=== PATIENT | female | born 1945 | race Caucasian/White ===

== ENCOUNTER 2024-04-16 01:21 | Outpatient (CLI) | payer MEDICARE, MEDICAID, SELFPAY ==
--- NOTE | 2024-04-16 11:13 | DI.RAD_ITS ---
Exam(s) XR CHEST 2V PA LATERAL EXAM: XR CHEST 2V PA LATERAL CLINICAL HISTORY: F/U RT PNEUMOTHORAX, J94.2. TECHNIQUE: 2D digital imaging was performed. COMPARISON: CT CT OUTSIDE IMAGES CHEST from 03/26/2024 CR XR CHEST PORTABLE 1 VIEW from 04/05/2024 FINDINGS: 2 views: Nasal oxygen tubing noted. Heart size is normal. The mediastinum is not widened. There is bilateral hyperinflation again noted. There has been some re-expansion of the collapsed rig ht lower lobe seen on outside chest x-ray of 04/05/2024. There is a small right pleural effusion aga in noted. There is infiltrate in the right middle lobe medial segment. There is no pneumothorax. I note this patient had a prior chest tube in place on outside CT scan of 03/26/2024. IMPRESSION: Bilateral hyperinflation-COPD. There has been some re-expansion of the right lung. There is still s ome infiltrate in the right middle lobe and there is a small right pleural effusion. There is no pne umothorax. The chest tube which was present on 03/26/2024 has been removed. DATA REPOSITORY: RADIATION DOSE DELIVERED:
== END 2024-04-16 01:41 ==
LOC: DI 01:21
PROVIDERS: PCP Internal Medicine; Visit Provider Internal Medicine
DX: J94.2 Hemothorax (principal); R91.8 Other nonspecific abnormal finding of lung field
CPT/HCPCS: 36415; 71046; 82607; 82728; 82746; 83540; 83550

== ENCOUNTER 2024-04-16 14:18 | Outpatient (CLI) | payer MEDICARE, SELFPAY ==
[2024-04-16 12:22] LABS: Ferritin 493 ng/mL (8-252); Folate 15.8 ng/mL (8.6-20.0); Vitamin B12 664 pg/mL (193-986)
[2024-04-16 12:25] LABS: Iron 111 ug/dL (50-170); Total Iron Binding Capacity 379 ug/dL (250-450); Transferrin Sat 29 % (15-50)
== END 2024-04-16 14:19 | disposition home or self-care (01) ==
LOC: LBO 14:20
PROVIDERS: PCP Internal Medicine; Visit Provider Internal Medicine
DX: D64.9 Anemia, unspecified (principal)
CPT/HCPCS: 36415; 82607; 82728; 82746; 83540; 83550

== ENCOUNTER 2024-04-24 12:22 | Outpatient (CLI) | payer MEDICARE, SELFPAY ==
[2024-04-24 12:01] LABS: HCT 39.8 % (36.0-46.0); HGB 12.2 g/dL (11.2-15.7); MCH 28.6 pg (27.0-33.0); MCHC 30.7 % (32.0-36.0); MCV 93 fL (80-95); MPV 9.9 fL (8.0-11.0); Platelet Count 308 10^3/uL (130-400); RBC 4.27 10^6/uL (3.93-5.22); RDW 18.4 % (11.7-14.6); RDW-SD 62.5 fL; WBC 7.15 10^3/uL (4.4-10.8)
== END 2024-04-24 12:23 | disposition home or self-care (01) ==
LOC: LBO 12:22
PROVIDERS: PCP Internal Medicine; Visit Provider Internal Medicine
DX: D50.9 Iron deficiency anemia, unspecified (principal); J44.9 Chronic obstructive pulmonary disease, unspecified; J90 Pleural effusion, not elsewhere classified; J96.91 Respiratory failure, unspecified with hypoxia
CPT/HCPCS: 36415; 85027

== ENCOUNTER 2024-05-01 02:16 | Outpatient (CLI) | payer MEDICARE, MEDICAID, SELFPAY ==
--- NOTE | 2024-05-01 06:45 | DI.RAD_ITS ---
Exam(s) XR CHEST 2V PA LATERAL EXAM: XR CHEST 2V PA LATERAL CLINICAL HISTORY: f/u resolution pleural effusion,j90 TECHNIQUE: 2D digital imaging was performed. Two views. COMPARISON: CR XR CHEST PORTABLE 1 VIEW from 04/05/2024 CR XR CHEST 2V PA LATERAL from 04/16/2024 FINDINGS: HEART: Normal size. Aorta: Not dilated. Calcified. PULMONARY VASCULATURE: Normal. MEDIASTINUM: Unremarkable. LUNGS: Clear. Hyperinflation. PLEURAL SPACE: No pleural effusion or pneumothorax. BONE:Severe degenerative changes of the right shoulder. SOFT TISSUES: Unremarkable. IMPRESSION: No acute abnormality. DATA REPOSITORY: RADIATION DOSE DELIVERED:
== END 2024-05-01 02:36 ==
LOC: DI 02:16
PROVIDERS: PCP Internal Medicine; Visit Provider Physician Assistant Surgical
DX: J90 Pleural effusion, not elsewhere classified (principal)
CPT/HCPCS: 71046

== ENCOUNTER 2024-05-09 04:10 | Outpatient (CLI) | payer MEDICARE, MEDICAID, SELFPAY ==
[2024-05-09] MEDS: Inhaler, Assist Device 1 EACH MC (11:48)
[2024-05-09] MEDS: Levalbuterol HFA 15 GM INH 4 PUFF IH (11:48)
--- NOTE | 2024-05-28 12:55 | W.PFT ---
Date of service: 05/09/24 Time of Service: 10:05 Pulmonary Function Test Result Indications: COPD Interpretation Spirometry: There is severe airflow limitation. Technically no significant bronchodilator response. Lung Volumes: There is air trapping and hyperinflation. Diffusion Capacity: Decreased diffusion Airway Pressure: Increased airways resistance Impression Severe airflow obstruction with air trapping and a decreased diffusion. Clinical Correlation therefore is recommended.
== END 2024-05-09 04:11 | disposition home or self-care (01) ==
LOC: RT 04:10
PROVIDERS: PCP Internal Medicine; Visit Provider Student in an Organized Health Care Education/Training Program
DX: J44.9 Chronic obstructive pulmonary disease, unspecified (principal)
CPT/HCPCS: 94060; 94726; 94729

== ENCOUNTER 2024-05-23 16:26 | Outpatient (REF) | payer MEDICARE, SELFPAY ==
[2024-05-23 21:31] LABS: Abs Immature Grans 0.02 10^3/uL (0.0-0.06); Absolute Basophil Count 0.06 10^3/uL (0.0-0.2); Absolute Eosinophil Count 0.15 10^3/uL (0.0-0.7); Absolute Lymphocyte Count 1.16 10^3/uL (1.2-3.4); Absolute Monocyte Count 0.63 10^3/uL (0.1-0.8); Absolute Neutrophil Count 7.32 10^3/uL (1.2-6.7); Basophils % 0.6 %; Eosinophils % 1.6 %; HCT 37.3 % (36.0-46.0); HGB 11.8 g/dL (11.2-15.7); Immature Grans % 0.2 %; Lymphocytes % 12.4 %; MCH 28.9 pg (27.0-33.0); MCHC 31.6 % (32.0-36.0); MCV 91 fL (80-95); MPV 10.5 fL (8.0-11.0); Monocytes % 6.7 %; Neutrophils % 78.5 %; Platelet Count 324 10^3/uL (130-400); RBC 4.08 10^6/uL (3.93-5.22); RDW-SD 54.2 fL; WBC 9.34 10^3/uL (4.4-10.8)
[2024-05-23 21:46] LABS: Iron 83 ug/dL (50-170); Total Iron Binding Capacity 341 ug/dL (250-450); Transferrin Sat 24 % (15-50)
[2024-05-23 22:08] LABS: ALT 27 U/L (14-59); AST 21 U/L (15-37); Alkaline Phosphatase 93 U/L (46-116); Anion Gap 6.2 mmol/L (3-11); BUN 16 mg/dL (7-18); Bilirubin, Total 0.21 mg/dL (0.2-1.0); CO2 30.8 mmol/L (21.0-32.0); CREATININE 0.5 mg/dL (0.55-1.02); Calcium 9.4 mg/dL (8.5-10.1); Calculated LDL 101 mg/dL (<100); Chloride 102 mmol/L (98-107); Cholesterol 207 mg/dL (<200); Estimated GFR 96.54 (mL/min/1.73m2); Ferritin 53 ng/mL (8-252); Glucose 88 mg/dL (74-106); HDL Cholesterol 94 mg/dL (40-60); Sodium 139 mmol/L (136-145); Triglyceride 61 mg/dL (<150); Vitamin D 25 Total 18.9 ng/mL (30-100)
== END 2024-05-23 16:27 | disposition home or self-care (01) ==
LOC: NCHCN 16:26
PROVIDERS: PCP Internal Medicine; Visit Provider Nurse Practitioner Family
DX: E78.5 Hyperlipidemia, unspecified (principal); D64.9 Anemia, unspecified; M81.0 Age-related osteoporosis without current pathological fracture
CPT/HCPCS: 80053; 80061; 82306; 82728; 83540; 83550; 85025

== ENCOUNTER 2024-05-28 13:16 | Outpatient (REF) | payer MEDICARE, SELFPAY ==
[2024-05-28 14:28] LABS: Bilirubin Negative (Negative); Blood Negative (Negative); Clarity Clear (Clear); Glucose Negative (Negative); Ketones Negative (Negative); Leukocyte Esterase Negative (Negative); Nitrite Negative (Negative); Specific Gravity 1.015 (1.005-1.025); Urobilinogen 0.2 mg/dL (Up to 0.2)
[2024-05-28 14:48] LABS: COMMENT (LAB VIEW ONLY) < 13.00 mg/dL
== END 2024-05-28 13:17 | disposition home or self-care (01) ==
LOC: NCHCN 13:16
PROVIDERS: PCP Internal Medicine; Visit Provider Nurse Practitioner Family
DX: I10 Essential (primary) hypertension (principal)
CPT/HCPCS: 81003; 82043; 82570

== ENCOUNTER 2024-06-05 10:03 | Emergency (ER) | payer MEDICARE, MEDICAID, SELFPAY ==
[2024-06-05 10:22] VITALS: BP 160/77; PULSE 88; RESP 20; TEMP 36.9; O2SAT 95
--- NOTE | 2024-06-05 10:30 | DI.CT_ITS ---
Exam(s) CT THORACIC LUMBAR SPINE WO EXAM: CT THORACIC LUMBAR SPINE WO CLINICAL HISTORY: left paraspinal pain, eval for fx or mass. TECHNIQUE: Imaging Protocol: Axial computed tomography images with coronal and sagittal reformatted images were created and reviewed. COMPARISON: CT CT OUTSIDE IMAGES CHEST from 03/26/2024 CR XR CHEST 2V PA LATERAL from 04/16/2024 CR XR CHEST 2V PA LATERAL from 05/01/2024 FINDINGS: Bones: There is now is superior compression fracture deformity of T9. This was not present on the pr ior chest x-ray from 05/01/2024. There is loss of less than 15 percent of the height of the vertebral body. There is no retropulsion or involvement of the posterior vertebral body. The alignment of th e spine is normal including the cervicothoracic junction and the thoracolumbar junction. Soft tissues: Moderately severe centrilobular emphysematous changes are present in the lungs. There is unchanged scarring and bronchiectasis in the right middle lobe. No large disk herniations are nena ntified. There is a perineural root sleeve cyst in the left sacrum. IMPRESSION: 1. Superior compression fracture of T9. This is new since the most recent examination from 05/01/2024 . There is loss of less than 15 percent of the height of the vertebral body present. 2. No acute fracture or subluxation in the lumbar spine. RADIATION DOSE DELIVERED: 914.49mGy.cm Total DLP DATA REPOSITORY: All CT scans at this facility are submitted to the National Radiology Data Registry (NRDR) Dose Index Registry (DIR) with the [employer] ([employer]). RADIATION OPTIMIZATION: All CT scans at this facility use at least one of these dose optimization te chniques: automated exposure control; mA and/or kV adjustment per patient size (includes targeted exa ms where dose is matched to clinical indication); or iterative reconstruction.
[2024-06-05] MEDS: predniSONE 20 MG TAB 60 MG PO (10:51)
[2024-06-05] MEDS: Ketorolac 15 MG/ML VIAL IM (10:52)
[2024-06-05] MEDS: Acetaminophen 500 MG TAB 1000 MG PO (10:52)
[2024-06-05] MEDS: Lidocaine 5% Patch 1 PATCH TP (10:52)
[2024-06-05] MEDS: Cyclobenzaprine 10 MG TAB PO (10:52)
[2024-06-05 11:31] LABS: Bilirubin Negative (Negative); Blood Negative (Negative); Clarity Clear (Clear); Glucose Negative (Negative); Ketones Trace mg/dL (Negative); Leukocyte Esterase Negative (Negative); Nitrite Negative (Negative); Urobilinogen 0.2 mg/dL (Up to 0.2)
--- NOTE | 2024-06-05 12:53 | W.ED.GENAD ---
Discharge Plan Disposition Patient Disposition: Home Condition: Good Discharge Details Clinical Impression: Compression fracture of thoracic vertebra Primary Care Provider: Dorcas Nettles ED Provider: Peter Walden Home Meds and New Rx's Prescriptions: New cyclobenzaprine 10 mg tablet 10 mg PO TID Qty: 14 0RF prednisone 50 mg tablet 50 mg PO DAILY Qty: 5 0RF lidocaine [Lidoderm] 5 % adhesive patch,medicated 1 patch Topical Q24H Qty: 15 0RF No Action diltiazem HCl 120 mg capsule,extended release 24hr 120 mg PO DAILY azithromycin 250 mg tablet 250 mg PO DAILY Qty: 90 3RF Patient Comments: three times a week ipratropium-albuterol 0.5 mg-3 mg(2.5 mg base)/3 mL solution for nebulization 3 ml inhalation TID PRN albuterol sulfate 90 mcg/actuation HFA aerosol inhaler 2 puff inhalation Q4H albuterol sulfate 2.5 mg /3 mL (0.083 %) solution for nebulization 2.5 mg inhalation Q6H PRN atorvastatin 20 mg tablet 20 mg PO DAILY omeprazole 20 mg capsule,delayed release(DR/EC) 20 mg PO DAILY Trelegy Ellipta 100-62.5-25 mcg blister with device 1 inh inhalation DAILY Discharge Instructions Instructions: Vertebral Compression Fracture ED Additional Instructions: At this time you have a small compression fracture for your vertebral spine at T9. This can cause significant pain and take a fair bit of time to heal. I expect 1 to 2 months for potential resolution. In the meantime do not lift anything greater than 5 pounds for the next 2 weeks. Avoid any significant vigorous physical activity. Perform easy gentle regular activities at home without any significant bending or lifting. Please take the steroids as directed. You have been given a prescription for Lidoderm patch. If your insurance does not cover this you can get [id number] Lidoderm patches at 4% which are almost just as effective. Please take the Flexeril as directed but do not take it when driving or operating any vehicles or heavy machinery, swimming, taking long baths, or operating firearms. Please use a heating pad as often as possible on your back. Perform daily gentle stretches on your back. Please continue to take the Tylenol and Aleve. You can take 1000 mg of Tylenol every 6 hours and your Aleve as prescribed. If you notice any worsening of your symptoms, or any new symptoms such as vomiting, diarrhea, fever, chills, shortness of breath, chest pain, numbness or tingling in your groin or legs, weakness in your legs, loss of control for your bowels or bladder, or fainting , please return immediately to the emergency department for reevaluation. Please follow up with your primary care provider as soon as possible for reassessment and reevaluation. As always, it was a pleasure participating in your medical care today. Referrals: Dorcas Nettles [Primary Care Provider] - Discharge Data Discharge Date/Time-TO BE ENTERED AT DEPARTURE: 06/05/24 13:11 HPI General Date/Time Provider Initiated Documentation: 06/05/24 10:26. HPI Narrative: 79-year-old female with a past medical history of COPD, on 2 L of baseline oxygenation, presents today for evaluation of back pain. Patient states that on Monday 4 days ago she developed moderate lower back pain. She denies any falls or traumas or excessive atypical work. She states that the pain is achy and severe in her back. It is worse with movement. It was improved with Aleve. Patient denies any saddle anesthesia, numbness or tingling in the groin, change in sensation when wiping. Patient denies any change in sensation during sexual intercourse, bowel or bladder incontinence, leakage, or retention. Patient denies any weakness in the lower extremities, atypical falls or imbalance. She denies any IV or illicit drug use. She denies any fever or chills. Related Data Home Medications ?Medication ?Instructions ?Recorded ?Confirmed albuterol sulfate 2.5 mg/3 mL 2.5 mg inhalation Q6H PRN 04/18/23 06/05/24 (0.083 %) solution for nebulization albuterol sulfate 90 mcg/actuation 2 puff inhalation Q4H 04/18/23 06/05/24 aerosol inhaler atorvastatin 20 mg tablet 20 mg PO DAILY 04/18/23 06/05/24 fluticasone fur. 100 mcg-umeclid 1 inh inhalation DAILY 04/18/23 06/05/24 62.5 mcg-vilant 25 mcg inhalat.powder (Trelegy Ellipta) ipratropium 0.5 mg-albuterol 3 mg 3 ml inhalation TID PRN 04/18/23 06/05/24 (2.5 mg base)/3 mL nebulization soln omeprazole 20 mg capsule,delayed 20 mg PO DAILY 04/18/23 06/05/24 release azithromycin 250 mg tablet 250 mg PO DAILY #90 tabs 04/24/24 06/05/24 diltiazem HCl 120 mg 120 mg PO DAILY 04/24/24 06/05/24 capsule,extended release 24 hr cyclobenzaprine 10 mg tablet 10 mg PO TID #14 tabs 06/05/24 lidocaine 5 % topical patch 1 patch topical Q24H #15 ea 06/05/24 (Lidoderm) prednisone 50 mg tablet 50 mg PO DAILY #5 tabs 06/05/24 Previous Rx's ?Medication ?Instructions ?Recorded azithromycin 250 mg tablet 250 mg PO DAILY #90 tabs 04/24/24 cyclobenzaprine 10 mg tablet 10 mg PO TID #14 tabs 06/05/24 lidocaine 5 % topical patch 1 patch topical Q24H #15 ea 06/05/24 (Lidoderm) prednisone 50 mg tablet 50 mg PO DAILY #5 tabs 06/05/24 Allergies Allergy/AdvReac Type Severity Reaction Status Date / Time pollen extracts Allergy Unknown Other (See Verified 06/05/24 10:27 Comment) sulfamethoxazole (From Allergy Unknown Other (See Verified 06/05/24 10:27 Sulfamethoxazole-Trimethoprim) Comment) trimethoprim (From Allergy Unknown Other (See Verified 06/05/24 10:27 Sulfamethoxazole-Trimethoprim) Comment) lemon Allergy Other (See Verified 06/05/24 10:27 Comment) seasonal Allergy Unknown Other (See Uncoded 06/05/24 10:27 Comment) sulfa drugs Allergy Unknown Other (See Uncoded 06/05/24 10:27 Comment) General Stated Complaint: Nk/Back Pain SHAREE: 3 Exam Narrative Exam Narrative: 1.Const: Well-nourished, Well-developed, appearing stated age 2.Eyes: PERRL, no conjunctival injection, and symmetrical lids. 3.ENT: Atraumatic external nose and ears. Moist MM. Neck: Symmetric, trachea midline, No thyromegaly. 4.CVS: +S1/S2, Peripheral pulses 2+ and equal in all extremities. Brisk capillary refill in all extremities. 5.RESP: Unlabored respiratory effort. Clear to auscultation bilaterally. No wheezes rales or rhonchi 6.GI: Soft, Nontender/Nondistended, No hepatosplenomegaly. No guarding or rebound. 7.MSK: Normocephalic/Atraumatic, Extremities w/o deformity or ttp No cyanosis or clubbing, Normal movement of all extremities No midline tenderness to palpation over the CLS spine. Patient does have mild tenderness in the lower thoracic vertebra in the paraspinal regions around T9-10. Normal ROM in flexion, extension, side bend, and rotation. Patient has +5 out of 5 strength in the lower extremities in dorsiflexion and plantarflexion, knee flexion and extension, hip flexion and extension. Normal strength for dorsiflexion and plantar flexion of the great toe bilaterally. There is +2 over 2 dorsalis pedis pulses bilaterally. There is normal sensation to the skin with light touch at the foot, knee, and hip. Normal saddle sensation. Good sensation over the deep sural nerve area bilaterally. Rectal exam demonstrates good rectal tone with excellent loco-rectal sensation. Reflexes are +2 over 4 in the patellar reflex bilaterally. +5 out of 5 strength in the medial, ulnar, radial nerve distribution bilaterally in the hands as well as intact light touch sensation to these dermatomes on the hands 8.Skin: Warm, Dry. No rashes or lesions. 9.Neuro: milk pasteurizer II-XII grossly intact. Sensation grossly intact, no focal neurologic deficits. 10.Psych: (AAO) x3. Appropriate mood and affect Course Vital Signs Vital signs: Vital Signs Temperature 36.9 C 06/05/24 10:22 Pulse 88 06/05/24 10:22 Respiratory Rate 20 06/05/24 10:22 Blood Pressure 160/77 H 06/05/24 10:22 Pulse Oximetry 95 06/05/24 10:22 Temperature 36.9 C 06/05/24 10:22 Temperature Source Tympanic 06/05/24 10:22 Pulse 88 06/05/24 10:22 Respiratory Rate 20 06/05/24 10:22 Blood Pressure 160/77 H 06/05/24 10:22 Pulse Oximetry 95 06/05/24 10:22 Oxygen Delivery Method Nasal Cannula 06/05/24 10:22 Oxygen Flow Rate 2 06/05/24 10:22 Pain Level 3 06/05/24 10:53 Lab/Test Results Lab/Test Results: Laboratory Tests Range/Units 06/05/24 11:10 Urine Color (Yellow) Yellow Urine Clarity (Clear) Clear Urine pH (5-8) 6.0 Ur Specific [place] (1.005-1.025) 1.020 Urine Protein (Neg-Trace) mg/dL Negative Urine Ketones (Negative) mg/dL Trace H Urine Blood (Negative) Negative Urine Nitrite (Negative) Negative Urine Bilirubin (Negative) Negative Urine Urobilinogen (Up to 0.2) mg/dL 0.2 Ur Leukocyte Esterase (Negative) Negative Urine Glucose (Negative) mg/dL Negative Medical Decision Making 79-year-old female with a past medical history of COPD, on 2 L of baseline oxygenation, presents today for evaluation of back pain. Patient states that on Monday 4 days ago she developed moderate lower back pain. She denies any falls or traumas or excessive atypical work. She states that the pain is achy and severe in her back. It is worse with movement. It was improved with Aleve. Patient denies any saddle anesthesia, numbness or tingling in the groin, change in sensation when wiping. Patient denies any change in sensation during sexual intercourse, bowel or bladder incontinence, leakage, or retention. Patient denies any weakness in the lower extremities, atypical falls or imbalance. She denies any IV or illicit drug use. She denies any fever or chills. Exam demonstrates well-appearing female, no neurologic deficits or abnormalities that she is just quad equina syndrome or other concerning etiology. She does have mild paraspinal spasm and tenderness around the T9 and T10 area. Concern for potential osseous injury, but with her age and risk factors of tobacco use, tumor certainly on the differential as well. Schmorl's nodes or osteoporosis is certainly a component on the differential. We will get CT imaging, treat with Lidoderm patch and muscle relaxant, monitor closely and reassess. CT imaging shows evidence of a superior compression fracture at T9, which appears to be new compared to prior CT scan in April. Patient is feeling much better after medication. She feels well and would like to go home. Will recommend continued muscle relaxant NSAID therapy and Lidoderm patch at home. Patient stable for discharge with no neurologic deficits to suggest neurovascular compromise. Discussed red flags for which to return. I have extensively reviewed the treatment plan and discharge instructions with the patient. I have addressed all patient concerns at this time. The patient was made aware of what symptoms to monitor for that would warrant a return to the emergency department. Discussed the plan with the patient, they demonstrate verbal understanding and agreement with our assessment and plan at this time. The documentation in this chart was dictated using [employer] dictation software. Please excuse any dictation errors. FINDINGS: Bones: There is now is superior compression fracture deformity of T9. This was not present on the prior chest x-ray from 05/01/2024. There is loss of less than 15 percent of the height of the vertebral body. There is no retropulsion or involvement of the posterior vertebral body. The alignment of the spine is normal including the cervicothoracic junction and the thoracolumbar junction. Soft tissues: Moderately severe centrilobular emphysematous changes are present in the lungs. There is unchanged scarring and bronchiectasis in the right middle lobe. No large disk herniations are identified. There is a perineural root sleeve cyst in the left sacrum. IMPRESSION: 1. Superior compression fracture of T9. This is new since the most recent examination from 05/01/2024. There is loss of less than 15 percent of the height of the vertebral body present. 2. No acute fracture or subluxation in the lumbar spine. Quality:SDOH Health Related Social Needs: No Data to Display PFSH All Active Problems (Updated 06/05/24 @ 12:54 by Peter Walden DO) Compression fracture of thoracic vertebra (Acute) Pleural effusion (Acute) Hypoxic respiratory failure (Acute) COPD (chronic obstructive pulmonary disease) (Chronic) Tear film insufficiency (Acute) Palpitations (Acute) Osteoporosis (Chronic) Nicotine dependence (Acute) Hyperlipidemia (Acute) Hearing loss (Acute) Fluid in endometrial cavity (Acute) Exposure to hepatitis B (Acute) COPD, severe (Acute) Closed fracture of tarsal and metatarsal bones (Acute) Closed fracture of left wrist (Acute) Allergic rhinitis (Acute) Adhesive capsulitis of shoulder (Acute) Acute ddc-WO-keyjlir elevation myocardial infarction (Acute) Abnormal weight loss (Acute) Abnormal findings on diagnostic imaging of liver and biliary tract (Acute) Medical History (Updated 06/05/24 @ 12:54 by Peter Walden DO) H/O mammogram 08/30/11 H/O echocardiogram 07/02/21 Urinary tract infectious disease Genitourinary symptoms Chronic obstructive pulmonary disease with (acute) lower respiratory infection Surgical History (Updated 04/18/23 @ 12:11 by May Grady) H/O tubal ligation 1974 H/O repair of rotator cuff bilateral shoulders,04/17/03 History of colonoscopy 02/04/19 Family History (Updated 04/18/23 @ 12:12 by May Grady) Mother Cancer Diabetes Hypertension Father Myocardial infarction Social History (Updated 04/18/23 @ 12:15 by May Grady) Smoking/Tobacco Use Status: Current every day Smoking risk assessment performed?: Yes Alcohol Intake: former Substance use type: does not use Additional Social history: Current tobacco user. Use:4-5 cigarettes per day. Started at age 17.
[2024-06-05] MEDS: Cyclobenzaprine 10 MG TAB, 3 TABS/BTL PO (13:05)
[2024-06-05 13:10] VITALS: BP 123/52; PULSE 75; RESP 18; O2SAT 95
== END 2024-06-05 13:11 | disposition home or self-care (01) ==
PROVIDERS: Emergency Provider Student in an Organized Health Care Education/Training Program; PCP Internal Medicine
DX: M48.54XA Collapsed vertebra, not elsewhere classified, thoracic region, initial encounter for fracture (principal); J44.9 Chronic obstructive pulmonary disease, unspecified; Z99.81 Dependence on supplemental oxygen
CPT/HCPCS: 96372; 99284; 72128; 72131; 81003; J1885; J7512

== ENCOUNTER 2024-07-03 09:46 | Emergency (ER) | payer MEDICARE, MEDICAID, SELFPAY ==
[2024-07-03] VITALS (20 sets, daily range): BP systolic 134–183; BP diastolic 56–78; PULSE 79–97; RESP 14–28; TEMP 36.5; O2SAT 1–100
--- NOTE | 2024-07-03 10:00 | RT.EKG_ITS ---
APPROVED REPORT Exam: Resting ECG Reason for Exam: SOB Patient Location: E HR:85 bpm ECG Measurements Heart Rate 85 AXIS AZ 105 P 84 QRSd 73 QRS 72 QT 358 T 55 QTc 423 Conclusion Sinus rhythm, rate 85 PACs No interval abnormalities No STEMI No priors available for comparison
[2024-07-03 10:37] LABS: Abs Immature Grans 0.03 10^3/uL (0.0-0.06); Absolute Basophil Count 0.04 10^3/uL (0.0-0.2); Absolute Eosinophil Count 0.14 10^3/uL (0.0-0.7); Absolute Lymphocyte Count 1.04 10^3/uL (1.2-3.4); Absolute Monocyte Count 0.52 10^3/uL (0.1-0.8); Absolute Neutrophil Count 5.41 10^3/uL (1.2-6.7); Basophils % 0.6 %; Eosinophils % 1.9 %; HCT 38.9 % (36.0-46.0); Immature Grans % 0.4 %; Lymphocytes % 14.5 %; MCH 28.5 pg (27.0-33.0); MCHC 30.8 % (32.0-36.0); MCV 92 fL (80-95); Monocytes % 7.2 %; Neutrophils % 75.4 %; Platelet Count 301 10^3/uL (130-400); RBC 4.21 10^6/uL (3.93-5.22); RDW 13.6 % (11.7-14.6); WBC 7.18 10^3/uL (4.4-10.8)
--- NOTE | 2024-07-03 10:37 | ED.GENADUL_ITS ---
Discharge Plan Disposition Patient Disposition: Home Condition: Good Discharge Details Clinical Impression: COPD exacerbation Primary Care Provider: Mechelle Sprague ED Provider: Jaqui Marcial Home Meds and New Rx's Prescriptions: New prednisone 50 mg tablet 50 mg PO DAILY Qty: 4 0RF levofloxacin 750 mg tablet 750 mg PO DAILY Qty: 6 0RF Continued diltiazem HCl 120 mg capsule,extended release 24hr 120 mg PO DAILY azithromycin 250 mg tablet 250 mg PO DAILY Qty: 90 3RF Patient Comments: three times a week ipratropium-albuterol 0.5 mg-3 mg(2.5 mg base)/3 mL solution for nebulization 3 ml inhalation TID PRN albuterol sulfate 90 mcg/actuation HFA aerosol inhaler 2 puff inhalation Q4H albuterol sulfate 2.5 mg /3 mL (0.083 %) solution for nebulization 2.5 mg inhalation Q6H PRN atorvastatin 20 mg tablet 20 mg PO DAILY omeprazole 20 mg capsule,delayed release(DR/EC) 20 mg PO DAILY Trelegy Ellipta 100-62.5-25 mcg blister with device 1 inh inhalation DAILY prednisone 50 mg tablet 50 mg PO DAILY Qty: 5 0RF Discharge Instructions Instructions: COPD Exacerbation, Adult ED Additional Instructions: As we discussed, your x-ray is reassuring, your labs are reassuring. However, your exam was concerning for COPD exacerbation. Please take your medications previously prescribed. Please take the steroids and antibiotics as prescribed, next dosing is due tomorrow. Please encourage hydration. Please keep upcoming pulmonary appointment. Please follow prior oxygen use recommendations. If you develop increased work of breathing, shortness of breath, increased chest pain or other new/worsening symptoms, please seek care urgently once again. Referrals: Mechelle Sprague [Primary Care Provider] - Janet Peña PA [[facility]] - Discharge Data Discharge Date/Time-TO BE ENTERED AT DEPARTURE: 07/03/24 12:42 HPI General Date/Time Provider Initiated Documentation: 07/03/24 09:48 . Limitations to Documentation: no limitations . Information obtained by: patient, family (Home care provider) and RN notes reviewed . History of Present Illness 79 year old F presents to the emergency department with the chief complaint of Shortness of breath, decreased oxygen, chest tightness, described as moderate and similar to prior episodes, Quality is described as other (Tightness), and is localized to the chest. Patient started experiencing this day(s) (5) and it has been constant. Immobilization improves symptom(s), Movement worsens symptoms . Patient notes chest pain, cough, malaise and shortness of breath; denies diaphoresis, fever/chills, headaches, loss of appetite, nausea/vomiting and rash. Patient did receive the following treatments prior to arrival, none Related Data Home Medications ?Medication ?Instructions ?Recorded ?Confirmed albuterol sulfate 2.5 mg/3 mL 2.5 mg inhalation Q6H PRN 04/18/23 07/03/24 (0.083 %) solution for nebulization albuterol sulfate 90 mcg/actuation 2 puff inhalation Q4H 04/18/23 07/03/24 aerosol inhaler atorvastatin 20 mg tablet 20 mg PO DAILY 04/18/23 07/03/24 fluticasone fur. 100 mcg-umeclid 1 inh inhalation DAILY 04/18/23 07/03/24 62.5 mcg-vilant 25 mcg inhalat.powder (Trelegy Ellipta) ipratropium 0.5 mg-albuterol 3 mg 3 ml inhalation TID PRN 04/18/23 07/03/24 (2.5 mg base)/3 mL nebulization soln omeprazole 20 mg capsule,delayed 20 mg PO DAILY 04/18/23 07/03/24 release azithromycin 250 mg tablet 250 mg PO DAILY #90 tabs 04/24/24 07/03/24 diltiazem HCl 120 mg 120 mg PO DAILY 04/24/24 07/03/24 capsule,extended release 24 hr prednisone 50 mg tablet 50 mg PO DAILY #5 tabs 06/05/24 07/03/24 levofloxacin 750 mg tablet 750 mg PO DAILY #6 tabs 07/03/24 prednisone 50 mg tablet 50 mg PO DAILY #4 tabs 07/03/24 Previous Rx's ?Medication ?Instructions ?Recorded azithromycin 250 mg tablet 250 mg PO DAILY #90 tabs 04/24/24 prednisone 50 mg tablet 50 mg PO DAILY #5 tabs 06/05/24 levofloxacin 750 mg tablet 750 mg PO DAILY #6 tabs 07/03/24 prednisone 50 mg tablet 50 mg PO DAILY #4 tabs 07/03/24 Allergies Allergy/AdvReac Type Severity Reaction Status Date / Time pollen extracts Allergy Unknown Other (See Verified 07/03/24 10:07 Comment) sulfamethoxazole (From Allergy Unknown Other (See Verified 07/03/24 10:07 Sulfamethoxazole-Trimethoprim) Comment) trimethoprim (From Allergy Unknown Other (See Verified 07/03/24 10:07 Sulfamethoxazole-Trimethoprim) Comment) lemon Allergy Other (See Verified 07/03/24 10:07 Comment) seasonal Allergy Unknown Other (See Uncoded 07/03/24 10:07 Comment) sulfa drugs Allergy Unknown Other (See Uncoded 07/03/24 10:07 Comment) General Stated Complaint: RespSymp SHAREE: 3 Review of Systems Constitutional Constitutional: Reports as per HPI, Denies chills, Denies fever(s), Denies headache(s) and Denies poor appetite Eyes Eyes: Denies change in vision ENT Ears, Nose, Mouth, and Throat: Denies dizziness and Denies headache(s) Cardiovascular Cardiovascular: Reports as per HPI Respiratory Respiratory: Reports as per HPI, Denies chest congestion, Denies cough, Denies pain on inspiration and Denies pain with cough Gastrointestinal Gastrointestinal: Reports as per HPI, Denies abdominal pain, Denies diarrhea, Denies nausea and Denies vomiting Musculoskeletal Musculoskeletal: Reports as per HPI and Denies back pain Integumentary/Breasts Skin/Breast: Reports as per HPI and Denies rash Neurologic Neurologic: Reports as per HPI, Denies dizziness and Denies headache(s) Exam Const General: cooperative, comfortable, no acute distress, well developed and ill appearing chronically Nutritional Appearance: cachectic Orientation: alert, awake and oriented x3 HENMT Head: normal to inspection Ears: hearing grossly normal bilaterally Mouth: moist mucous membranes Chest Chest: normal inspection of the chest, normal palpation of entire chest wall and no crepitus Resp Effort & Inspection: normal respiratory effort, able to speak in complete sentences and no respiratory distress Auscultation: wheezes expiratory wheezes Cardio Rate: regular rate Rhythm: regular rhythm Heart Sounds: S1 normal and S2 normal GI Inspection: normal to inspection, no edema and non-distended Palpation: soft, no hepatosplenomegaly, not firm, no guarding, not rigid and nontender Skin General skin exam: no rashes or lesions noted Trauma: no lacerations or abrasions Neuro General: patient alert, patient awake and patient oriented x3 Cognition: normal cognition Speech: speech normal Gait: normal gait Extrem General: normal to inspection, capillary refill normal, no pedal edema, no calf tenderness and normal gait Course Vital Signs Vital signs: Vital Signs Temperature 36.5 C 07/03/24 09:52 Pulse 92 H 07/03/24 09:52 Respiratory Rate 20 07/03/24 09:52 Blood Pressure 183/78 H 07/03/24 09:52 Pulse Oximetry 98 07/03/24 09:52 Temperature 36.5 C 07/03/24 09:52 Temperature Source Oral 07/03/24 09:52 Pulse 92 H 07/03/24 09:52 Respiratory Rate 20 07/03/24 09:52 Respiratory Effort Short of Breath, Labored 07/03/24 10:12 Respiratory Depth Deep 07/03/24 10:12 Blood Pressure 183/78 H 07/03/24 09:52 Pulse Oximetry 98 07/03/24 10:12 Oxygen Delivery Method Room Air 07/03/24 10:12 Oxygen Flow Rate 1 07/03/24 10:12 Comment decreased to 1L 07/03/24 09:52 Medical Decision Making Patient is a pleasant 79-year-old female, accompanied by home care provider, presented with chief complaint of increased work of breathing, shortness of breath, chest tightness for the past 5 days. Past medical history significant for COPD, pleural effusion. Patient has also had history of pneumothorax and respiratory failure. She is on 2 L nasal cannula at baseline at home. Has been using her breathing treatments as previously recommended by pulmonology. Is chronically on azithromycin. She reports that she does have a chronic cough which initially she described is unchanged but her home care provider reports that the frequency seems to have increased. Patient continues to smoke although she states that this is difficult given her increased shortness of breath. She reports that her oxygen at home has been dipping more frequently as low as the 70s even with her home concentrator still applied. States that the chest tightn ess is chronic and unchanged from baseline although she does report it is an elephant sitting on my chest. On exam, patient appears chronically ill and cachectic. She is hemodynamically stable with an oxygen at 98 to 99% on 1 L nasal cannula. She has diffuse expiratory wheezing on exam. No lower extremity swelling or calf tenderness. Normal cardiac exam. She close distal pulses. Your history and exam are most consistent with a COPD exacerbation. She is not currently on any steroids. Will give methylprednisolone, breathing treatment and reevaluate. Will obtain a chest x-ray and labs. I did consider ACS based on her chest tightness although she is reporting this to be more chronic. She does not appear to be any respiratory distress at this point. CXR reviewed by radiologist: HEART: Normal size. Aorta: Not dilated. Calcified. PULMONARY VASCULATURE: Normal. MEDIASTINUM: Unremarkable. LUNGS: Hyperinflated. Emphysematous changes. No focal infiltrate. No evidence of pulmonary edema. PLEURAL SPACE: No pleural effusion or pneumothorax. BONE:Unr severe degenerative changes in the right shoulder. SOFT TISSUES: Unremarkable. IMPRESSION: No acute abnormality. Reevaluated, patient feeling improveda fter steroids and duo neb. She is clearer in the bases, still wheezing at the apeces. Will give another breathign treatment. Labs reassuring, awaiting repeat troponin. RT at bedside, patient having difficulty with device, they are discussing. Touched base with Janet Peña who patient sees patient in pulmonary clinic. Will add Levo to the above regimen for outpatient managemetn for COPD exacerbation. Discussed with patient. She reports feeling continued significantly better and agrees that she going home and feels like dancing. Will continue on antibiotics and steroids. Strict return precautions were discussed. RT was here and they did evaluate patient's compressor and gave education on how to use this more appropriately. Encouraged that she keep upcoming appointment with pulmonology. Return precautions were discussed. All of her questions and concerns were addressed and she is in agreement this plan. This documentation was generated using [employer] system, please disregard any oddities of phrase or misspellings. Quality:SDOH Health Related Social Needs: No Data to Display PFSH All Active Problems (Updated 07/03/24 @ 12:29 by PAWAN Singh) COPD exacerbation (Acute) Compression fracture of thoracic vertebra (Acute) Pleural effusion (Acute) Hypoxic respiratory failure (Acute) COPD (chronic obstructive pulmonary disease) (Chronic) Tear film insufficiency (Acute) Palpitations (Acute) Osteoporosis (Chronic) Nicotine dependence (Acute) Hyperlipidemia (Acute) Hearing loss (Acute) Fluid in endometrial cavity (Acute) Exposure to hepatitis B (Acute) COPD, severe (Acute) Closed fracture of tarsal and metatarsal bones (Acute) Closed fracture of left wrist (Acute) Allergic rhinitis (Acute) Adhesive capsulitis of shoulder (Acute) Acute [id number] elevation myocardial infarction (Acute) Abnormal weight loss (Acute) Abnormal findings on diagnostic imaging of liver and biliary tract (Acute) Medical History (Updated 07/03/24 @ 12:29 by PAWAN Singh) H/O mammogram 08/30/11 H/O echocardiogram 07/02/21 Urinary tract infectious disease Genitourinary symptoms Chronic obstructive pulmonary disease with (acute) lower respiratory infection Surgical History (Updated 04/18/23 @ 12:11 by May Grady) H/O tubal ligation 1974 H/O repair of rotator cuff bilateral shoulders,04/17/03 History of colonoscopy 02/04/19 Family History (Updated 04/18/23 @ 12:12 by May Grady) Mother Cancer Diabetes Hypertension Father Myocardial infarction Social History (Updated 04/18/23 @ 12:15 by May Grady) Smoking/Tobacco Use Status: Current every day Tobacco Type: cigarettes Years smoked: 50 Tobacco: How many years used: 50 Smoking risk assessment performed?: Yes Alcohol Intake: former Drug use: Never Substance use type: does not use Housing: house Do you feel safe at home: Yes Do you feel safe in your relationship?: Yes Additional Social history: Current tobacco user. Use:4-5 cigarettes per day. Started at age 17.
[2024-07-03] MEDS: methylPREDNISolone SUCC 125 MG VIAL IVP (10:46)
[2024-07-03] MEDS: Albuterol/Ipratropium 3 ML UPD VIAL UPD ×2 (10:46→11:41)
--- NOTE | 2024-07-03 10:47 | DI.RAD_ITS ---
Exam(s) XR CHEST 2V PA LATERAL EXAM: XR CHEST 2V PA LATERAL CLINICAL HISTORY: Chest pain TECHNIQUE: 2D digital imaging was performed. Two views. COMPARISON: CT CT OUTSIDE IMAGES CHEST from 03/26/2024 CR XR CHEST PORTABLE 1 VIEW from 04/05/2024 CR XR CHEST 2V PA LATERAL from 05/01/2024 FINDINGS: HEART: Normal size. Aorta: Not dilated. Calcified. PULMONARY VASCULATURE: Normal. MEDIASTINUM: Unremarkable. LUNGS: Hyperinflated. Emphysematous changes. No focal infiltrate. No evidence of pulmonary edema. PLEURAL SPACE: No pleural effusion or pneumothorax. BONE:Unr severe degenerative changes in the right shoulder. SOFT TISSUES: Unremarkable. IMPRESSION: No acute abnormality. DATA REPOSITORY: RADIATION DOSE DELIVERED:
[2024-07-03 11:17] LABS: ALT 21 U/L (14-59); AST 19 U/L (15-37); Albumin 3.8 g/dL (3.4-5.0); Alkaline Phosphatase 101 U/L (46-116); Anion Gap 7.8 mmol/L (3-11); BUN 18 mg/dL (7-18); Bilirubin, Total 0.3 mg/dL (0.2-1.0); CO2 34.2 mmol/L (21.0-32.0); CREATININE 0.5 mg/dL (0.55-1.02); Chloride 101 mmol/L (98-107); Estimated GFR 96.54 (mL/min/1.73m2); Glucose 141 mg/dL (74-106); Magnesium 2.1 mg/dL (1.8-2.4); Potassium 4.1 mmol/L (3.5-5.1); Sodium 143 mmol/L (136-145); Total Protein 7.1 g/dL (6.4-8.2); Troponin I 10 ng/L (<or=51)
[2024-07-03] MEDS: levoFLOXacin 500 MG, levoFLOXacin 250 MG 750 MG PO (11:41)
[2024-07-03 11:55] LABS: Troponin I 9 ng/L (<or=51)
== END 2024-07-03 12:42 | disposition home or self-care (01) ==
PROVIDERS: Emergency Provider Physician Assistant; PCP Nurse Practitioner Family
DX: J44.1 Chronic obstructive pulmonary disease with (acute) exacerbation (principal); E78.5 Hyperlipidemia, unspecified; F17.210 Nicotine dependence, cigarettes, uncomplicated; Z99.81 Dependence on supplemental oxygen
CPT/HCPCS: 36415; 80053; 87426; 93005; 94640; 96374; 99285; 71046; 83735; 84484; 85025; 93010; J2919; J7620

== ENCOUNTER 2024-07-05 09:11 | Observation (INO) | payer MEDICARE, MEDICAID, SELFPAY ==
[2024-07-05] VITALS (23 sets, daily range): BP systolic 130–165; BP diastolic 52–107; PULSE 85–104; RESP 5–29; TEMP 36.4–37.4; O2SAT 94–100
--- NOTE | 2024-07-05 09:00 | RT.EKG_ITS ---
APPROVED REPORT Exam: Resting ECG Reason for Exam: Dyspnea Patient Location: E HR:89 bpm ECG Measurements Heart Rate 89 AXIS NV 108 P 89 QRSd 60 QRS 60 QT 342 T 33 QTc 417 Conclusion Sinus rhythm...normal P axis, V-rate 60- 99 Probable anterolateral infarct, old...Q>35mS, abnrm ST-T, V2-V6,I,aVL Borderline ST depression, inferior leads...ST <-0.07mV, II III aVF
[2024-07-05 09:37] LABS: Abs Immature Grans 0.07 10^3/uL (0.0-0.06); Absolute Eosinophil Count 0.03 10^3/uL (0.0-0.7); Absolute Lymphocyte Count 1.32 10^3/uL (1.2-3.4); Absolute Neutrophil Count 10.22 10^3/uL (1.2-6.7); Basophils % 0.2 %; Eosinophils % 0.2 %; HCT 38.5 % (36.0-46.0); HGB 11.9 g/dL (11.2-15.7); Immature Grans % 0.6 %; Lymphocytes % 10.5 %; MCH 28.5 pg (27.0-33.0); MCHC 30.9 % (32.0-36.0); MCV 92 fL (80-95); MPV 9.7 fL (8.0-11.0); Monocytes % 6.9 %; Neutrophils % 81.6 %; Platelet Count 363 10^3/uL (130-400); RBC 4.18 10^6/uL (3.93-5.22); RDW-SD 46.7 fL; WBC 12.53 10^3/uL (4.4-10.8)
[2024-07-05 09:38] LABS: Absolute Basophil Count 0.03 10^3/uL (0.0-0.2); Absolute Monocyte Count 0.86 10^3/uL (0.1-0.8)
[2024-07-05] MEDS: Albuterol/Ipratropium 3 ML UPD VIAL (09:45)
--- NOTE | 2024-07-05 09:45 | ED.GENADUL_ITS ---
Discharge Plan Disposition Patient Disposition: Admit to [facility] Condition: Serious Discharge Details Clinical Impression: Acute bronchitis with chronic obstructive pulmonary disease (COPD), Respiratory failure, Hypertension Admit Date/Time: 07/05/24 12:58 Admit Provider: Quinn García Attending Provider: Quinn García Primary Care Provider: Mechelle Sprague ED Provider: Shree Randall Discharge Data Discharge Date/Time-TO BE ENTERED AT DEPARTURE: 07/05/24 13:34 HPI General Mode of arrival: ambulatory . Date/Time Provider Initiated Documentation: 07/05/24 09:27 . Limitations to Documentation: no limitations . Information obtained by: patient . HPI Narrative: HISTORY OF PRESENT ILLNESS 79-year-old female with COPD, hypoxic respiratory failure, pleural effusion, hyperlipidemia, and CAD presents with worsening SOB over 2 days, especially with ambulation. Associated night sweats noted. Symptoms worsened over the past week. Evaluated Monday with x-rays; condition improved in hospital but worsened during car ride home. Yesterday, oxygen saturation dropped to 64 with ambulation; baseline is 94 on 2 L O2. Attempted to reduce O2 to 1.5 L but was unsuccessful. No swelling or fever. Reports chest pressure, tightness, and fullness. No abdominal pain, calf pain, tenderness, or leg swelling. Quit smoking several days ago; nicotine patches ineffective. On antibiotics and prednisone since yesterday, causing insomnia. History of severe end-stage COPD. Hospitalized 03/17/2024-04/06/2024 for pleural effusion and lung hole. Resumed smoking 1.5 months ago. Increased coughing over past 2 weeks. Son observed significant coughing increase. Related Data Home Medications ?Medication ?Instructions ?Recorded ?Confirmed albuterol sulfate 2.5 mg/3 mL 2.5 mg inhalation Q6H PRN 04/18/23 07/05/24 (0.083 %) solution for nebulization albuterol sulfate 90 mcg/actuation 2 puff inhalation Q4H 04/18/23 07/05/24 aerosol inhaler atorvastatin 20 mg tablet 20 mg PO DAILY 04/18/23 07/05/24 fluticasone fur. 100 mcg-umeclid 1 inh inhalation DAILY 04/18/23 07/05/24 62.5 mcg-vilant 25 mcg inhalat.powder (Trelegy Ellipta) ipratropium 0.5 mg-albuterol 3 mg 3 ml inhalation TID PRN 04/18/23 07/05/24 (2.5 mg base)/3 mL nebulization soln omeprazole 20 mg capsule,delayed 20 mg PO DAILY 04/18/23 07/05/24 release azithromycin 250 mg tablet 250 mg PO DAILY #90 tabs 04/24/24 07/05/24 diltiazem HCl 120 mg 120 mg PO DAILY 04/24/24 07/05/24 capsule,extended release 24 hr levofloxacin 750 mg tablet 750 mg PO DAILY #6 tabs 07/03/24 07/05/24 prednisone 50 mg tablet 50 mg PO DAILY #4 tabs 07/03/24 07/05/24 Previous Rx's ?Medication ?Instructions ?Recorded azithromycin 250 mg tablet 250 mg PO DAILY #90 tabs 04/24/24 levofloxacin 750 mg tablet 750 mg PO DAILY #6 tabs 07/03/24 prednisone 50 mg tablet 50 mg PO DAILY #4 tabs 07/03/24 Allergies Allergy/AdvReac Type Severity Reaction Status Date / Time pollen extracts Allergy Unknown Other (See Verified 07/05/24 09:25 Comment) sulfamethoxazole (From Allergy Unknown Other (See Verified 07/05/24 09:25 Sulfamethoxazole-Trimethoprim) Comment) trimethoprim (From Allergy Unknown Other (See Verified 07/05/24 09:25 Sulfamethoxazole-Trimethoprim) Comment) lemon Allergy Other (See Verified 07/05/24 09:25 Comment) seasonal Allergy Unknown Other (See Uncoded 07/05/24 09:25 Comment) sulfa drugs Allergy Unknown Other (See Uncoded 07/05/24 09:25 Comment) General Stated Complaint: SOB SHAREE: 3 Review of Systems All systems reviewed & are unremarkable except as noted in HPI and below Constitutional Constitutional: Reports excessive sweating Respiratory Respiratory: Reports as per HPI and Reports cough Endocrine Endocrine: Reports excessive sweating Exam Narrative Exam Narrative: PHYSICAL EXAM General Appearance: Increased work of breathing with tachypnea. Thin. Speaking in complete sentences. Vital signs: Hypertensive 165/69, tachypneic with respiratory rate of 24, saturating 94% on 2 L nasal cannula. HEENT: Within normal limits. Respiratory: Diminished breath sounds bilaterally with severe expiratory wheezing. Tachypnea. Intermittent cough. Mild respiratory distress. Cardiovascular: Heart regular rate and rhythm, no murmurs. Extremities: No leg swelling. No calf tenderness. Skin: Warm and dry, no rash. Neurological: Normal. Course Vital Signs Vital signs: Vital Signs Temperature 36.4 C 07/05/24 09:16 Pulse 88 07/05/24 09:16 Respiratory Rate 24 07/05/24 09:16 Blood Pressure 165/69 H 07/05/24 09:16 Pulse Oximetry 94 07/05/24 09:16 Temperature 36.4 C 07/05/24 09:42 Pulse 88 07/05/24 09:42 Respiratory Rate 24 07/05/24 09:42 Respiratory Effort Short of Breath, Labored 07/05/24 09:40 Respiratory Depth Normal 07/05/24 09:40 Respiratory Pattern Normal 07/05/24 09:40 Blood Pressure 165/69 H 07/05/24 09:42 Pulse Oximetry 94 07/05/24 09:42 Oxygen Delivery Method Nasal Cannula 07/05/24 09:42 Oxygen Flow Rate 3 07/05/24 09:42 Lab/Test Results Lab/Test Results: Laboratory Tests Range/Units 07/05/24 09:27 WBC (4.4-10.8) 10^3/uL 12.53 H RBC (3.93-5.22) 10^6/uL 4.18 Hgb (11.2-15.7) g/dL 11.9 Hct (36.0-46.0) % 38.5 MCV (80-95) fL 92 MCH (27.0-33.0) pg 28.5 MCHC (32.0-36.0) % 30.9 L RDW (11.7-14.6) % 14.0 Plt Count (130-400) 10^3/uL 363 MPV (8.0-11.0) fL 9.7 Immature Gran % % 0.6 Neutrophils % % 81.6 Lymphocytes % % 10.5 Monocytes % % 6.9 Eosinophils % % 0.2 Basophils % % 0.2 Nucleated RBC % (0.0-0.3) % 0.0 Absolute Neutrophils (1.2-6.7) 10^3/uL 10.22 H Absolute Lymphocytes (1.2-3.4) 10^3/uL 1.32 Absolute Monocytes (0.1-0.8) 10^3/uL 0.86 H Absolute Eosinophils (0.0-0.7) 10^3/uL 0.03 Absolute Basophils (0.0-0.2) 10^3/uL 0.03 Medical Decision Making ASSESSMENT AND PLAN Initial Assessment: Miss Al is a 79-year-old female with a history of COPD, hypoxic respiratory failure, pleural effusion, hyperlipidemia, presenting with shortness of breath worsening over the past 2 days, especially with ambulation, and associated night sweats. Differential Diagnosis: - Acute exacerbation of COPD: Severe wheezing, diminished breath sounds bila terally, severe expiratory wheezing. Baseline O2 94% on 2 L, significant drops with minimal exertion. Symptoms worsening over past week, increased coughing, chest tightness. On prednisone and antibiotics since Monday. Administer nebulizer treatments. Conduct chest x-ray to rule out effusion or pneumothorax. Hospital admission for further management and monitoring. - Pneumonia: Concern due to persistent cough and lack of improvement at home. Plan to conduct chest x-ray to rule out. ED Course: - Administer nebulizer treatments x3. Patient already took prednisone 50 mg earlier today. Patient already took Levaquin orally earlier today. -Chest x-ray was reviewed and interpreted by radiology: No acute findings. Lungs with no focal infiltrate or pulmonary edema. No pleural effusion or pne umothorax. -Respiratory therapy consulted and recommending BiPAP. -VBG reviewed, normal pH, elevated pCO2 at 62. - Hospital admission for further management and monitoring. Final Assessment: Miss Al is experiencing an acute exacerbation of COPD with severe wheezing and diminished breath sounds. She will be admitted to the hospital for further management and monitoring, including nebulizer treatments and a chest x-ray. Clinical Impression: - Acute exacerbation of COPD - Respiratory failure - Potential bronchitis Disposition: - Admission: Hospital admission for further management and monitoring. MDM Components Evaluation: - Number of Differential Diagnoses or Management Options: Acute exacerbation of COPD, potential pneumonia. - Amount and Complexity of Data Reviewed: Chest x-ray, patient history, physical examination findings. - Risk of Complication and Morbidity or Mortality: High risk due to severe COPD exacerbation, potential pneumonia, and significant drops in oxygen saturation with minimal exertion. This document was written with the assistance of KRYSTA Heck. The patient consented to its use. Lab Data Lab results reviewed: Yes I reviewed the patient's lab results. Labs: 07/05/24 10:05 Blood Blood Culture - Pending 07/05/24 10:05 Blood Blood Culture - Pending Laboratory Tests Range/Units 07/05/24 07/05/24 07/05/24 09:27 09:45 10:34 WBC (4.4-10.8) 10^3/uL 12.53 H RBC (3.93-5.22) 10^6/uL 4.18 Hgb (11.2-15.7) g/dL 11.9 Hct (36.0-46.0) % 38.5 MCV (80-95) fL 92 MCH (27.0-33.0) pg 28.5 MCHC (32.0-36.0) % 30.9 L RDW (11.7-14.6) % 14.0 Plt Count (130-400) 10^3/uL 363 MPV (8.0-11.0) fL 9.7 Immature Gran % % 0.6 Neutrophils % % 81.6 Lymphocytes % % 10.5 Monocytes % % 6.9 Eosinophils % % 0.2 Basophils % % 0.2 Nucleated RBC % (0.0-0.3) % 0.0 Absolute Neutrophils (1.2-6.7) 10^3/uL 10.22 H Absolute Lymphocytes (1.2-3.4) 10^3/uL 1.32 Absolute Monocytes (0.1-0.8) 10^3/uL 0.86 H Absolute Eosinophils (0.0-0.7) 10^3/uL 0.03 Absolute Basophils (0.0-0.2) 10^3/uL 0.03 VBG pH (7.31-7.41) 7.35 VBG pCO2 (41-51) mmHg 62 H* VBG pO2 mmHg 49 VBG HCO3 (23-28) mmol/L 34 H VBG Total CO2 (24-29) mmol/L 32 H VBG O2 Saturation % 82 VBG Base Excess (-2-3) mmol/L 8 H Sodium (136-145) mmol/L 142 Potassium (3.5-5.1) mmol/L 3.9 Chloride (98-107) mmol/L 101 Carbon Dioxide (21.0-32.0) mmol/L 34.7 H Anion Gap (3-11) mmol/L 6.3 BUN (7-18) mg/dL 19 H Creatinine (0.55-1.02) mg/dL 0.7 Est GFR (CKD-EPI 2020) (mL/min/1.73m2) 89.02 Glucose (74-106) mg/dL 123 H Calcium (8.5-10.1) mg/dL 9.8 Magnesium (1.8-2.4) mg/dL 2.1 Total Bilirubin (0.2-1.0) mg/dL 0.2 AST (15-37) U/L 19 ALT (14-59) U/L 27 Alkaline Phosphatase (46-116) U/L 92 Troponin I (<or=51) ng/L 7 NT-Pro-B Natriuret Pep (<300) pg/mL 120 Total Protein (6.4-8.2) g/dL 7.2 Albumin (3.4-5.0) g/dL 3.8 COVID-19 Source Nasopharynx SARS-CoV-2 (PCR) (Negative) Negative Influenza Type A (PCR) (Negative) Negative Influenza Type B (PCR) (Negative) Negative RSV (PCR) (Negative) Negative Quality:SDOH Health Related Social Needs: No Data to Display Critical Care Time Critical Care Time Critical Care Time: Yes Total Critical Care Time: 45 Attestation: Due to a high probability of clinically significant, life threatening deterioration, the patient required my highest level of preparedness to inte rvene emergently and I personally spent this critical care time directly and personally managing the patient. This critical care time included obtaining a history; examining the patient; pulse oximetry; ordering and review of studies; arranging urgent treatment with development of a management plan; evaluation of patient's response to treatment; frequent reassessment; and, discussions with other providers. This critical care time was performed to assess and manage the high probability of imminent, life-threatening deterioration that could result in multi-organ failure. It was exclusive of separately billable procedures and treating other patients and teaching time. Please see MDM section and the rest of the note for further information on patient assessment and treatment. PFSH All Active Problems (Updated 07/07/24 @ 15:09 by Gabriela Lama NP) Discharge planning issues (Acute) Anemia (Chronic) On deep vein thrombosis (DVT) prophylaxis (Acute) Hypertension (Chronic) Respiratory failure (Acute) Acute bronchitis with chronic obstructive pulmonary disease (COPD) (Acute) COPD exacerbation (Acute) Pleural effusion (Acute) Hypoxic respiratory failure (Chronic) COPD (chronic obstructive pulmonary disease) (Chronic) Tear film insufficiency (Acute) Palpitations (Acute) Osteoporosis (Chronic) Nicotine dependence (Acute) Hyperlipidemia (Acute) Hearing loss (Acute) Fluid in endometrial cavity (Acute) Exposure to hepatitis B (Acute) COPD, severe (Acute) Closed fracture of tarsal and metatarsal bones (Acute) Closed fracture of left wrist (Acute) Allergic rhinitis (Acute) Adhesive capsulitis of shoulder (Acute) Acute kin-LP-qrcirkx elevation myocardial infarction (Acute) Abnormal weight loss (Acute) Abnormal findings on diagnostic imaging of liver and biliary tract (Acute) Medical History H/O mammogram 08/30/11 H/O echocardiogram 07/02/21 Urinary tract infectious disease Genitourinary symptoms Chronic obstructive pulmonary disease with (acute) lower respiratory infection Surgical History H/O tubal ligation 1974 H/O repair of rotator cuff bilateral shoulders,04/17/03 History of colonoscopy 02/04/19 Family History Mother Cancer Diabetes Hypertension Father Myocardial infarction Social History Smoking/Tobacco Use Status: Current-Occasional Tobacco Type: cigarettes Years s moked: 50 Tobacco: How many years used: 60 Smoking risk assessment performed?: Yes Alcohol Intake: former Drug use: Never Substance use type: does not use Housing: house Do you feel safe at home: Yes Do you feel safe in your relationship?: Yes Additional Social history: Current tobacco user. Use:4-5 cigarettes per day. Started at age 17.
[2024-07-05] MEDS: Albuterol/Ipratropium 3 ML UPD VIAL UPD (09:57)
[2024-07-05] MEDS: Albuterol 2.5 MG/3 ML INH SOLN VIAL (09:57)
[2024-07-05 10:24] LABS: NT-proBNP 120 pg/mL (<300); Troponin I 7 ng/L (<or=51)
--- NOTE | 2024-07-05 10:27 | DI.RAD_ITS ---
Exam(s) XR CHEST 2V PA LATERAL EXAM: XR CHEST 2V PA LATERAL CLINICAL HISTORY: cough TECHNIQUE: 2D digital imaging was performed. Two views. COMPARISON: CR XR CHEST 2V PA LATERAL from 07/03/2024 FINDINGS: HEART: Normal size. Aorta: Not dilated. PULMONARY VASCULATURE: Normal. MEDIASTINUM: Unremarkable. LUNGS: No focal infiltrate or pulmonary edema.. PLEURAL SPACE: No pleural effusion or pneumothorax. BONE:Stable midthoracic compression fracture. SOFT TISSUES: Unremarkable. IMPRESSION: No acute abnormality. DATA REPOSITORY: RADIATION DOSE DELIVERED:
[2024-07-05 10:31] LABS: ALT 27 U/L (14-59); AST 19 U/L (15-37); Albumin 3.8 g/dL (3.4-5.0); Alkaline Phosphatase 92 U/L (46-116); Anion Gap 6.3 mmol/L (3-11); BUN 19 mg/dL (7-18); Bilirubin, Total 0.2 mg/dL (0.2-1.0); CO2 34.7 mmol/L (21.0-32.0); CREATININE 0.7 mg/dL (0.55-1.02); Calcium 9.8 mg/dL (8.5-10.1); Chloride 101 mmol/L (98-107); Estimated GFR 89.02 (mL/min/1.73m2); Glucose 123 mg/dL (74-106); Magnesium 2.1 mg/dL (1.8-2.4); Potassium 3.9 mmol/L (3.5-5.1); Sodium 142 mmol/L (136-145); Total Protein 7.2 g/dL (6.4-8.2)
[2024-07-05 10:37] LABS: COVID-19 PCR Negative (Negative); Influenza A PCR Negative (Negative); Influenza B PCR Negative (Negative); RSV PCR Negative (Negative)
[2024-07-05 10:39] LABS: BE (Venous) 8 mmol/L (-2-3); HCO3 (Venous) 34 mmol/L (23-28); O2 Sat (Venous) 82 %; TCO2 (Venous) 32 mmol/L (24-29); pH (Venous) 7.35 (7.31-7.41); pO2 (Venous) 49 mmHg
[2024-07-05 10:39] LABS: Source Nasopharynx
[2024-07-05 10:41] LABS: pCO2 (Venous) 62 mmHg (41-51)
[2024-07-05 11:11] LABS: Troponin I 8 ng/L (<or=51)
[2024-07-05] MEDS: Nicotine 14 MG/24 HR PATCH TD (11:15)
--- NOTE | 2024-07-05 12:43 | HPE_ITS ---
Date of service: 07/05/24 Time of Service: 12:43 Assessment and Plan Assessment and plan (1) Sepsis: Status: Acute Assessment and plan: Criteria met with wbc > 12, rr> 20 , HR > 90 with presumable respiratory source And as below (2) Hypoxic respiratory failure: Status: Acute Assessment and plan: Initially low saturation on ambulation minimal O2 requirement Hypercapinc on inital VBG- BIPAP in ED Repeat VBG pending RT consult (3) COPD exacerbation: Status: Acute Assessment and plan: End stage- attempting to get records from [facility] Seen in pulmonology at [facility] Was d/c from the Ed on Levaquin anf prednisone on 07/03 Will continue Levaquin with prednisone 60mg daily- might need a long taper Adding doxycycline Duonebs, mucinex, acapella Ongoing home ICS/ LABA and spiriva Procal pending (4) Hypertension: Status: Chronic Assessment and plan: On home medicine regimen (5) On deep vein thrombosis (DVT) prophylaxis: Status: Acute Assessment and plan: On lovenox Discussed with Dr. García History of Present Illness History of Present Illness Chief Complaint: Increased cough, SOB Narrative: This 79-year-old female with oxygen dependent COPD on chronic azithromycin, recent pneumothorax and hospitalization at [facility], hypoxic respiratory failure, pleural effusion, hyperlipidemia, and CAD presented today to the ED for increased cough and sputum production as well as worsening SOB over 2 days, especially with ambulation. Patient seen on 07/03/24 in the ED for similar symptomatology starting a few days prior and discharged on levaquin and prednisone. Presented with saturation at 89-90%, tachycardia w HR 93, tachypnea RR 27-29. The patient denied change in vision,fevers, chills, chest pain, GI symptoms or symptoms. Reports minimal dizziness, transient WHITMAN, night sweats. Workup in the ED showed not pneumonia on XR, positive for leukocytosis, VBG: PH 7.35, PCO2, 62, HCO3 34, PO2 49. BIPAP seems to have been briefly use in the ED. The patient confirmed full code status, son Theo Spencer is her POA, phone [phone]. Will try to get records from [facility], previously getting care at [facility]. Review of Systems All systems reviewed & are unremarkable except as noted in HPI and below [facility] All Active Problems (Updated 07/05/24 @ 18:08 by Mary Jo APRN) Sepsis (Acute) On deep vein thrombosis (DVT) prophylaxis (Acute) Hypertension (Chronic) Respiratory failure (Acute) Acute bronchitis with chronic obstructive pulmonary disease (COPD) (Acute) COPD exacerbation (Acute) Compression fracture of thoracic vertebra (Acute) Pleural effusion (Acute) Hypoxic respiratory failure (Acute) COPD (chronic obstructive pulmonary disease) (Chronic) Tear film insufficiency (Acute) Palpitations (Acute) Osteoporosis (Chronic) Nicotine dependence (Acute) Hyperlipidemia (Acute) Hearing loss (Acute) Fluid in endometrial cavity (Acute) Exposure to hepatitis B (Acute) COPD, severe (Acute) Closed fracture of tarsal and metatarsal bones (Acute) Closed fracture of left wrist (Acute) Allergic rhinitis (Acute) Adhesive capsulitis of shoulder (Acute) Acute [id number]-[id number] elevation myocardial infarction (Acute) Abnormal weight loss (Acute) Abnormal findings on diagnostic imaging of liver and biliary tract (Acute) Medical History H/O mammogram 08/30/11 H/O echocardiogram 07/02/21 Urinary tract infectious disease Genitourinary symptoms Chronic obstructive pulmonary disease with (acute) lower respiratory infection Surgical History H/O tubal ligation 1974 H/O repair of rotator cuff bilateral shoulders,04/17/03 History of colonoscopy 02/04/19 Family History Mother Cancer Diabetes Hypertension Father Myocardial infarction Social History Smoking/Tobacco Use Status: Current every day Tobacco Type: cigarettes Years smoked: 50 Tobacco: How many years used: 50 Smoking risk assessment performed?: Yes Alcohol Intake: former Drug use: Never Substance use type: does not use Housing: house Do you feel safe at home: Yes Do you feel safe in your relationship?: Yes Additional Social history: Current tobacco user. Use:4-5 cigarettes per day. Started at age 17. Meds Allergies and Home Medications Allergies Allergy/AdvReac Type Severity Reaction Status Date / Time pollen extracts Allergy Unknown Other (See Verified 07/05/24 09:25 Comment) sulfamethoxazole (From Allergy Unknown Other (See Verified 07/05/24 09:25 Sulfamethoxazole-Trimethoprim) Comment) trimethoprim (From Allergy Unknown Other (See Verified 07/05/24 09:25 Sulfamethoxazole-Trimethoprim) Comment) lemon Allergy Other (See Verified 07/05/24 09:25 Comment) seasonal Allergy Unknown Other (See Uncoded 07/05/24 09:25 Comment) sulfa drugs Allergy Unknown Other (See Uncoded 07/05/24 09:25 Comment) Home Medications ?Medication ?Instructions ?Recorded ?Confirmed ?Type albuterol sulfate 2.5 mg/3 mL 2.5 mg inhalation Q6H PRN 04/18/23 07/05/24 History (0.083 %) solution for nebulization albuterol sulfate 90 mcg/actuation 2 puff inhalation Q4H 04/18/23 07/05/24 History aerosol inhaler atorvastatin 20 mg tablet 20 mg PO DAILY 04/18/23 07/05/24 History fluticasone fur. 100 mcg-umeclid 1 inh inhalation DAILY 04/18/23 07/05/24 History 62.5 mcg-vilant 25 mcg inhalat.powder (Trelegy Ellipta) ipratropium 0.5 mg-albuterol 3 mg 3 ml inhalation TID PRN 04/18/23 07/05/24 History (2.5 mg base)/3 mL nebulization soln omeprazole 20 mg capsule,delayed 20 mg PO DAILY 04/18/23 07/05/24 History release azithromycin 250 mg tablet 250 mg PO DAILY #90 tabs 04/24/24 07/05/24 Rx diltiazem HCl 120 mg 120 mg PO DAILY 04/24/24 07/05/24 History capsule,extended release 24 hr levofloxacin 750 mg tablet 750 mg PO DAILY #6 tabs 07/03/24 07/05/24 Rx prednisone 50 mg tablet 50 mg PO DAILY #4 tabs 07/03/24 07/05/24 Rx Exam Narrative Exam Narrative: Constitutional The patient is sitting in bed comfortable , O2 at 1l/min sat 92-93% speaks in long sentences with rapid flow without cyanosis Appears older than stated age HENMT: Head is atraumatic, normocephalic, no lymphadenopathy. Facial structures with normal appearance Eyes: Well aligned, intact ROM Neck: Normal ROM, no meningeal signs Neuro:alert and oriented to self, person, place, time and situation. No neurological focal deficit Chest:Chest is symmetrical and > AP diameter Resp: Normal respiratory pattern, minimal labored breathing with mobilization in bed, scattered ronchi and diffused exp wheezing bilat, decrease bases Cardio: regular rhythm, S1, S2, no murmur, capillary refill<3 sec., bilateral radial and dorsalis pedis pulses are positive GI: Abdomen is not distended, soft and non tender, bowel sounds are present : Negative Costovertebral angle tenderness, no bladder distension Back/spine/Pelvis: No back tenderness, normal alignment Integumentary: No skin lesions or rash to exposed skin Extremities: strength 5/5 to bilateral lower and upper extremities Psych: RASS 0, congruent mood and normal to elated affect. Results Labs 07/05/24 09:27 07/05/24 09:27 Labs: Laboratory Results - last 24 hr 07/05/24 07/05/24 07/05/24 09:27 09:45 10:34 WBC 12.53 H RBC 4.18 Hgb 11.9 Hct 38.5 MCV 92 MCH 28.5 MCHC 30.9 L RDW 14.0 Plt Count 363 MPV 9.7 Immature Gran % 0.6 Neutrophils % 81.6 Lymphocytes % 10.5 Monocytes % 6.9 Eosinophils % 0.2 Basophils % 0.2 Nucleated RBC % 0.0 Absolute Neutrophils 10.22 H Absolute Lymphocytes 1.32 Absolute Monocytes 0.86 H Absolute Eosinophils 0.03 Absolute Basophils 0.03 VBG pH 7.35 VBG pCO2 62 H* VBG pO2 49 VBG HCO3 34 H VBG Total CO2 32 H VBG O2 Saturation 82 VBG Base Excess 8 H Sodium 142 Potassium 3.9 Chloride 101 Carbon Dioxide 34.7 H Anion Gap 6.3 BUN 19 H Creatinine 0.7 Est GFR (CKD-EPI 2020) 89.02 Glucose 123 H Calcium 9.8 Magnesium 2.1 Total Bilirubin 0.2 AST 19 ALT 27 Alkaline Phosphatase 92 Troponin I 7 8 NT-Pro-B Natriuret Pep 120 Total Protein 7.2 Albumin 3.8 COVID-19 Source Nasopharynx SARS-CoV-2 (PCR) Negative Influenza Type A (PCR) Negative Influenza Type B (PCR) Negative RSV (PCR) Negative Last Vital Signs Temp 36.4 C 07/05/24 09:42 Pulse 93 H 07/05/24 10:52 Resp 24 07/05/24 09:45 BP 165/69 H 07/05/24 09:42 Pulse Ox 97 07/05/24 11:55 Time Spent Time spent with Patient: >75 minutes Time was spent: preparing to see the patient(eg.review tests), obtaining and/or reviewing separately otained hiistory, ordering medications,tests, procedures, referring, communicating with other health medicare compliance auditor, indepentently interpreting results, counseling the patient and care coordination
[2024-07-05 13:18] LABS: Troponin I 10 ng/L (<or=51)
--- NOTE | 2024-07-05 15:57 | W.PC.ACHO ---
Registration Status: Primary Language: Preferred Language: ED Information & Data Chief Complaint SOB 07/05/24 09:47 Triage Note diff breathing increased SOB 07/05/24 09:16 since WED 64% on 2l at home with ambulation, with night sweats, x1 duoneb at home Medical / Surgical History (Last Reviewed 07/05/24 @ 10:52 by Shree Randall MD) H/O mammogram H/O echocardiogram Urinary tract infectious disease Genitourinary symptoms Chronic obstructive pulmonary disease with (acute) lower respiratory infection (Last Reviewed 07/05/24 @ 10:52 by Shree Randall MD) H/O tubal ligation H/O repair of rotator cuff History of colonoscopy Most Recent Vital Signs Temperature 37.4 C 07/05/24 13:45 Temperature Source Temporal Artery Scan 07/05/24 13:45 Pulse 95 H 07/05/24 13:45 Pulse Rhythm Regular 07/05/24 15:06 Pulse 93 H 07/05/24 12:20 Respiratory Rate 20 07/05/24 13:45 Respiratory Effort Short of Breath, Labored, Incrsd Work of Breathing 07/05/24 15:06 Respiratory Depth Shallow 07/05/24 15:06 Respiratory Pattern Tachypnea 07/05/24 15:06 Blood Pressure 157/81 H 07/05/24 13:45 Blood Pressure Mean 77 07/05/24 10:46 Pulse Oximetry 95 07/05/24 14:14 Oxygen Delivery Method Nasal Cannula 07/05/24 15:06 Oxygen Flow Rate 1 07/05/24 15:06 Fraction of Inspired Oxygen (FIO2) 28 07/05/24 10:52 Pain Level 0 07/05/24 15:06 Comment Baseline 2 LPM 07/05/24 15:06 Allergies pollen extracts Allergy (Unknown, Verified 07/05/24 09:25) Other (See Comment) sulfamethoxazole (From Sulfamethoxazole-Trimethoprim) Allergy (Unknown, Verified 07/05/24 09:25) Other (See Comment) trimethoprim (From Sulfamethoxazole-Trimethoprim) Allergy (Unknown, Verified 07/05/24 09:25) Other (See Comment) lemon Allergy (Verified 07/05/24 09:25) Other (See Comment) seasonal Allergy (Unknown, Uncoded 07/05/24 09:25) Other (See Comment) sulfa drugs Allergy (Unknown, Uncoded 07/05/24 09:25) Other (See Comment) Precautions Isolation Standard precaution 07/05/24 09:41 IV IV Catheter Type [LT AC] Saline Lock Diet Orders Category Date Time Status Heart Healthy Eating [DIET] Nutrition 07/05/24 Lunch Active Diagnostics 07/05/24 07/05/24 07/05/24 Range/Units 12:41 10:34 09:45 WBC (4.4-10.8) 10^3/uL RBC (3.93-5.22) 10^6/uL Hgb (11.2-15.7) g/dL Hct (36.0-46.0) % MCV (80-95) fL MCH (27.0-33.0) pg MCHC (32.0-36.0) % RDW (11.7-14.6) % Plt Count (130-400) 10^3/uL MPV (8.0-11.0) fL Immature Gran % % Neutrophils % % Lymphocytes % % Monocytes % % Eosinophils % % Basophils % % Nucleated RBC % (0.0-0.3) % Absolute Neutrophils (1.2-6.7) 10^3/uL Absolute Lymphocytes (1.2-3.4) 10^3/uL Absolute Monocytes (0.1-0.8) 10^3/uL Absolute Eosinophils (0.0-0.7) 10^3/uL Absolute Basophils (0.0-0.2) 10^3/uL VBG pH 7.35 (7.31-7.41) VBG pCO2 62 H* (41-51) mmHg VBG pO2 49 mmHg VBG HCO3 34 H (23-28) mmol/L VBG Total CO2 32 H (24-29) mmol/L VBG O2 Saturation 82 % VBG Base Excess 8 H (-2-3) mmol/L Sodium (136-145) mmol/L Potassium (3.5-5.1) mmol/L Chloride (98-107) mmol/L Carbon Dioxide (21.0-32.0) mmol/L Anion Gap (3-11) mmol/L BUN (7-18) mg/dL Creatinine (0.55-1.02) mg/dL Est GFR (CKD-EPI 2020) (mL/min/1.73m2) Glucose (74-106) mg/dL Calcium (8.5-10.1) mg/dL Magnesium (1.8-2.4) mg/dL Total Bilirubin (0.2-1.0) mg/dL AST (15-37) U/L ALT (14-59) U/L Alkaline Phosphatase (46-116) U/L Troponin I 10 8 (<or=51) ng/L NT-Pro-B Natriuret Pep (<300) pg/mL Total Protein (6.4-8.2) g/dL Albumin (3.4-5.0) g/dL COVID-19 Source Nasopharynx SARS-CoV-2 (PCR) Negative (Negative) Influenza Type A (PCR) Negative (Negative) Influenza Type B (PCR) Negative (Negative) RSV (PCR) Negative (Negative) 07/05/24 Range/Units 09:27 WBC 12.53 H (4.4-10.8) 10^3/uL RBC 4.18 (3.93-5.22) 10^6/uL Hgb 11.9 (11.2-15.7) g/dL Hct 38.5 (36.0-46.0) % MCV 92 (80-95) fL MCH 28.5 (27.0-33.0) pg MCHC 30.9 L (32.0-36.0) % RDW 14.0 (11.7-14.6) % Plt Count 363 (130-400) 10^3/uL MPV 9.7 (8.0-11.0) fL Immature Gran % 0.6 % Neutrophils % 81.6 % Lymphocytes % 10.5 % Monocytes % 6.9 % Eosinophils % 0.2 % Basophils % 0.2 % Nucleated RBC % 0.0 (0.0-0.3) % Absolute Neutrophils 10.22 H (1.2-6.7) 10^3/uL Absolute Lymphocytes 1.32 (1.2-3.4) 10^3/uL Absolute Monocytes 0.86 H (0.1-0.8) 10^3/uL Absolute Eosinophils 0.03 (0.0-0.7) 10^3/uL Absolute Basophils 0.03 (0.0-0.2) 10^3/uL VBG pH (7.31-7.41) VBG pCO2 (41-51) mmHg VBG pO2 mmHg VBG HCO3 (23-28) mmol/L VBG Total CO2 (24-29) mmol/L VBG O2 Saturation % VBG Base Excess (-2-3) mmol/L Sodium 142 (136-145) mmol/L Potassium 3.9 (3.5-5.1) mmol/L Chloride 101 (98-107) mmol/L Carbon Dioxide 34.7 H (21.0-32.0) mmol/L Anion Gap 6.3 (3-11) mmol/L BUN 19 H (7-18) mg/dL Creatinine 0.7 (0.55-1.02) mg/dL Est GFR (CKD-EPI 2020) 89.02 (mL/min/1.73m2) Glucose 123 H (74-106) mg/dL Calcium 9.8 (8.5-10.1) mg/dL Magnesium 2.1 (1.8-2.4) mg/dL Total Bilirubin 0.2 (0.2-1.0) mg/dL AST 19 (15-37) U/L ALT 27 (14-59) U/L Alkaline Phosphatase 92 (46-116) U/L Troponin I 7 (<or=51) ng/L NT-Pro-B Natriuret Pep 120 (<300) pg/mL Total Protein 7.2 (6.4-8.2) g/dL Albumin 3.8 (3.4-5.0) g/dL COVID-19 Source SARS-CoV-2 (PCR) (Negative) Influenza Type A (PCR) (Negative) Influenza Type B (PCR) (Negative) RSV (PCR) (Negative) 07/05/24 11:01 Blood Culture - Pending Blood 07/05/24 11:01 Blood Culture - Pending Blood Intake and Output - 24 Hour Total 07/05/24 09:11 thru 07/05/24 15:06 Intake Total 10 Balance 10 Weight 36.3 kg Intake: IV 10 Falls Risk Assessment History of Falls No History 07/05/24 15:06 Contributing Factors Impairments,Incontinence 07/05/24 15:06 Ambulatory Aids Uses ambulatory device 07/05/24 15:06 Tubes/Lines W/no contributing factors 07/05/24 15:06 Gait Evaluation No gait disturbance 07/05/24 15:06 Cognition No cognitive impairment 07/05/24 15:06 Fall Total Score 31 07/05/24 15:06 Level of Risk Moderate Risk 07/05/24 15:06 Problems (Last Reviewed 07/05/24 @ 10:52 by Shree Randall MD) Hypertension (Chronic) Respiratory failure (Acute) Acute bronchitis with chronic obstructive pulmonary disease (COPD) (Acute) v v v v v v v v v Sending and/or Receiving Nurses: Please use comment section below to note any information pertinent to the patient hand-off not included above. Information / Comments: Neuro: AxOx3 Cardiac: Tele in place Resp: SOB w/ exertion, Currently on O2 2 LPM (Baseline 2LPM) 2 duo nebs in ED, Wheezes throughout, current smoker, desats w/ ambulation GI: BSC : Dribbling with urgency Skin: nicotine patch Diagnosis: COPD exacerbation, patient was here on Monday and discharged from ED but returned to smoking cigarettes. Full code, BiPap in ED but now off, Vitals: 157/81, HR 95, RR 20, SaO2 95% O2 2LPM. Report received from: Candice 15:22
[2024-07-05] MEDS: Albuterol/Ipratropium 3 ML UPD VIAL IH (16:31)
[2024-07-05] MEDS: DOXYCYCLINE 100 MG in Normal Saline 100 ML IVPB (18:02)
[2024-07-05 18:19] LABS: BE (Venous) 9 mmol/L (-2-3); HCO3 (Venous) 33 mmol/L (23-28); O2 Sat (Venous) 97 %; TCO2 (Venous) 30 mmol/L (24-29); pCO2 (Venous) 46 mmHg (41-51); pH (Venous) 7.46 (7.31-7.41); pO2 (Venous) 80 mmHg
[2024-07-05 19:02] LABS: Procalcitonin < 0.10 ng/mL
[2024-07-05] MEDS: Budesonide/Formoterol 80/4.5 6.9 GM 60 PUFF INH IH (21:16)
[2024-07-05] MEDS: guaiFENesin 600 MG TABCR PO (21:16)
[2024-07-05] MEDS: Normal Saline Flush 10 ML SYR IVP (21:17)
[2024-07-05] MEDS: Melatonin 3 MG TAB 9 MG PO (21:56)
[2024-07-06] VITALS (9 sets, daily range): BP systolic 127–159; BP diastolic 56–64; PULSE 74–109; RESP 3–20; TEMP 36–37.3; O2SAT 93–96
[2024-07-06] MEDS: DOXYCYCLINE 100 MG in Normal Saline 100 ML IVPB ×2 (05:08→17:51)
[2024-07-06 07:01] LABS: Abs Immature Grans 0.04 10^3/uL (0.0-0.06); Absolute Basophil Count 0.01 10^3/uL (0.0-0.2); Absolute Eosinophil Count 0.07 10^3/uL (0.0-0.7); Absolute Lymphocyte Count 1.61 10^3/uL (1.2-3.4); Absolute Monocyte Count 0.97 10^3/uL (0.1-0.8); Absolute Neutrophil Count 7.42 10^3/uL (1.2-6.7); Basophils % 0.1 %; Eosinophils % 0.7 %; HCT 31.2 % (36.0-46.0); HGB 9.8 g/dL (11.2-15.7); Immature Grans % 0.4 %; Lymphocytes % 15.9 %; MCH 28.5 pg (27.0-33.0); MCHC 31.4 % (32.0-36.0); MCV 91 fL (80-95); MPV 9.6 fL (8.0-11.0); Monocytes % 9.6 %; Neutrophils % 73.3 %; Platelet Count 275 10^3/uL (130-400); RBC 3.44 10^6/uL (3.93-5.22); RDW-SD 46.5 fL; WBC 10.12 10^3/uL (4.4-10.8)
[2024-07-06 07:21] LABS: ALT 25 U/L (14-59); AST 16 U/L (15-37); Albumin 3.1 g/dL (3.4-5.0); Alkaline Phosphatase 73 U/L (46-116); Anion Gap 3.7 mmol/L (3-11); BUN 25 mg/dL (7-18); Bilirubin, Total 0.2 mg/dL (0.2-1.0); CO2 36.3 mmol/L (21.0-32.0); CREATININE 0.6 mg/dL (0.55-1.02); Calcium 9.4 mg/dL (8.5-10.1); Chloride 106 mmol/L (98-107); Estimated GFR 92.39 (mL/min/1.73m2); Glucose 93 mg/dL (74-106); Sodium 146 mmol/L (136-145); Total Protein 5.6 g/dL (6.4-8.2)
[2024-07-06] MEDS: Enoxaparin 30 MG/0.3 ML SYR SC (07:35)
[2024-07-06] MEDS: predniSONE 20 MG TAB 40 MG PO (07:36)
[2024-07-06] MEDS: Omeprazole 20 MG CAPCR PO (07:37)
[2024-07-06] MEDS: levoFLOXacin 500 MG, levoFLOXacin 250 MG 750 MG PO (07:37)
[2024-07-06] MEDS: Atorvastatin 20 MG TAB PO (07:38)
[2024-07-06] MEDS: guaiFENesin 600 MG TABCR PO ×2 (07:38→19:39)
[2024-07-06] MEDS: dilTIAZem CD 120 MG CAPCR PO (07:38)
[2024-07-06] MEDS: Normal Saline Flush 10 ML SYR IVP ×3 (07:38→20:02)
[2024-07-06] MEDS: Budesonide/Formoterol 80/4.5 6.9 GM 60 PUFF INH IH ×2 (08:14→19:40)
[2024-07-06] MEDS: Tiotropium Bromide-Respimat 10 PUFF INH 2 PUFF IH (08:14)
[2024-07-06] MEDS: Albuterol 2.5 MG/3 ML INH SOLN VIAL IH (08:45)
--- NOTE | 2024-07-06 09:09 | PDOC.CMIN ---
Date of service: 07/06/24 Time of Service: 09:09 Care Management Initial Assmt Initial Assessment Reason for Hospitalization: COPD exacerbation, hypoxic resp failure, sepsis Functional Status/Living Situation Patient Presentation: Patricia was sitting up in bed when CM met with her. She was pleasant and engaged well in conversation. Her son, Osvaldo, was in the room, who was also pleasant. She stated that she is not feeling well today, due to her work of breathing and shortness of breath. She reported that she lives with her son and daughter in law in [place], which is a recent move, after a hospitalization. She was living on her own in [place], which she reported was isolating. She stated that she has CFC, and her cyanide case hardener is Sowmya, who works out of the [place] office; she is supposed to be reassigned to the [facility] office, but has not connected with them yet. She reported that she has caregivers through [facility] [facility], but they are not able to provide her with all of the hours she has been approved for. She is wondering if her family (daughter in law) can be paid for providing any care, and she is also interested in obtaining a lift chair/recliner. CM will place a [facility] referral for her to be connected with a local cyanide case hardener, and to address these community needs. Patricia will be evaluated by PT, per report, and may benefit from new PT, OT upon discharge. CM will continue to follow. Town of Residence: [place] Resides with: Child Significant Other/Family: Local Caregiver/Guardian: Osvaldo and his provide care and support at their home. Natural Supports: Patricia has three children, and lives with her son, Osvaldo, and his . Employment Status: Retired Instrumental Activities of Daily Living (ADLs): Independent Medications Medication Management: No Issues/Barriers identified Physical Functioning/Mobility Assistive Device: O2 through [facility] [facility] [employer] Advance Directives Advance Directives: Do you have an Advance Directive: N 04/15/24 15:04 AD On File at [facility]: N 04/15/24 12:20 Date Asked 07/05/24 07/05/24 09:14 AD Date Reviewed COLST On File at [facility] COLST Date Scanned Code Status Resuscitation Status Full Code Insurance Coverage/Financial Issues Insurance: [facility] Care Team Visit Care Team Role Provider Type Mary Jo APRN MD [facility] STAFF PHYSICIAN Mechelle Sprague Primary Care Provider ADV PRACTICE REGISTERED NURSE Shree Randall MD Emergency Provider [facility] STAFF PHYSICIAN Quinn García MD Admit Provider [facility] STAFF PHYSICIAN Attending Provider Discharge Potential Discharge Needs: PCP F/U Appt Anticipated Barriers to Discharge: None Identified Patient/Family Education Needs: Review discharge instructions, discuss Ask Me Three Transportation: Private vehicle Plan: Anticipate Patricia will return home once medically cleared. She may benefit from new PT, OT. Her son will drive her home via private vehicle. She will follow up with her PCP and discharge plan of care. CM will continue to follow. Social Determinants of Health Screening Social Determinants of Health last assessed: 07/06/24 Will the Patient Participate in the Screening?: Yes Do you worry about having a steady place to live?: no Problems where you live: no known problems In the past 12 months, have you had to go without electric, gas, oil or water in your home?: no Have you or anyone in your house had to go without enough food to eat?: no Has lack of transportation kept you from medical appointments or from doing things needed for daily living?: no Has anyone in your life made you feel unsafe or unsupported?: no How hard is it for you to pay for the very basics like food, housing, medical care, and heating? Would you say it is:: Not hard at all Do you want help finding or keeping work or a job?: I do not need or want help If for any reason you need help with day-to-day activities such as bathing, preparing meals, shopping, managing finances, etc., do you get the help you need?: I get all the help I need How often do you feel lonely or isolated from those around you?: Never Do you speak a language other than [place] at home?: No Does the patient want assistance with any of the above?: No PFSH All Active Problems (Updated 07/06/24 @ 00:00 by RYAN CID) Sepsis (Acute) On deep vein thrombosis (DVT) prophylaxis (Acute) Hypertension (Chronic) Respiratory failure (Acute) Acute bronchitis with chronic obstructive pulmonary disease (COPD) (Acute) COPD exacerbation (Acute) Pleural effusion (Acute) Hypoxic respiratory failure (Acute) COPD (chronic obstructive pulmonary disease) (Chronic) Tear film insufficiency (Acute) Palpitations (Acute) Osteoporosis (Chronic) Nicotine dependence (Acute) Hyperlipidemia (Acute) Hearing loss (Acute) Fluid in endometrial cavity (Acute) Exposure to hepatitis B (Acute) COPD, severe (Acute) Closed fracture of tarsal and metatarsal bones (Acute) Closed fracture of left wrist (Acute) Allergic rhinitis (Acute) Adhesive capsulitis of shoulder (Acute) Acute [id number] elevation myocardial infarction (Acute) Abnormal weight loss (Acute) Abnormal findings on diagnostic imaging of liver and biliary tract (Acute) Medical History H/O mammogram 08/30/11 H/O echocardiogram 07/02/21 Urinary tract infectious disease Genitourinary symptoms Chronic obstructive pulmonary disease with (acute) lower respiratory infection Surgical History H/O tubal ligation 1974 H/O repair of rotator cuff bilateral shoulders,04/17/03 History of colonoscopy 02/04/19 Family History Mother Cancer Diabetes Hypertension Father Myocardial infarction Social History Smoking/Tobacco Use Status: Current-Occasional Tobacco Type: cigarettes Years smoked: 50 Tobacco: How many years used: 60 Smoking risk assessment performed?: Yes Alcohol Intake: former Drug use: Never Substance use type: does not use Housing: house Do you feel safe at home: Yes Do you feel safe in your relationship?: Yes Additional Social history: Current tobacco user. Use:4-5 cigarettes per day. Started at age 17.
[2024-07-06] MEDS: LORazepam 0.5 MG TAB PO ×2 (11:01→23:29)
--- NOTE | 2024-07-06 14:06 | PGE_ITS ---
Date of Service Date of service: 07/06/24 Time of Service: 14:06 Assessment and Plan Assessment and plan (1) Sepsis: Start date: 07/06/24 Start time: 11:00 Status: Acute Assessment and plan: Criteria met with wbc > 12, rr> 20 , HR > 90 with presumable respiratory source And as below (2) Hypoxic respiratory failure: Start date: 07/06/24 Start time: 11:00 Status: Acute Assessment and plan: Low saturation on ambulation, sat >88 at rest and remains >92% on 1 liter of O2 while having long conversation, reporting no improvement in breathing but WOB decreased and RR <= 20 O2 requirement is minimal - Hypercapinc on inital VBG- BIPAP in ED - PCO2 normal on repeat RT consult - Needs reassessment of home O2 needs prior to D/C and ongoing education (3) COPD exacerbation: Status: Acute Assessment and plan: End stage- still attempting to get records from [facility] Seen in pulmonology at [facility]- please read notes Was d/c from the ED on Levaquin and prednisone on 07/03 Ongoing Levaquin with prednisone 60mg daily- might need a long taper Ongoing doxycycline ( Was on chronic Azithromycin MWF- resume on d/c ?) Continue Duonebs, mucinex, acapella Ongoing home ICS/ LABA and spiriva Procal negative for high suspicion of bacterial infection ,but exacerbation might be d/t other viruses than the ones screened by our standard testing as the patient mentioned that at home people have had runny nose/ sniffles (4) Hypertension: Status: Chronic Assessment and plan: continue home medicine regimen (5) On deep vein thrombosis (DVT) prophylaxis: Status: Acute Assessment and plan: On lovenox Discussed with Dr. García Subjective Subjective Patient reports: no new complaints, tolerating liquids well, tolerating a regular diet, voiding w/o difficulty, flatus and shortness of breath; denies no bowel movement, nausea, vomiting or fever Interval history since last seen: reports getting medicine to calm her when admitted to hospitals but nothing at home Exam Narrative Exam Narrative: Constitutional The patient is sitting in bed comfortable , O2 at 1l/min sat 92-93% speaks in long sentences less WOB than on admission Appears older than stated age , restless/ anxious Neuro:alert and oriented to self, person, place, time and situation. non- focal Chest:Chest is symmetrical and > AP diameter Resp: Coarse breath sounds, mostly upper airway and upper lungs exp. wheezing, wet cough on deep breathing- unable to expectorate Cardio: regular rhythm, S1, S2, no murmur GI: Abdomen is not distended, soft and non tender, bowel sounds are present : Negative Costovertebral angle tenderness, no bladder distension Back/spine/Pelvis: No back tenderness, normal alignment Integumentary: No skin lesions or rash to exposed skin Extremities: strength 5/5 to bilateral lower and upper extremities Psych: RASS 0 to 1 , anxious Objective Last Vital Signs Temp 36.5 C 07/06/24 10:36 Pulse 97 H 07/06/24 10:36 Resp 20 07/06/24 10:36 BP 159/60 H 07/06/24 10:36 Pulse Ox 93 07/06/24 11:35 Laboratory Results - last 24 hr 07/05/24 07/05/24 07/06/24 18:00 18:08 06:26 WBC 10.12 RBC 3.44 L Hgb 9.8 L D Hct 31.2 L MCV 91 MCH 28.5 MCHC 31.4 L RDW 14.0 Plt Count 275 MPV 9.6 Immature Gran % 0.4 Neutrophils % 73.3 Lymphocytes % 15.9 Monocytes % 9.6 Eosinophils % 0.7 Basophils % 0.1 Nucleated RBC % 0.0 Absolute Neutrophils 7.42 H Absolute Lymphocytes 1.61 Absolute Monocytes 0.97 H Absolute Eosinophils 0.07 Absolute Basophils 0.01 VBG pH 7.46 H VBG pCO2 46 VBG pO2 80 VBG HCO3 33 H VBG Total CO2 30 H VBG O2 Saturation 97 VBG Base Excess 9 H Sodium 146 H Potassium 4.0 Chloride 106 Carbon Dioxide 36.3 H Anion Gap 3.7 BUN 25 H Creatinine 0.6 Est GFR (CKD-EPI 2020) 92.39 Glucose 93 Calcium 9.4 Total Bilirubin 0.2 AST 16 ALT 25 Alkaline Phosphatase 73 Total Protein 5.6 L Albumin 3.1 L Procalcitonin < 0.10 Time Spent with Patient Time Spent with Patient: >50 minutes Time was spent: preparing to see the patient(eg.review tests), obtaining and/or reviewing separately otained hiistory, ordering medications,tests, procedures, referring, communicating with other health health care facility administrator, indepentently interpreting results, counseling the patient and care coordination
[2024-07-06] MEDS: Docusate Sodium 100 MG CAP PO (19:39)
[2024-07-06] MEDS: Melatonin 3 MG TAB 9 MG PO (19:39)
[2024-07-07] MEDS: DOXYCYCLINE 100 MG in Normal Saline 100 ML IVPB (05:56)
[2024-07-07] MEDS: Normal Saline Flush 10 ML SYR IVP ×2 (05:57→20:29)
[2024-07-07 06:00] VITALS: BP 151/66; PULSE 85; RESP 20; TEMP 36; O2SAT 93
[2024-07-07 08:25] VITALS: BP 126/66; PULSE 102; RESP 20; TEMP 36.5; O2SAT 91
[2024-07-07] MEDS: Enoxaparin 30 MG/0.3 ML SYR SC (08:35)
[2024-07-07] MEDS: Docusate Sodium 100 MG CAP PO ×2 (08:35→20:28)
[2024-07-07] MEDS: Omeprazole 20 MG CAPCR PO (08:35)
[2024-07-07] MEDS: dilTIAZem CD 120 MG CAPCR PO (08:35)
[2024-07-07] MEDS: guaiFENesin 600 MG TABCR PO ×2 (08:35→20:28)
[2024-07-07] MEDS: predniSONE 20 MG TAB 40 MG PO (08:35)
[2024-07-07] MEDS: Atorvastatin 20 MG TAB PO (08:36)
[2024-07-07] MEDS: Budesonide/Formoterol 80/4.5 6.9 GM 60 PUFF INH IH ×2 (09:17→20:45)
[2024-07-07 09:18] VITALS: O2SAT 93
[2024-07-07] MEDS: Tiotropium Bromide-Respimat 10 PUFF INH 2 PUFF IH (09:18)
[2024-07-07 11:16] LABS: Abs Immature Grans 0.08 10^3/uL (0.0-0.06); Absolute Basophil Count 0.01 10^3/uL (0.0-0.2); Absolute Eosinophil Count 0.14 10^3/uL (0.0-0.7); Absolute Lymphocyte Count 0.94 10^3/uL (1.2-3.4); Absolute Monocyte Count 0.55 10^3/uL (0.1-0.8); Absolute Neutrophil Count 8.52 10^3/uL (1.2-6.7); Basophils % 0.1 %; Eosinophils % 1.4 %; HCT 33.4 % (36.0-46.0); HGB 10.6 g/dL (11.2-15.7); Immature Grans % 0.8 %; Lymphocytes % 9.2 %; MCHC 31.7 % (32.0-36.0); MCV 92 fL (80-95); MPV 9.8 fL (8.0-11.0); Monocytes % 5.4 %; Neutrophils % 83.1 %; Platelet Count 308 10^3/uL (130-400); RBC 3.65 10^6/uL (3.93-5.22); RDW 14.2 % (11.7-14.6); RDW-SD 47.1 fL; WBC 10.24 10^3/uL (4.4-10.8)
--- NOTE | 2024-07-07 13:44 | PGE_ITS ---
Date of Service Date of service: 07/07/24 Time of Service: 13:44 Assessment and Plan Assessment and plan (1) Sepsis: Status: Resolved Assessment and plan: Criteria met with wbc > 12, rr> 20 , HR > 90 with presumable respiratory source hemodynamically stable. one blood culture tube positive for gram + cocci, likely contaminant. repeat cultures pending (2) Hypoxic respiratory failure: Status: Chronic Assessment and plan: followed by pulmonary here has follow up appointment on July 23 on home O2, 2 liters at rest, 3-4 Liters with activity. continue home inhalers. treating copd exacerbation, still smoking some at home, encouraged cessation. (3) COPD exacerbation: Status: Acute Assessment and plan: follows pulmonology at [facility]-with follow up appointment coming up in the beginning of July prednisone had been changed to 40mg daily from 50 mg but feels worse today- likely need long taper at discharge, will increase back up to 50 mg daily with slow taper at discharge. has been on levaquin 5/5 and doxycycline day 2 (on chronic Azithromycin MWF, which will resume after acute antibiotics complete) Continue Duonebs, mucinex, acapella Ongoing home ICS/ LABA and spiriva Procal negative (4) Hypertension: Status: Chronic Assessment and plan: continue diltiazem and routine monitoring blood pressure has been elevated 120-160's systolic defer medication changes to outpatient team after recovered from acute illness (5) Anemia: Status: Chronic Assessment and plan: normocytic iron/tibc, ferritin and retic count pending initial drop likely dilution (6) On deep vein thrombosis (DVT) prophylaxis: Status: Acute Assessment and plan: continue enoxaparin (7) Discharge planning issues: Status: Acute Assessment and plan: PT consulted for discharge planning anticipate rehab referral prior to discharge home case management following Subjective Subjective Patient reports: voiding w/o difficulty, bowel movement, shortness of breath and afebrile Interval history since last seen: continues to have shortness of breath with minimal exertion, raising more sputum, drinking more than eating but no abd pain or nausea, gets fatigued with solids. no chest pain Exam Narrative Exam Narrative: frail, chronically ill female of stated age. thin, awake alert oriented, no focal deficits. head atraumatic normocephalic, normal facial appearance. oral mucosa moist, no exudate. respirations even and labored. expiratory wheeze throughout, bases diminished. heart regular rate and rhythm, extremity with no peripheral edema, strength equal bilaterally, no rashes or lesion. Objective Last Vital Signs Temp 36.5 C 07/07/24 08:25 Pulse 102 H 07/07/24 08:25 Resp 20 07/07/24 08:25 BP 126/66 07/07/24 08:25 Pulse Ox 93 07/07/24 09:18 Laboratory Results - last 24 hr 07/07/24 11:08 WBC 10.24 RBC 3.65 L Hgb 10.6 L Hct 33.4 L MCV 92 MCH 29.0 MCHC 31.7 L RDW 14.2 Plt Count 308 MPV 9.8 Immature Gran % 0.8 Neutrophils % 83.1 Lymphocytes % 9.2 Monocytes % 5.4 Eosinophils % 1.4 Basophils % 0.1 Nucleated RBC % 0.0 Absolute Neutrophils 8.52 H Absolute Lymphocytes 0.94 L Absolute Monocytes 0.55 Absolute Eosinophils 0.14 Absolute Basophils 0.01 Time Spent with Patient Time Spent with Patient: 35-49 minutes Time was spent: preparing to see the patient(eg.review tests), obtaining and/or reviewing separately otained hiistory, ordering medications,tests, procedures, referring, communicating with other health complex care nurse practitioner, indepentently interpreting results and counseling the patient
[2024-07-07 13:48] VITALS: BP 163/73; PULSE 107; RESP 20; TEMP 37.2; O2SAT 91
[2024-07-07 14:52] VITALS: BP 146/64; PULSE 101; RESP 20; TEMP 37.2; O2SAT 92
[2024-07-07 20:01] VITALS: BP 138/94; PULSE 93; RESP 20; TEMP 36.1; O2SAT 95
[2024-07-07] MEDS: Doxycycline Hyclate 100 MG CAP PO (20:28)
[2024-07-07] MEDS: Melatonin 3 MG TAB 9 MG PO (20:28)
[2024-07-08] VITALS (7 sets, daily range): BP systolic 141–166; BP diastolic 50–71; PULSE 78–97; RESP 14–20; TEMP 36.3–36.9; O2SAT 90–98
[2024-07-08] MEDS: Omeprazole 20 MG CAPCR PO (06:25)
[2024-07-08 06:52] LABS: Abs Immature Grans 0.07 10^3/uL (0.0-0.06); Absolute Basophil Count 0.01 10^3/uL (0.0-0.2); Absolute Eosinophil Count 0.25 10^3/uL (0.0-0.7); Absolute Lymphocyte Count 2.27 10^3/uL (1.2-3.4); Absolute Monocyte Count 0.97 10^3/uL (0.1-0.8); Absolute Neutrophil Count 6.17 10^3/uL (1.2-6.7); Basophils % 0.1 %; Eosinophils % 2.6 %; HCT 31.3 % (36.0-46.0); HGB 10.3 g/dL (11.2-15.7); Immature Grans % 0.7 %; Lymphocytes % 23.3 %; MCH 29.2 pg (27.0-33.0); MCHC 32.9 % (32.0-36.0); MCV 89 fL (80-95); MPV 10.2 fL (8.0-11.0); Neutrophils % 63.3 %; Platelet Count 299 10^3/uL (130-400); RBC 3.53 10^6/uL (3.93-5.22); RDW 14.2 % (11.7-14.6); RDW-SD 45.5 fL; Reticulocyte 2.3 % (0.5-2.4); WBC 9.74 10^3/uL (4.4-10.8)
[2024-07-08 07:30] LABS: Iron 25 ug/dL (50-170); Total Iron Binding Capacity 284 ug/dL (250-450); Transferrin Sat 9 % (15-50)
[2024-07-08 07:35] LABS: ALT 21 U/L (14-59); AST 15 U/L (15-37); Albumin 3.1 g/dL (3.4-5.0); Alkaline Phosphatase 75 U/L (46-116); Anion Gap 5.3 mmol/L (3-11); BUN 22 mg/dL (7-18); Bilirubin, Total 0.2 mg/dL (0.2-1.0); CO2 33.7 mmol/L (21.0-32.0); CREATININE 0.5 mg/dL (0.55-1.02); Calcium 9.1 mg/dL (8.5-10.1); Chloride 106 mmol/L (98-107); Estimated GFR 96.54 (mL/min/1.73m2); Ferritin 19 ng/mL (8-252); Glucose 81 mg/dL (74-106); Potassium 3.9 mmol/L (3.5-5.1); Sodium 145 mmol/L (136-145); Total Protein 5.7 g/dL (6.4-8.2)
[2024-07-08] MEDS: Normal Saline Flush 10 ML SYR IVP ×2 (08:06→19:37)
[2024-07-08] MEDS: dilTIAZem CD 120 MG CAPCR PO (08:07)
[2024-07-08] MEDS: Enoxaparin 30 MG/0.3 ML SYR SC (08:07)
[2024-07-08] MEDS: guaiFENesin 600 MG TABCR PO ×2 (08:07→19:36)
[2024-07-08] MEDS: predniSONE 20 MG TAB 50 MG PO (08:08)
[2024-07-08] MEDS: Docusate Sodium 100 MG CAP PO ×2 (08:08→19:36)
[2024-07-08] MEDS: Atorvastatin 20 MG TAB PO (08:08)
[2024-07-08] MEDS: Doxycycline Hyclate 100 MG CAP PO ×2 (08:08→19:35)
[2024-07-08] MEDS: Tiotropium Bromide-Respimat 10 PUFF INH 2 PUFF IH (08:19)
[2024-07-08] MEDS: Budesonide/Formoterol 80/4.5 6.9 GM 60 PUFF INH IH ×2 (08:19→19:30)
--- NOTE | 2024-07-08 08:41 | PDOC.CMPRO ---
Date of service: 07/08/24 Time of Service: 08:42 Care Management Progress Note Progress Note Text Progress Note Text: Patricia was sitting up in bed when CM met with her. She was open and friendly and very talkative. Patricia informed CM that she needs help with a lot of things in the community. She has CFC with caregivers through [facility]. She also has a correctional casework specialist through the [place] office of the [facility] named Mary Mauricio. Patricia' home is in [place], however she has been staying with her son Theo and his family in [place]. She stated that she plans to sell her house and remain with her son. CM contacted the [facility] office to inform them of the move and asked if she would be reassigned to a new correctional casework specialist in [facility]. Unfortunately Mary was not available so CM left a message. Patricia identified that she would like a lift felix and an over bed table. She stated that she has $1000/year available thorough [employer] for special needs. Patricia also shared that she has been using pullups and heard that they might be available for free through the mail. She would also like a prescription for Ensure as she has been told Medicaid would pay for it. CM contacted her pharmacy who confirmed that it may be possible and that her PCP would need to send a prescription and that the pharmacy would need to begin the prior auth process. CM contacted [facility] where Patricia' PCP practices but the [facility] was unavailable and CM was unable to leave a message. A referral was sent to [facility] over the weekend. CM will follow up with [facility] tomorrow. Discharge Potential Discharge Needs: PCP F/U Appt Anticipated Barriers to Discharge: None Identified Patient/Family Education Needs: Review discharge instructions, discuss Ask Me Three Transportation: Private vehicle Plan: Anticipate Patricia will return home once medically cleared. She may benefit from new PT, OT. Her son will drive her home via private vehicle. She will follow up with her PCP and discharge plan of care. CM will continue to follow. Social Determinants of Health Screening Social Determinants of Health last assessed: 07/08/24 Will the Patient Participate in the Screening?: Yes Do you worry about having a steady place to live?: no Problems where you live: no known problems In the past 12 months, have you had to go without electric, gas, oil or water in your home?: no Have you or anyone in your house had to go without enough food to eat?: no Has lack of transportation kept you from medical appointments or from doing things needed for daily living?: no Has anyone in your life made you feel unsafe or unsupported?: no How hard is it for you to pay for the very basics like food, housing, medical care, and heating? Would you say it is:: Not hard at all Do you want help finding or keeping work or a job?: I do not need or want help If for any reason you need help with day-to-day activities such as bathing, preparing meals, shopping, managing finances, etc., do you get the help you need?: I get all the help I need How often do you feel lonely or isolated from those around you?: Never Do you speak a language other than [place] at home?: No Does the patient want assistance with any of the above?: No
--- NOTE | 2024-07-08 09:36 | PT.INIE ---
PT Notes Visit Reasons: COPD exacerbation,hypoxix resp failure,sepsis Physical Therapy Initial Evaluation Date: 07/08/2024 Referring Doctor: Gabriela Lama HUMAN RESOURCES RECRUITER PT Orders: PT CONSULT: PT evaluation and treat Precautions: Monitor O2 sats keep O2 88 to 92% Patient Profile/Admitting Diagnosis: Patient is 79-year-old female presented to the emergency room initially on 319 with increased shortness of breath patient was then discharged home with antibiotics and prednisone however returned on 321 with worsening symptoms requiring increased supplementary oxygen. Chest x-ray negative for pneumonia labs positive for leukocytosis patient required intermittent BiPAP in the emergency room. Patient diagnosed with sepsis and CO2 retainer therefore O2 sats to remain 88 to 92%. [facility] and PT consult placed PMHX: Sepsis (Acute) On deep vein thrombosis (DVT) prophylaxis (Acute) Hypertension (Chronic) Respiratory failure (Acute) Acute bronchitis with chronic obstructive pulmonary disease (COPD) (Acute) COPD exacerbation (Acute) Compression fracture of thoracic vertebra (Acute) Pleural effusion (Acute) Hypoxic respiratory failure (Acute) COPD (chronic obstructive pulmonary disease) (Chronic) Tear film insufficiency (Acute) Palpitations (Acute) Osteoporosis (Chronic) Nicotine dependence (Acute) Hyperlipidemia (Acute) Hearing loss (Acute) Fluid in endometrial cavity (Acute) Exposure to hepatitis B (Acute) COPD, severe (Acute) Closed fracture of tarsal and metatarsal bones (Acute) Closed fracture of left wrist (Acute) Allergic rhinitis (Acute) Adhesive capsulitis of shoulder (Acute) Acute gmt-[id number]-[id number] elevation myocardial infarction (Acute) Abnormal weight loss (Acute) Abnormal findings on diagnostic imaging of liver and biliary tract (Acute) Medical History H/O mammogram 08/30/11H/O echocardiogram 07/02/21Urinary tract infectious disease Genitourinary symptoms Chronic obstructive pulmonary disease with (acute) lower respiratory infection Surgical History H/O tubal ligation 1974H/O repair of rotator cuff bilateral shoulders,04/17/03History of colonoscopy 02/04/19 patient diagnosed with sepsis Social History/Home Situation: Patient resides in her son's home in [place] is 2 steps with rail to enter. Patient reports she stays in her room and has home health aide daily from 9 to 1 PM. Patient reports having pulsed [employer] concentrator at home which she does not like as she is a mouth breather and this is activated via breath through nose. Independent ambulation without device Equipment Owned/DME: [employer] concentrator for outside of home, standard concentrator inside. Subjective: Patient reports multiple dogs and cat within home she is concerned that this might be a trigger to some of her respiratory difficulties since moving into her son's home. She reports she is going to get an air purifier and will request home health aide to back you more frequently in her room. Objective: [] General Observation: Thin female semireclined in bed with nasal cannula on however oxygen is turned off. Agreeable to participate Mental Status: Alert and oriented x 4 cooperative motivated Pain: Denies Vital signs: At rest on room air 96% with ambulation on room air dropped to 86% recovered to 90% within 1 minute and pursed lip breathing ROM: [] BUE within normal limits BLE within normal limits Strength: [] BUE 4/5 BLE 4/5 Sensation: Intact Bed Mobility/Transfers: [] Supine to sit independent Sit to stand supervision Stand to sit supervision Bed to chair [supervision Gait: Ambulates with supervision without assistive device 150 feet with 1 standing rest and cues for pursed lip breathing. Patient demonstrates intermittent crossover step however did not need physical assistance to regain. Patient required cues as well for reducing speed of ambulation for pacing Stairs: Supervision 2 steps x 2 trials with 2 rail cues for pacing to maintain sats greater than 88% Balance: [] Static Sitting: Normal Dynamic Sitting: Normal Static Standing: Good Dynamic Standing: Good minus Special Tests: [] Mobility Limitations Standardized Measure [] [facility] AM-PAC 6 clicks Basic Mobility Inpatient Short Form: [] Raw Score: 23 CMS Score: 11.20% Informed Consent/Education: Patient instructed in purpose of PT consult. Assessment: Patient is 79-year-old female presenting with poor pacing strategies/energy conservation techniques to maintain sats greater than 88 to 92% on room air during functional tasks. Patient presents with clinical signs and symptoms consistent with current/admitting diagnoses that have resulted to mobility limitations, gait instability, generalized weakness, and impairment of motor control as demonstrated by the following impairment level findings: 1. Impaired functional activity tolerance 2. Impaired pacing/energy conservation techniques 3. Diminished balance reactions and standing 4. Intermittent use of supplemental oxygen to maintain sats 88 to 92% Impairments are contributing to the following functional limitations: 1. Inability to safely ambulate without assistive device 2. Increase completion time for mobility ADL performance 3. Increased fall risk Patient is assessed as a moderate complexity based on the following: History: 79-year-old female with impairment level findings, functional limitations, and past medical history as indicated above Examination: Demonstrable impairment in strength, balance, and mobility level with underlying impairments and functional limitations as documented above Presentation: Evolving/stable Decision Making: Moderate Goals: 1. Perform ambulation without assistive device independently greater than 200 feet maintaining sats 88 to 92% with standing rest and pursed lip breathing. 2. 2 steps with rail supervision maintaining sats 88 to 92% with pursed lip breathing 3. Demonstrate independent use of pursed lip breathing and pacing strategies during functional tasks Plan of Care/Treatment Plan: 1-2x/day, 7 days/week x 1 week. Plan of care has been reviewed with the GIS PROFESSOR providing the service under Physical Therapy direction. Initiate Physical Therapy intervention for strengthening, bed mobility, transfers, gait, stairs, balance training, use of assistive device. DISCHARGE RECOMMENDATIONS: Home health PT and better breather's program TREATMENT CODE/TIME: 57155, 92900/9 10?10 00 AM Thank you for the opportunity to participate in the care of this patient. [facility]
--- NOTE | 2024-07-08 18:06 | PGE_ITS ---
Date of Service Date of service: 07/08/24 Time of Service: 18:06 Assessment and Plan Assessment and plan (1) Sepsis: Status: Resolved Assessment and plan: Criteria met with wbc > 12, rr> 20 , HR > 90 with presumable respiratory source hemodynamically stable. one blood culture tube positive for gram + cocci, likely contaminant, repeat cultures drawn today and pending (2) Hypoxic respiratory failure: Status: Chronic Assessment and plan: followed by pulmonary here has follow up appointment on July 23 on home O2, 2 liters at rest, 3-4 Liters with activity. continue home inhalers. treating copd exacerbation, still smoking some at home, encouraged cessation. (3) COPD exacerbation: Status: Acute Assessment and plan: follows pulmonology at [facility]-with follow up appointment coming up in the beginning of July prednisone had been changed to 40mg daily from 50 mg but feels worse today- likely need long taper at discharge, will increase back up to 50 mg daily with slow taper at discharge. has been on levaquin 5/5 and doxycycline day 2 (on chronic Azithromycin MWF, which will resume after acute antibiotics complete) Continue Duonebs, mucinex, acapella Ongoing home ICS/ LABA and spiriva Procal negative (4) Hypertension: Status: Chronic Assessment and plan: continue diltiazem and routine monitoring blood pressure has been elevated 120-160's systolic defer medication changes to outpatient team after recovered from acute illness (5) Anemia: Status: Chronic Assessment and plan: normocytic iron/tibc, ferritin and retic count pending initial drop likely dilution (6) On deep vein thrombosis (DVT) prophylaxis: Status: Acute Assessment and plan: continue enoxaparin (7) Discharge planning issues: Status: Acute Assessment and plan: PT consulted for discharge planning anticipate rehab referral prior to discharge home case management following Subjective Subjective Patient reports: no new complaints, feels better, pain is less, tolerating liquids well, tolerating a regular diet, bowel movement (large formed this am) and afebrile; denies diarrhea or nausea Interval history since last seen: Patient states she feels like she has gas, no chest pain, no nausea. Exam Narrative Exam Narrative: General Appearance: Increased work of breathing with tachypnea. Thin. Speaking in complete sentences. Vital signs: Hypertensive 165/65, tachypneic with respiratory rate of 22, saturating 90% on 2 L nasal cannula. HEENT: Within normal limits. Respiratory: Diminished breath sounds bilaterally with expiratory wheezing. Tachypnea. Intermittent cough. Mild respiratory distress. Cardiovascular: Heart regular rate and rhythm, no murmurs. Extremities: No leg swelling. No calf tenderness. Skin: Warm and dry, no rash. Neurological: Normal. Objective Last Vital Signs Temp 36.6 C 07/08/24 15:19 Pulse 97 H 07/08/24 15:19 Resp 17 07/08/24 15:19 BP 166/65 H 07/08/24 15:19 Pulse Ox 90 L 07/08/24 15:19 Laboratory Results - last 24 hr 07/08/24 07/08/24 06:23 06:23 WBC 9.74 RBC 3.53 L Hgb 10.3 L Hct 31.3 L MCV 89 MCH 29.2 MCHC 32.9 RDW 14.2 Plt Count 299 MPV 10.2 Reticulocyte % (Auto) 2.3 Cancelled Immature Gran % 0.7 Neutrophils % 63.3 Lymphocytes % 23.3 Monocytes % 10.0 Eosinophils % 2.6 Basophils % 0.1 Nucleated RBC % 0.0 Absolute Neutrophils 6.17 Absolute Lymphocytes 2.27 Absolute Monocytes 0.97 H Absolute Eosinophils 0.25 Absolute Basophils 0.01 Sodium 145 Potassium 3.9 Chloride 106 Carbon Dioxide 33.7 H Anion Gap 5.3 BUN 22 H Creatinine 0.5 L Est GFR (CKD-EPI 2020) 96.54 Glucose 81 Calcium 9.1 Iron 25 L TIBC 284 Transferrin % Sat 9 L Ferritin 19 Total Bilirubin 0.2 AST 15 ALT 21 Alkaline Phosphatase 75 Total Protein 5.7 L Albumin 3.1 L Time Spent with Patient Time Spent with Patient: 35-49 minutes Time was spent: preparing to see the patient(eg.review tests), ordering medications,tests, procedures, referring, communicating with other health foster care case manager, indepentently interpreting results, counseling the patient and care coordination
[2024-07-08] MEDS: Simethicone 80 MG CHEW 160 MG PO (18:27)
[2024-07-08] MEDS: Melatonin 3 MG TAB 9 MG PO (19:35)
[2024-07-09 01:05] VITALS: BP 168/77; PULSE 75; RESP 15; TEMP 36.2; O2SAT 90
[2024-07-09] MEDS: Omeprazole 20 MG CAPCR PO (06:50)
[2024-07-09 07:13] LABS: Abs Immature Grans 0.08 10^3/uL (0.0-0.06); Absolute Basophil Count 0.03 10^3/uL (0.0-0.2); Absolute Lymphocyte Count 2.72 10^3/uL (1.2-3.4); Basophils % 0.2 %; Eosinophils % 2.2 %; HCT 34.5 % (36.0-46.0); HGB 11.1 g/dL (11.2-15.7); Immature Grans % 0.6 %; Lymphocytes % 21.7 %; MCH 28.8 pg (27.0-33.0); MCHC 32.2 % (32.0-36.0); MCV 90 fL (80-95); MPV 9.8 fL (8.0-11.0); Monocytes % 10.8 %; Neutrophils % 64.5 %; Platelet Count 347 10^3/uL (130-400); RBC 3.85 10^6/uL (3.93-5.22); RDW 14.2 % (11.7-14.6); RDW-SD 45.4 fL; WBC 12.54 10^3/uL (4.4-10.8)
[2024-07-09 07:14] LABS: Absolute Eosinophil Count 0.28 10^3/uL (0.0-0.7); Absolute Monocyte Count 1.35 10^3/uL (0.1-0.8); Absolute Neutrophil Count 8.09 10^3/uL (1.2-6.7)
[2024-07-09 07:27] LABS: Anion Gap 5.5 mmol/L (3-11); BUN 22 mg/dL (7-18); CO2 32.5 mmol/L (21.0-32.0); CREATININE 0.5 mg/dL (0.55-1.02); Calcium 10.3 mg/dL (8.5-10.1); Chloride 104 mmol/L (98-107); Estimated GFR 96.54 (mL/min/1.73m2); Glucose 102 mg/dL (74-106); Potassium 3.8 mmol/L (3.5-5.1); Sodium 142 mmol/L (136-145)
[2024-07-09 07:45] VITALS: BP 150/68; PULSE 71; RESP 12; TEMP 36.9; O2SAT 92
[2024-07-09] MEDS: Tiotropium Bromide-Respimat 10 PUFF INH 2 PUFF IH (07:57)
[2024-07-09] MEDS: Budesonide/Formoterol 80/4.5 6.9 GM 60 PUFF INH IH (07:58)
[2024-07-09] MEDS: Normal Saline Flush 10 ML SYR IVP (08:02)
[2024-07-09] MEDS: Enoxaparin 30 MG/0.3 ML SYR SC (08:02)
[2024-07-09] MEDS: guaiFENesin 600 MG TABCR PO (08:03)
[2024-07-09] MEDS: Atorvastatin 20 MG TAB PO (08:03)
[2024-07-09] MEDS: predniSONE 20 MG TAB 50 MG PO (08:03)
[2024-07-09] MEDS: Docusate Sodium 100 MG CAP PO (08:03)
[2024-07-09] MEDS: dilTIAZem CD 120 MG CAPCR PO (08:03)
[2024-07-09] MEDS: Doxycycline Hyclate 100 MG CAP PO (08:04)
--- NOTE | 2024-07-09 09:06 | PDOC.CMPRO ---
Date of service: 07/09/24 Time of Service: 09:06 Care Management Progress Note Discharge Potential Discharge Needs: PCP F/U Appt Anticipated Barriers to Discharge: None Identified Patient/Family Education Needs: Review discharge instructions, discuss Ask Me Three Transportation: Private vehicle Plan: Anticipate Patricia will return home once medically cleared. She may benefit from new PT, OT. Her son will drive her home via private vehicle. She will follow up with her PCP and discharge plan of care. CM will continue to follow. Social Determinants of Health Screening Social Determinants of Health last assessed: 07/09/24 Will the Patient Participate in the Screening?: Yes Do you worry about having a steady place to live?: no Problems where you live: no known problems In the past 12 months, have you had to go without electric, gas, oil or water in your home?: no Have you or anyone in your house had to go without enough food to eat?: no Has lack of transportation kept you from medical appointments or from doing things needed for daily living?: no Has anyone in your life made you feel unsafe or unsupported?: no How hard is it for you to pay for the very basics like food, housing, medical care, and heating? Would you say it is:: Not hard at all Do you want help finding or keeping work or a job?: I do not need or want help If for any reason you need help with day-to-day activities such as bathing, preparing meals, shopping, managing finances, etc., do you get the help you need?: I get all the help I need How often do you feel lonely or isolated from those around you?: Never Do you speak a language other than Somali at home?: No Does the patient want assistance with any of the above?: No
--- NOTE | 2024-07-09 10:54 | PTTR_ITS ---
PT Notes Visit Reasons: COPD exacerbation,hypoxix resp failure,sepsis Inpatient Physical Therapy Treatment Note [facility] Date: 07/09/24 SUBJECTIVE: Patricia reports that she is feeling much better today. Looking forward to getting up and walk. States that she is going home this afternoon. OBJECTIVE: []? PAIN: none VITALS: ?O2 sats ranged 85%-92%.(AM) 86%-90% (PM) Therapeutic Activities ([id number]): Direct one-on-one instruction in dynamic activities to improve functional performance. ? BED MOBILITY/TRANSFERS? Rolling L/R: I Supine-sit: I ? Sit-supine: I? Sit-stand: I ? Stand-sit:I ? GAIT? Assistive Device: none ? Weight bearing: FWB Assist: SBA ? Distance:?approx 260' am/ 120' pm.? Deviation: energy conservation. ? ASSESSMENT:?AM session: tolerated session well. Cues required for slower pace, PLB to conserve her energy. She did required 2 standing resting breaks x approx 15 sec each. Took a good 3 min to recover O2 sats from 85% -92%. PM session: tolerated session fairly well. She talked quite a bit more therefore decreasing O2 sats. She required one standing rest break x 15 sec. O2 sat rang ed 86%-90%. Reports being tired and going to rest. PLAN: will continue to progress functional mobility while conserving energy following PT POC. TREATMENT CODE/TIME: 15 min in am session./ 10 min in pm session ([id number]) DISCHARGE RECOMMENDATION: home with YAMILETH
[2024-07-09 11:08] VITALS: BP 167/64; PULSE 91; RESP 12; TEMP 36.7; O2SAT 90
--- NOTE | 2024-07-09 13:37 | CHAPLAIN ---
Patricia was sitting up in bed when I visited. I explained my role and offered support. Patricia said she is good and told me that she's seeing moving around the room so she knows there are spirits with her. She was not interested in further conversation.
--- NOTE | 2024-07-09 14:32 | PDOC.CMDIS ---
Date of service: 07/09/24 Time of Service: 14:32 LACE Index Scoring Tool Questions: Length of Stay (in days): 4 - 6 Was the patient admitted via the E.D.?: Yes Comorbidities: Previous M.I. and Chronic Pulmonary Disease E.D. Visits: 3 Answers: Total Score: 13 Risk of Readmission: High Risk Care Management Discharge Plan Reason for Hospitalization: COPD Exacerbation Discharge Plan: Patricia will return home with new home health services for RN and PT. Her son will drive her home via private vehicle and she will follow up with her PCP and discharge plan of care. Patient/Family Education Needs: Review discharge instructions, limitations, follow up plan and discuss Ask Me Three Services Needed at Discharge: Home Health Care Services SDOH Health Related Social Needs: No Data to Display
--- NOTE | 2024-07-09 14:48 | DSE_ITS ---
Date of service: 07/09/24 Time of Service: 14:48 DS: Diagnosis Discharge Diagnosis (1) Discharge planning issues: Status: Acute Discharge Plan Disposition Patient Disposition: Home W/Home Health Services Condition: Improving Discharge Details Reason For Visit: COPD exacerbation,hypoxic resp failure, sepsis Admit Date/Time: 07/05/24 12:58 Admit Provider: Quinn García Attending Provider: Quinn García [facility]: Diagnosis: Oxygen-dependent COPD, chronic azithromycin use, recent pneumothorax, hypoxic respiratory failure, pleural effusion, hyperlipidemia, CAD, sepsis, hypertension, and acute bronchitis, among others. Chief Complaint: Increased cough, sputum production, and worsening shortness of breath over 2 days, particularly with ambulation. History of Present Illness: The patient presented to the ED on 07/06/24 with a two-day history of worsening cough, increased sputum, and SOB. She was seen on 07/03/24 for similar symptoms and discharged with Levaquin and prednisone. At the time of admission, her oxygen saturation was 89-90%, with a heart rate of 93 and tachypnea (RR 27-29). She denied fever, chills, chest pain, gastrointestinal symptoms, or genitourinary symptoms. She reported minimal dizziness, transient headache, and night sweats. In the ED, a chest X-ray was negative for pneumonia, but leukocytosis was present. Arterial blood gas results showed a pH of 7.35, PCO2 of 62, HCO3 of 34, and PO2 of 49. BiPAP was briefly used. The patient confirmed a full code status, with her son, Theo Spencer, listed as her POA. * Sepsis: * Start Date: 07/06/24 * Criteria met: WBC > 12, RR > 20, HR > 90, presumed respiratory source. * Hypoxic Respiratory Failure: * Start Date: 07/06/24 * Persistent low oxygen saturation with improved work of breathing. * COPD Exacerbation: * Acute exacerbation, end-stage COPD. * Continue Levaquin and prednisone (60mg daily), may need a long taper. * Continue doxycycline, Duoneb inhalers, mucinex, and Acapella. * Patient continues home ICS/LABA therapy and Spiriva. * Continue doxycycline 100 mg twice a day for three days * Hypertension (Chronic): * Continue current home medication regimen. Plan and Recommendations: * Continue current respiratory treatments and O2 therapy. * Evaluate home oxygen requirements. * Complete necessary follow-up with pulmonology and other specialists as needed. * Reinforce education regarding COPD exacerbation management. * Continue antibiotics (doxycycline), prednisone taper, and other prescribed treatments.. Discharge Instructions: * Follow up with pulmonology and primary care provider. * Continue prescribed medications, including doxycycline, prednisone, and home O2 therapy as indicated. * Monitor oxygen saturation and work of breathing at home. * Do not smoke - use nicotine patches - call 3-624-JLWO-NOW for help with quitting (16 weeks of patches, gums or lozenges for free). * Return to the Emergency Department or call healthcare provider if symptoms worsen or new symptoms develop. * Home health PT, RN, MATTRESS STRIPPER Discharge Diagnosis: * Sepsis * Hypoxic respiratory failure * COPD exacerbation * Hypertension * Pleural effusion * Other conditions as per active problem list. Disposition: The patient will be discharged with the above medications, instructions, and follow-up plans in place. Home Meds and New Rx's Prescriptions: New doxycycline hyclate 100 mg Capsule 100 mg PO BID Qty: 7 0RF prednisone 20 mg Tablet See Taper PO DAILY Qty: 20 0RF Taper: Prednisone 20mg taper 50 mg Daily for 3 Days and 0 Hour 40 mg Daily for 3 Days and 0 Hour 20 mg Daily for 3 Days and 0 Hour 10 mg Daily for 3 Days and 0 Hour guaifenesin [Mucus Relief ER] 600 mg Tablet Extended Release 12hr 1,200 mg PO BID Qty: 30 0RF nicotine 14 mg/24 hr patch 24 hour 1 patch transdermal DAILY Qty: 28 0RF Continued diltiazem HCl 120 mg capsule,extended release 24hr 120 mg PO DAILY azithromycin 250 mg tablet 250 mg PO DAILY Qty: 90 3RF Patient Comments: three times a week ipratropium-albuterol 0.5 mg-3 mg(2.5 mg base)/3 mL solution for nebulization 3 ml inhalation TID PRN albuterol sulfate 90 mcg/actuation HFA aerosol inhaler 2 puff inhalation Q4H albuterol sulfate 2.5 mg /3 mL (0.083 %) solution for nebulization 2.5 mg inhalation Q6H PRN atorvastatin 20 mg tablet 20 mg PO DAILY omeprazole 20 mg capsule,delayed release(DR/EC) 20 mg PO DAILY Trelegy Ellipta 100-62.5-25 mcg blister with device 1 inh inhalation DAILY prednisone 50 mg tablet 50 mg PO DAILY Qty: 4 0RF Discontinued levofloxacin 750 mg tablet 750 mg PO DAILY Qty: 6 0RF Discharge Instructions Instructions: Chronic obstructive pulmonary disease (COPD), Smoking: Not Just Harmful to Your Lungs and Heart, Quitting smoking, Doxycycline, Nicotine, Oxygen therapy at home Additional Instructions: Follow up with your PCP and pulmonology. Use your oxygen. Prenisone taper as prescribed Doxycycline for the next 3.5 days (7 doses). Home health will call you to arrange a time to visit you. PLEASE DO NOT SMOKE CIGARETTES Use nicotine patches - call 9-404-JGYB-NOW for help with quitting (16 weeks of patches, gums or lozenges for free). Stand Alone Forms: Nursing Discharge Form Referrals: Mechelle Sprague [Primary Care Provider] - 07/16/24 1:30 pm (follow up one week post hospitalization stay. Please arrive at 1:15.) Janet Bearden PA [PHYSICIANS DIE CASTING SUPERVISOR] - (1 week post hospitalization for COPD exacerbation/PNA. I called and left a voicemail for them to give you a call to set up an appointment.) Activity:: Activity as Tolerated Equipment/Supplies:: Oxygen (L/min Below) Diet:: As Tolerated Discharge Orders Discharge Orders: Discharge Order (Routine); Ordered 07/09/24 Ordered By: Katie Griffin DS: Summary Time Spent with Patient providing and/or coordinating discharge services: Greater than 30 minutes Status at Discharge Functional status at discharge: uses cane/walker Overall status at discharge: patient is back to baseline Mental Status: mental status grossly normal Speech and Movement: speech and movement normal Mood: congruent mood Affect: normal affect Quality:SDOH Health Related Social Needs: No Data to Display Exam Narrative Exam Narrative: General Appearance: This, pleasant, conversant, sitting on the side of the bed. HEENT: Within normal limits. Respiratory: Diminished breath sounds bilaterally, no wheezing. Speaking in full sentences. Intermittent cough. No respiratory distress. Cardiovascular: Heart regular rate and rhythm, no murmurs. Extremities: No leg swelling. No calf tenderness. Skin: Warm and dry, no rash. Neurological: Normal. Psych Mental Status: mental status grossly normal Speech and Movement: speech and movement normal Mood: congruent mood Affect: normal affect DS: Data Vitals/I&O Vitals and I&O: Vital Signs Temperature 36.7 C 07/09/24 11:08 Temperature Source Temporal Artery Scan 07/09/24 11:08 Pulse 91 H 07/09/24 11:08 Pulse Rhythm Regular 07/05/24 15:06 Pulse 93 H 07/05/24 12:20 Respiratory Rate 12 07/09/24 11:08 Respiratory Effort Short of Breath, Labored, Incrsd Work of Breathing 07/05/24 15:06 Respiratory Depth Shallow 07/05/24 15:06 Respiratory Pattern Tachypnea 07/05/24 15:06 Blood Pressure 167/64 H 07/09/24 11:08 Blood Pressure Mean 77 07/05/24 10:46 Pulse Oximetry 90 L 07/09/24 11:08 Oxygen Delivery Method Room Air 07/09/24 11:08 Oxygen Flow Rate 0 07/09/24 11:08 Fraction of Inspired Oxygen (FIO2) 28 07/05/24 10:52 Pain Level 0 07/09/24 10:36 Comment pt requested to not be woken for 3 AM vitals 07/09/24 03:12 Intake & Output 07/08/24 07/09/24 07/09/24 23:59 11:59 23:59 Output Total 200 / 1300 775 / 775 Balance -200 / -1300 -775 / -775 Output: Urine 200 / 1300 775 / 775 Other: Urine Color Yellow Yellow Urine Appearance Clear Clear Urine Odor Normal Normal Comment Pt voided on commode. Stool Size Large Stool Characteristics Formed Data Completed and Pending Labs on day of discharge: Labs from last 24 hours 07/09/24 07:05 WBC 12.54 H RBC 3.85 L Hgb 11.1 L Hct 34.5 L MCV 90 MCH 28.8 MCHC 32.2 RDW 14.2 Plt Count 347 MPV 9.8 Immature Gran % 0.6 Neutrophils % 64.5 Lymphocytes % 21.7 Monocytes % 10.8 Eosinophils % 2.2 Basophils % 0.2 Nucleated RBC % 0.0 Absolute Neutrophils 8.09 H Absolute Lymphocytes 2.72 Absolute Monocytes 1.35 H Absolute Eosinophils 0.28 Absolute Basophils 0.03 Sodium 142 Potassium 3.8 Chloride 104 Carbon Dioxide 32.5 H Anion Gap 5.5 BUN 22 H Creatinine 0.5 L Est GFR (CKD-EPI 2020) 96.54 Glucose 102 Calcium 10.3 H Magnesium 2.0 Preliminary micro results at discharge 07/08/24 11:20 Blood Culture - Preliminary Blood NO GROWTH 24 HOURS 07/08/24 11:28 Blood Culture - Preliminary Blood NO GROWTH 24 HOURS 07/05/24 11:01 Blood Culture - Preliminary Blood NO GROWTH 96 HOURS PFSH All Active Problems (Updated 07/07/24 @ 15:09 by Gabriela Lama NP) Discharge planning issues (Acute) Anemia (Chronic) On deep vein thrombosis (DVT) prophylaxis (Acute) Hypertension (Chronic) Respiratory failure (Acute) Acute bronchitis with chronic obstructive pulmonary disease (COPD) (Acute) COPD exacerbation (Acute) Pleural effusion (Acute) Hypoxic respiratory failure (Chronic) COPD (chronic obstructive pulmonary disease) (Chronic) Tear film insufficiency (Acute) Palpitations (Acute) Osteoporosis (Chronic) Nicotine dependence (Acute) Hyperlipidemia (Acute) Hearing loss (Acute) Fluid in endometrial cavity (Acute) Exposure to hepatitis B (Acute) COPD, severe (Acute) Closed fracture of tarsal and metatarsal bones (Acute) Closed fracture of left wrist (Acute) Allergic rhinitis (Acute) Adhesive capsulitis of shoulder (Acute) Acute itb-YG-oitfzyf elevation myocardial infarction (Acute) Abnormal weight loss (Acute) Abnormal findings on diagnostic imaging of liver and biliary tract (Acute) Medical History H/O mammogram 08/30/11 H/O echocardiogram 07/02/21 Urinary tract infectious disease Genitourinary symptoms Chronic obstructive pulmonary disease with (acute) lower respiratory infection Surgical History H/O tubal ligation 1974 H/O repair of rotator cuff bilateral shoulders,04/17/03 History of colonoscopy 02/04/19 Family History Mother Cancer Diabetes Hypertension Father Myocardial infarction Social History Smoking/Tobacco Use Status: Current-Occasional Tobacco Type: cigarettes Years smoked: 50 Tobacco: How many years used: 60 Smoking risk assessment performed?: Yes Alcohol Intake: former Drug use: Never Substance use type: does not use Housing: house Do you feel safe at home: Yes Do you feel safe in your relationship?: Yes Additional Social history: Current tobacco user. Use:4-5 cigarettes per day. Started at age 17. Time Spent with Patient Time Spent with Patient: 45-69 minutes Time was spent: preparing to see the patient(eg.review tests), ordering medications,tests, procedures, referring, communicating with other health career and guidance counselor, indepentently interpreting results, counseling the patient and care coordination
--- NOTE | 2024-07-09 14:55 | PDOC.HHF2F_ITS ---
Home Health Referral Home Health Orders Clinical synopsis of why skilled professionals are needed: Chief Complaint: Increased cough, sputum production, and worsening shortness of breath over 2 days, particularly with ambulation. History of Present Illness: The patient presented to the ED on 07/06/24 with a two-day history of worsening cough, increased sputum, and SOB. She was seen on 07/03/24 for similar symptoms and discharged with Levaquin and prednisone. At the time of admission, her oxygen saturation was 89-90%, with a heart rate of 93 and tachypnea (RR 27-29). She denied fever, chills, chest pain, gastrointestinal symptoms, or genitourinary symptoms. She reported minimal dizziness, transient headache, and night sweats. In the ED, a chest X-ray was negative for pneumonia, but leukocytosis was present. Arterial blood gas results showed a pH of 7.35, PCO2 of 62, HCO3 of 34, and PO2 of 49. BiPAP was briefly used. The patient confirmed a full code status, with her son, Theo Spencer, listed as her POA. * Sepsis: * Start Date: 07/06/24 * Criteria met: WBC > 12, RR > 20, HR > 90, presumed respiratory source. * Hypoxic Respiratory Failure: * Start Date: 07/06/24 * Persistent low oxygen saturation with improved work of breathing. * COPD Exacerbation: * Acute exacerbation, end-stage COPD. * Continue Levaquin and prednisone (60mg daily), may need a long taper. * Continue doxycycline, Duoneb inhalers, mucinex, and Acapella. * Patient continues home ICS/LABA therapy and Spiriva. * Continue doxycycline 100 mg twice a day for three days * Hypertension (Chronic): * Continue current home medication regimen. Plan and Recommendations: * Continue current respiratory treatments and O2 therapy. * Evaluate home oxygen requirements. * Complete necessary follow-up with pulmonology and other specialists as needed. * Reinforce education regarding COPD exacerbation management. * Continue antibiotics (doxycycline), prednisone taper, and other prescribed treatments.. Discharge Instructions: * Follow up with pulmonology and primary care provider. * Continue prescribed medications, including doxycycline, prednisone, and home O2 therapy as indicated. * Monitor oxygen saturation and work of breathing at home. * Return to the Emergency Department or call healthcare provider if symptoms worsen or new symptoms develop. * Home health PT, RN, GROUP FITNESS MANAGER Discharge Diagnosis: * Sepsis * Hypoxic respiratory failure * COPD exacerbation * Hypertension * Pleural effusion * Other conditions as per active problem list. Disposition: The patient will be discharged with the above medications, instructions, and follow-up plans in place. Medical diagnosis necessitation home health referral: Oxygen-dependent COPD, chronic azithromycin use, recent pneumothorax, hypoxic respiratory failure, pleural effusion, hyperlipidemia, CAD, sepsis, hypertension, and acute bronchitis, among others. Registered Nurse: Check all that apply Instruct on new or changed medication(s)/assess compliance: Ordered Assess for exacerbation of medical condition, instruct patient/caregivers on signs and symptoms to report for early detection: Ordered Physical Therapist: Check all that apply Increase strength & endurance for safe mobility at home: Ordered To design/establish home maintenance program: Ordered Fall reduction therapy program for patient with history of frequent falls: Ordered Home safety evaluation and teaching/gait training including stair management (if applicable): Ordered Better Breathing Program: Ordered School Cleaner: Assist with community resources: Ordered Assist with retirement care planning: Ordered Home Bound Status Requires the aid of supportive device (check all that apply): Other Patient has a condition such that leaving home is medically contraindicated (Describe): Oxygen dependent Describe why leaving home would require a considerable and taxing effort: Requires frequent rest periods and Oxygen Encounter Date and Reason: I certify that a FTF encounter for this patient was performed on July 09, 2024 and that such encounter was related to the primary reason the patient requires home health services. The encounter was conducted in the following manner: * By me as the certifying physician, DIESEL DINKEY OPERATOR, PA or * By an inpatient physician, DIESEL DINKEY OPERATOR or PA during an inpatient stay who communicated findings to me, Certification And Authentication I certify that I composed the above information based on my clinical judgment relating to this patient's medical condition and, if applicable, clinical findings communicated to me by the NPP or inpatient physician who performed the FTF encounter. Name of Provider that will be monitoring home health services: Mechelle Sprague
[2024-07-09 15:06] VITALS: BP 146/67; PULSE 93; RESP 15; TEMP 36.8; O2SAT 90
[2024-07-09] MEDS: Nicotine 14 MG/24 HR PATCH TD (15:13)
--- NOTE | 2024-07-09 15:25 | PT.INTREAT ---
PT Notes Visit Reasons: COPD exacerbation,hypoxic resp failure, sepsis Inpatient Physical Therapy Treatment Note [facility] Date: 07/09/24 SUBJECTIVE: Don't let me get away with anything! States that she is going home later this afternoon. OBJECTIVE: []? PAIN: none VITALS: ?Os sats Therapeutic Activities (17035i[]): Direct one-on-one instruction in dynamic activities to improve functional performance. ? BED MOBILITY/TRANSFERS? Rolling L/R: [] Supine-sit: []? Sit-supine: [] ? Sit-stand: []? Stand-sit: [] ? Bed-Chair: [] ? Chair-bed: [] Provided skilled cues and instruction on performance and technique throughout. Gait Training (13267i[]): Direct one-on-one instruction and skilled instruction in: [] employing an assistive device [] modified weight-bearing status [] movement sequencing [] turning and movement with proper form [] Provided verbal cues for equipment management and technique [] Provided instruction in gait pattern [] Patient education regarding pacing and breathing techniques to maximize activity tolerance? GAIT? Assistive Device: []? Weight bearing: [] Assist: [] ? Distance:? [] ? Deviation: [] ? STAIRS:[] ? Therapeutic Exercises (05934h[]): Direct one-on-one instruction in therapeutic exercises to develop strength, endurance, range of motion and flexibility. ? Exercises ? [] Ambulation ? Assistive Device: []? Weight bearing: [] Assist: [] ? Distance:? [] ? Deviation: [] ? Provided skilled instruction in proper exercise performance Provided skilled manual cues to facilitate proper muscle recruitment and/or form: [] Neuromuscular Re-education ([id number][]): Activities that facilitate re-education of movement balance, posture, coordination, and proprioception or kinesthetic sense, requiring skilled tactile and verbal cues ? Exercises/techniques: ? [] ASSESSMENT:? [] PLAN: [] TREATMENT CODE/TIME: [] DISCHARGE RECOMMENDATION: []
== END 2024-07-09 18:06 | disposition home health service (06) ==
LOC: ER 13:19 → MS 13:59
PROVIDERS: Nurse Practitioner Acute Care; Admitting Provider Hospitalist; Emergency Provider Student in an Organized Health Care Education/Training Program; PCP Nurse Practitioner Family; Responsible Provider Nurse Practitioner Family; Visit Provider Hospitalist
DX: A41.9 Sepsis, unspecified organism (principal); J44.0 Chronic obstructive pulmonary disease with (acute) lower respiratory infection; J20.9 Acute bronchitis, unspecified; J96.11 Chronic respiratory failure with hypoxia; J44.1 Chronic obstructive pulmonary disease with (acute) exacerbation; J90 Pleural effusion, not elsewhere classified; I10 Essential (primary) hypertension; D64.9 Anemia, unspecified; Z79.899 Other long term (current) drug therapy; Z99.81 Dependence on supplemental oxygen; I25.10 Atherosclerotic heart disease of native coronary artery without angina pectoris; E78.5 Hyperlipidemia, unspecified; D72.829 Elevated white blood cell count, unspecified; M81.0 Age-related osteoporosis without current pathological fracture; F17.210 Nicotine dependence, cigarettes, uncomplicated; J30.9 Allergic rhinitis, unspecified; R63.4 Abnormal weight loss; Z68.1 Body mass index [BMI] 19.9 or less, adult; I25.2 Old myocardial infarction
CPT/HCPCS: 00123; 36415; 80048; 80053; 82805; 84145; 87040; 87077; 87637; 93005; 94640; 96365; 96366; 96372; 97162; 97530; 99291; 71046; 82728; 83540; 83550; 83735; 83880; 84484; 85025; 85045; 93010; 94664; 94668; 94760; 99223; 99232; 99233; 99239; G0378; J1650; J7512; J7613; J7620

== ENCOUNTER 2024-07-18 14:37 | Outpatient (REF) | payer MEDICARE, MEDICAID, SELFPAY ==
[2024-07-18 14:48] LABS: Abs Immature Grans 0.03 10^3/uL (0.0-0.06); Absolute Basophil Count 0.02 10^3/uL (0.0-0.2); Absolute Eosinophil Count 0.15 10^3/uL (0.0-0.7); Absolute Lymphocyte Count 1.96 10^3/uL (1.2-3.4); Absolute Monocyte Count 0.75 10^3/uL (0.1-0.8); Absolute Neutrophil Count 5.61 10^3/uL (1.2-6.7); Basophils % 0.2 %; Eosinophils % 1.8 %; HCT 35.5 % (36.0-46.0); HGB 11.4 g/dL (11.2-15.7); Immature Grans % 0.4 %; MCH 28.7 pg (27.0-33.0); MCHC 32.1 % (32.0-36.0); MCV 89 fL (80-95); MPV 10.5 fL (8.0-11.0); Monocytes % 8.8 %; Neutrophils % 65.8 %; Platelet Count 368 10^3/uL (130-400); RBC 3.97 10^6/uL (3.93-5.22); RDW 14.5 % (11.7-14.6); RDW-SD 46.5 fL; WBC 8.52 10^3/uL (4.4-10.8)
[2024-07-18 14:59] LABS: Bilirubin Negative (Negative); Blood Negative (Negative); Clarity Sl Cloudy (Clear); Glucose 100 mg/dL (Negative); Ketones Negative (Negative); Leukocyte Esterase Negative (Negative); Nitrite Negative (Negative); Urobilinogen 0.2 mg/dL (Up to 0.2)
[2024-07-18 16:08] LABS: ALT 39 U/L (14-59); AST 20 U/L (15-37); Albumin 3.7 g/dL (3.4-5.0); Alkaline Phosphatase 75 U/L (46-116); Anion Gap 10.5 mmol/L (3-11); BUN 17 mg/dL (7-18); Bilirubin, Total 0.3 mg/dL (0.2-1.0); CO2 28.5 mmol/L (21.0-32.0); CREATININE 0.6 mg/dL (0.55-1.02); Calcium 9.5 mg/dL (8.5-10.1); Chloride 105 mmol/L (98-107); Estimated GFR 92.39 (mL/min/1.73m2); Ferritin 20 ng/mL (8-252); Glucose 89 mg/dL (74-106); Potassium 4.6 mmol/L (3.5-5.1); Sodium 144 mmol/L (136-145); Total Protein 6.4 g/dL (6.4-8.2)
[2024-07-18 16:57] LABS: Iron 26 ug/dL (50-170); Total Iron Binding Capacity 362 ug/dL (250-450); Transferrin Sat 7 % (15-50)
[2024-07-19 09:15] LABS: Transferrin 269 mg/dL (201-352)
== END 2024-07-18 14:38 | disposition home or self-care (01) ==
LOC: NCHCN 14:37
PROVIDERS: PCP Nurse Practitioner Family; Visit Provider Nurse Practitioner Family
DX: D64.9 Anemia, unspecified (principal); R39.9 Unspecified symptoms and signs involving the genitourinary system; I10 Essential (primary) hypertension
CPT/HCPCS: 80053; 81003; 82728; 83540; 83550; 84466; 85025

== ENCOUNTER → 2024-07-23 12:37 | Outpatient (BNVA) | payer MEDICARE, MEDICAID, SELFPAY | PROVIDERS: PCP Nurse Practitioner Family; Referring Provider Internal Medicine; Visit Provider Physician Assistant Surgical | DX: J44.9 Chronic obstructive pulmonary disease, unspecified (principal); J96.91 Respiratory failure, unspecified with hypoxia; J90 Pleural effusion, not elsewhere classified | CPT/HCPCS: 99214 ==

== ENCOUNTER 2024-08-09 00:17 | Outpatient (CLI) | payer MEDICARE, MEDICAID, SELFPAY ==
--- NOTE | 2024-08-09 | DI.US_ITS ---
Exam(s) US RENAL EXAM: US RENAL CLINICAL HISTORY: LUTS, R39.9 TECHNIQUE: Ultrasound of both kidneys performed using standard protocol. COMPARISON: No exams were available for comparison FINDINGS: RIGHT KIDNEY: Measures 9.5 cm in length. No cysts evident. Normal cortical thickness and corticomedullary different iation .No solid masses No intrarenal calculi nor hydronephrosis. LEFT KIDNEY: Measures 10.7 cm in length. No cysts evident. Normal cortical thickness and corticomedullary differe ntiaion. No solids masses. No intrarenal calculi nor hydonephrosis. URINARY BLADDER: Prevoid volume is 421 cc Postvoid volume is 46 cc No evidence of bladder mass nor diverticuli. Ureterovesical jets: Both identified and appear symmetrical IMPRESSION: 1. No significant ultrasound findings in the kidneys. 2. Postvoid residual volume in the urinary bladder is 46 cc, mildly increased DATA REPOSITORY:
== END 2024-08-09 00:37 ==
LOC: DI 00:18
PROVIDERS: PCP Nurse Practitioner Family; Visit Provider Nurse Practitioner Family
DX: R39.9 Unspecified symptoms and signs involving the genitourinary system (principal)
CPT/HCPCS: 76770

== ENCOUNTER 2024-08-29 10:52 | Emergency (ER) | payer MEDICARE, MEDICAID, SELFPAY ==
--- NOTE | 2024-08-29 10:45 | RT.EKG_ITS ---
APPROVED REPORT Exam: Resting ECG Reason for Exam: SOB Patient Location: E HR:87 bpm ECG Measurements Heart Rate 87 AXIS MO 113 P 88 QRSd 74 QRS 77 QT 387 T 82 QTc 467 Conclusion Sinus rhythm, rate 87 PVCs with trigeminy No STEMI Q waaves V1, V2
[2024-08-29 10:58] VITALS: BP 145/55; PULSE 85; RESP 20; TEMP 36.6; O2SAT 92
--- NOTE | 2024-08-29 11:15 | DI.RAD_ITS ---
Exam(s) XR CHEST 2V PA LATERAL EXAM: XR CHEST 2V PA LATERAL CLINICAL HISTORY: hypoxia TECHNIQUE: 2D digital imaging was performed of the chest. Two images were obtained. PA and lateral views were obtained. COMPARISON: CR XR CHEST 2V PA LATERAL from 07/05/2024 FINDINGS: MEDIASTINUM: Normal. HEART: Normal. PULMONARY VASCULATURE: Normal. LUNGS: The lungs are hyperinflated with flattened diaphragms suggesting underlying COPD. No focal co nsolidating infiltrates are present. PLEURAL SPACE: No pleural effusion or pneumothorax. BONE:Within normal limits for the patient's age. There is an old mid thoracic compression fracture d eformity which is stable. There are degenerative changes seen in the right shoulder. OTHER FINDINGS:Normal. IMPRESSION: No focal consolidating infiltrates. DATA REPOSITORY: RADIATION DOSE DELIVERED:
[2024-08-29 11:16] VITALS: BP 145/55; PULSE 85; RESP 20; TEMP 36.6; O2SAT 92
[2024-08-29] MEDS: Albuterol/Ipratropium 3 ML UPD VIAL 9 ML UPD (11:50)
[2024-08-29] MEDS: methylPREDNISolone SUCC 125 MG VIAL IVP (11:52)
[2024-08-29] MEDS: MAGNESIUM SULFATE 2 GM/50 ML BAG IV_INF (11:52)
[2024-08-29 11:53] LABS: BE (Venous) 7 mmol/L (-2-3); HCO3 (Venous) 32 mmol/L (23-28); O2 Sat (Venous) 55 %; TCO2 (Venous) 31 mmol/L (24-29); pCO2 (Venous) 60 mmHg (41-51); pH (Venous) 7.34 (7.31-7.41); pO2 (Venous) 32 mmHg
[2024-08-29 11:54] LABS: Lactate 0.9 mmol/L (<or=2.0)
[2024-08-29 11:55] LABS: Abs Immature Grans 0.03 10^3/uL (0.0-0.06); Absolute Basophil Count 0.06 10^3/uL (0.0-0.2); Absolute Eosinophil Count 0.12 10^3/uL (0.0-0.7); Absolute Lymphocyte Count 0.94 10^3/uL (1.2-3.4); Absolute Monocyte Count 0.49 10^3/uL (0.1-0.8); Basophils % 0.7 %; Eosinophils % 1.5 %; HCT 32.1 % (36.0-46.0); HGB 9.9 g/dL (11.2-15.7); Immature Grans % 0.4 %; Lymphocytes % 11.4 %; MCH 26.1 pg (27.0-33.0); MCHC 30.8 % (32.0-36.0); MCV 85 fL (80-95); MPV 9.8 fL (8.0-11.0); Monocytes % 5.9 %; Neutrophils % 80.1 %; Platelet Count 333 10^3/uL (130-400); RBC 3.79 10^6/uL (3.93-5.22); RDW 14.2 % (11.7-14.6); RDW-SD 43.9 fL; WBC 8.24 10^3/uL (4.4-10.8)
--- NOTE | 2024-08-29 11:59 | ED.GENADUL_ITS ---
Discharge Plan Disposition Patient Disposition: Home Condition: Stable Discharge Details Clinical Impression: COPD exacerbation Primary Care Provider: Mechelle Sprague ED Provider: Peter Christina Home Meds and New Rx's Prescriptions: New prednisone 20 mg tablet 40 mg PO DAILY 4 Days Qty: 8 0RF Rx Instructions: start tomorrow- 08/30/24 loratadine 10 mg tablet 10 mg PO DAILY 7 Days Qty: 7 0RF Continued azithromycin 250 mg tablet 250 mg PO DAILY Qty: 90 3RF Patient Comments: three times a week cholecalciferol (vitamin D3) 125 mcg (5,000 unit) capsule 125 mcg PO DAILY ipratropium-albuterol 0.5 mg-3 mg(2.5 mg base)/3 mL solution for nebulization 3 ml inhalation TID PRN albuterol sulfate 90 mcg/actuation HFA aerosol inhaler 2 puff inhalation Q4H albuterol sulfate 2.5 mg /3 mL (0.083 %) solution for nebulization 2.5 mg inhalation Q6H PRN atorvastatin 20 mg tablet 20 mg PO DAILY omeprazole 20 mg capsule,delayed release(DR/EC) 20 mg PO DAILY Trelegy Ellipta 100-62.5-25 mcg blister with device 1 inh inhalation DAILY guaifenesin [Mucus Relief ER] 600 mg Tablet Extended Release 12hr 1,200 mg PO BID Qty: 30 0RF No Action diltiazem HCl 180 mg capsule,extended release 24hr 180 mg PO DAILY Patient Comments: TAKE ONE CAPSULE BY MOUTH EVERY DAY Discharge Instructions Instructions: Azithromycin (Systemic), Loratadine, Prednisone, COPD Exacerbation, Adult ED Additional Instructions: You were seen in the emergency department for your COPD exacerbation, your oxygen is stable here at your baseline, please use a little bit more oxygen as you ambulate around the house and try to keep your SpO2 at or above 90 to 91%, you had elevated CO2 which could get worse so have a low threshold to come back if you have worsening respiratory distress. There is no pneumonia seen on your chest x-ray and your labs are all showing no signs of severe infection, no damage to the heart. I have sent you a prescription for prednisone for the next 5 days as well as azithromycin for the next 5 days, have also sent a prescription for an [id number] antiallergy medicine as this is likely because of your COPD exacerbation. Please have a low threshold to come back, thank you for allowing us to participate in your care today. Referrals: Mechelle Sprague [Primary Care Provider] - Discharge Data Discharge Date/Time-TO BE ENTERED AT DEPARTURE: 08/29/24 15:02 HPI General Date/Time Provider Initiated Documentation: 08/29/24 11:16 . HPI Narrative: 79 year-old female presents to ED today by POV/ambulating with a chief complaint of increased use of home O2 as an end-stage palliative COPD patient with onset yesterday. Quality described as generalized cough and increase in baseline O2 use by 1-2L, no radiation to fever, chest pain, nausea/vomiting, abdominal pain, black/bloody stools, syncope, dizziness. Severity is described as moderate. Pa lliating factors include increased her at-home oxygen when ambulating, which is he normal at-home protocol. Provoking factors include nothing specific- runny nose perhaps. Patient not anticoagulated. Related Data Home Medications ?Medication ?Instructions ?Recorded ?Confirmed albuterol sulfate 2.5 mg/3 mL 2.5 mg inhalation Q6H PRN 04/18/23 08/31/24 (0.083 %) solution for nebulization albuterol sulfate 90 mcg/actuation 2 puff inhalation Q4H 04/18/23 08/31/24 aerosol inhaler atorvastatin 20 mg tablet 20 mg PO DAILY 04/18/23 08/31/24 fluticasone fur. 100 mcg-umeclid 1 inh inhalation DAILY 04/18/23 08/31/24 62.5 mcg-vilant 25 mcg inhalat.powder (Trelegy Ellipta) ipratropium 0.5 mg-albuterol 3 mg 3 ml inhalation TID PRN 04/18/23 08/31/24 (2.5 mg base)/3 mL nebulization soln omeprazole 20 mg capsule,delayed 20 mg PO DAILY 04/18/23 08/31/24 release azithromycin 250 mg tablet 250 mg PO DAILY #90 tabs 04/24/24 08/31/24 guaifenesin 600 mg tablet, 1,200 mg (2 x 600 mg) PO BID #30 07/09/24 08/31/24 extended release 12 hr (Mucus tabs Relief ER) cholecalciferol (vitamin D3) 125 125 mcg PO DAILY 07/23/24 08/31/24 mcg (5,000 unit) capsule loratadine 10 mg tablet 10 mg PO DAILY 7 days #7 tabs 08/29/24 08/31/24 prednisone 20 mg tablet 40 mg (2 x 20 mg) PO DAILY 4 days 08/29/24 08/31/24 #8 tabs diltiazem HCl 180 mg 180 mg PO DAILY 08/31/24 08/31/24 capsule,extended release 24 hr Previous Rx's ?Medication ?Instructions ?Recorded azithromycin 250 mg tablet 250 mg PO DAILY #90 tabs 04/24/24 guaifenesin 600 mg tablet, 1,200 mg (2 x 600 mg) PO BID #30 07/09/24 extended release 12 hr (Mucus tabs Relief ER) loratadine 10 mg tablet 10 mg PO DAILY 7 days #7 tabs 08/29/24 prednisone 20 mg tablet 40 mg (2 x 20 mg) PO DAILY 4 days 08/29/24 #8 tabs Allergies Allergy/AdvReac Type Severity Reaction Status Date / Time pollen extracts Allergy Unknown Other (See Verified 08/31/24 07:16 Comment) sulfamethoxazole (From Allergy Unknown Other (See Verified 08/31/24 07:16 Sulfamethoxazole-Trimethoprim) Comment) trimethoprim (From Allergy Unknown Other (See Verified 08/31/24 07:16 Sulfamethoxazole-Trimethoprim) Comment) lemon Allergy Other (See Verified 08/31/24 07:16 Comment) seasonal Allergy Unknown Other (See Uncoded 08/31/24 07:16 Comment) sulfa drugs Allergy Unknown Other (See Uncoded 08/31/24 07:16 Comment) General Stated Complaint: SOB SHAREE: 3 Review of Systems All systems reviewed & are unremarkable except as noted in HPI and below Exam Narrative Exam Narrative: GENERAL APPEARANCE: Frail, non-toxic, awake and alert, atraumatic, no acute distress. SKIN: Warm, pink, dry, intact, without rashes/lesions/ulcerations. HEAD: Normocephalic, atraumatic, normal hair distribution for gender/age. EYES: Normal conjunctiva, no exudates on lids/lashes. ENT: Nares patent, no circumoral cyanosis, no facial swelling NECK: Supple, trachea midline, painless cervical ROM. LUNGS/CHEST: Lungs-mild expiratory wheezes, no rhonchi or rales, non-labored respirations, normal A/P diameter, symmetrical expansion, no chest wall deformity HEART (CV/PV): Regular rate and rhythm without murmur, no peripheral edema, no JVD. ABDOMEN: Soft, non-distended, no guarding, benign abdomen without tenderness. MSK: Normal ROM, no swelling/deformity to bilateral UEs or LEs, moving all extremities without weakness, no cyanosis, spine midline without tenderness, normal curvature. NEURO: Mental Status AAOx4 - alert to person, place, time, events No facial droop, no forehead involvement. Motor: No focal weakness - strength 5/5 in bilateral UEs and LEs, proximal and distal, symmetric. Sensory: sensation intact to light touch globally. Gait NT PSYCH: euthymic, cooperative, pleasant, appropriate speech Course Vital Signs Vital signs: Vital Signs Temperature 36.6 C 08/29/24 10:58 Pulse 85 08/29/24 10:58 Respiratory Rate 20 08/29/24 10:58 Blood Pressure 145/55 H 08/29/24 10:58 Pulse Oximetry 92 08/29/24 10:58 Temperature 36.6 C 08/29/24 11:16 Temperature Source Oral 08/29/24 11:16 Pulse 85 08/29/24 11:16 Respiratory Rate 20 08/29/24 11:16 Blood Pressure 145/55 H 08/29/24 11:16 Pulse Oximetry 92 08/29/24 11:16 Oxygen Delivery Method Nasal Cannula 08/29/24 11:16 Oxygen Flow Rate 0 08/29/24 11:16 Pain Level 6 08/29/24 11:16 Lab/Test Results Lab/Test Results: Laboratory Tests Range/Units 08/29/24 11:45 VBG pH (7.31-7.41) 7.34 VBG pCO2 (41-51) mmHg 60 H VBG pO2 mmHg 32 VBG HCO3 (23-28) mmol/L 32 H VBG Total CO2 (24-29) mmol/L 31 H VBG O2 Saturation % 55 VBG Base Excess (-2-3) mmol/L 7 H VBG Lactate (<or=2.0) mmol/L 0.9 Medical Decision Making This dictation utilizes [id number] dictation software and may contain unedited grammatical errors. 79 year-old female presents to ED today by POV/ambulating with a chief complaint of increased use of home O2 as an end-stage palliative COPD patient with onset yesterday. Quality described as generalized cough and increase in baseline O2 use by 1-2L, no radiation to fever, chest pain, nausea/vomiting, abdominal pain, black/bloody stools, syncope, dizziness. Severity is described as moderate. Pa lliating factors include increased her at-home oxygen when ambulating, which is he normal at-home protocol. Provoking factors include nothing specific- runny nose perhaps. Patients' medical history: End-stage COPD, hypertension, anemia, fall risk, history of NSTEMI. Family and social history: No sick contacts in the home, lives with family. Pertinent exam findings / vital signs include mild expiratory wheezes, baseline O2 92%, benign abdomen, benign cardiac exam, neuro intact, nontoxic and afebrile. Differential / pathologies of concern include COPD exacerbation, allergies, pneumonia, demand ischemia, viral syndrome. Diagnostic studies of: - XR chest, EKG, CBC, CMP, lactate, VBG, magnesium, serial troponins, PCR respiratory swab. - X-ray chest shows no pneumonia - CBC shows chronic anemia without leukocytosis - Lactate negative - VBG shows CO2 retention of chronic nature at 60, normal pH - CMP shows no actionable abnormality - Magnesium within normal limits - Serial troponins negative - Respiratory PCR swab negative - EKG without ischemic changes or new bundle branch block Interventions of: - Hour-long DuoNeb, 25 mg methylprednisolone IVP, 2 g magnesium sulfate for shortness of breath. Rx for prednisone and loratadine ED Course/Assessment/Plan: 79-year-old female with end-stage COPD at baseline presents with increased oxygen use at home lately, her inhalers are not helping, she notes a mild runny nose, there is no pneumonia on her chest x-ray and her laboratory workup is benign with no elevation of troponin of demand ischemia. I counseled the patient on likely COPD exacerbation possibly due to emergence of pollen and allergies with her mild runny nose, nebulizer treatment effective and she is at her baseline, I stressed following her at home protocol with increasing her O2 as needed with a target SpO2 of 92%, I counseled her on short course of prednisone and azithromycin for its anti-inflammatory effects in the lungs. Findings not consistent with acute respiratory failure, demand ischemia, ACS, electrolyte abnormality, pneumonia. Disposition of COPD Exacerbation. Patient verbalized understanding of the plan and return to ED criteria and engaged in shared decision making. Medical Records Medical records reviewed: Yes I reviewed the patient's medical records. Imaging Data Radiologic Study: Attestation: I personally reviewed and interpreted this imaging study as follows: Imaging: X-Ray Radiologist's impression: EXAM: XR CHEST 2V PA LATERAL CLINICAL HISTORY: hypoxia TECHNIQUE: 2D digital imaging was performed of the chest. Two images were obtained. PA and lateral views were obtained. COMPARISON: CR XR CHEST 2V PA LATERAL from 07/05/2024 FINDINGS: MEDIASTINUM: Normal. HEART: Normal. PULMONARY VASCULATURE: Normal. LUNGS: The lungs are hyperinflated with flattened diaphragms suggesting underlying COPD. No focal consolidating infiltrates are present. PLEURAL SPACE: No pleural effusion or pneumothorax. BONE:Within normal limits for the patient's age. There is an old mid thoracic compression fracture deformity which is stable. There are degenerative changes seen in the right shoulder. OTHER FINDINGS:Normal. IMPRESSION: No focal consolidating infiltrates. Lab Data Lab results reviewed: Yes I reviewed the patient's lab results. Labs: Laboratory Tests Range/Units 08/29/24 08/29/24 11:45 13:25 WBC (4.4-10.8) 10^3/uL 8.24 RBC (3.93-5.22) 10^6/uL 3.79 L Hgb (11.2-15.7) g/dL 9.9 L Hct (36.0-46.0) % 32.1 L MCV (80-95) fL 85 MCH (27.0-33.0) pg 26.1 L MCHC (32.0-36.0) % 30.8 L RDW (11.7-14.6) % 14.2 Plt Count (130-400) 10^3/uL 333 MPV (8.0-11.0) fL 9.8 Immature Gran % % 0.4 Neutrophils % % 80.1 Lymphocytes % % 11.4 Monocytes % % 5.9 Eosinophils % % 1.5 Basophils % % 0.7 Nucleated RBC % (0.0-0.3) % 0.0 Absolute Neutrophils (1.2-6.7) 10^3/uL 6.60 Absolute Lymphocytes (1.2-3.4) 10^3/uL 0.94 L Absolute Monocytes (0.1-0.8) 10^3/uL 0.49 Absolute Eosinophils (0.0-0.7) 10^3/uL 0.12 Absolute Basophils (0.0-0.2) 10^3/uL 0.06 VBG pH (7.31-7.41) 7.34 VBG pCO2 (41-51) mmHg 60 H VBG pO2 mmHg 32 VBG HCO3 (23-28) mmol/L 32 H VBG Total CO2 (24-29) mmol/L 31 H VBG O2 Saturation % 55 VBG Base Excess (-2-3) mmol/L 7 H VBG Lactate (<or=2.0) mmol/L 0.9 Sodium (136-145) mmol/L 141 Potassium (3.5-5.1) mmol/L 3.8 Chloride (98-107) mmol/L 103 Carbon Dioxide (21.0-32.0) mmol/L 32.7 H Anion Gap (3-11) mmol/L 5.3 BUN (7-18) mg/dL 11 Creatinine (0.55-1.02) mg/dL 0.5 L Est GFR (CKD-EPI 2020) (mL/min/1.73m2) 96.54 Glucose (74-106) mg/dL 92 Calcium (8.5-10.1) mg/dL 9.6 Magnesium (1.8-2.4) mg/dL 2.1 Total Bilirubin (0.2-1.0) mg/dL 0.3 AST (15-37) U/L 21 ALT (14-59) U/L 28 Alkaline Phosphatase (46-116) U/L 85 Troponin I (<or=51) ng/L 7 4 Total Protein (6.4-8.2) g/dL 7.4 Albumin (3.4-5.0) g/dL 4.0 COVID-19 Source Nasopharynx SARS-CoV-2 (PCR) (Negative) Negative Influenza Type A (PCR) (Negative) Negative Influenza Type B (PCR) (Negative) Negative RSV (PCR) (Negative) Negative Quality:SDOH Health Related Social Needs: No Data to Display PFSH All Active Problems (Updated 08/31/24 @ 15:25 by Gabriela Lama NP) Hypertension (Chronic) Anemia (Chronic) Acute exacerbation of chronic obstructive pulmonary disease (COPD) (Acute) Respiratory failure, unspecified with hypercapnia (Acute) COPD exacerbation (Acute) Dyspnea (Acute) At risk for falling (Acute) ACP (advance care planning) (Acute) Impaired instrumental activities of daily living (Acute) Acute bronchitis with chronic obstructive pulmonary disease (COPD) (Acute) COPD exacerbation (Acute) Pleural effusion (Acute) Hypoxic respiratory failure (Chronic) COPD (chronic obstructive pulmonary disease) (Chronic) Tear film insufficiency (Acute) Palpitations (Acute) Osteoporosis (Chronic) Nicotine dependence (Acute) Hyperlipidemia (Acute) Hearing loss (Acute) Fluid in endometrial cavity (Acute) Exposure to hepatitis B (Acute) COPD, severe (Acute) Closed fracture of tarsal and metatarsal bones (Acute) Closed fracture of left wrist (Acute) Allergic rhinitis (Acute) Adhesive capsulitis of shoulder (Acute) Acute lyp-PO-cogkuzg elevation myocardial infarction (Acute) Abnormal weight loss (Acute) Abnormal findings on diagnostic imaging of liver and biliary tract (Acute) Medical History Anemia Hypertension H/O mammogram 08/30/11 H/O echocardiogram 07/02/21 Urinary tract infectious disease Genitourinary symptoms Chronic obstructive pulmonary disease with (acute) lower respiratory infection Surgical History H/O tubal ligation 1974 H/O repair of rotator cuff bilateral shoulders,04/17/03 History of colonoscopy 02/04/19 Family History Mother Cancer Diabetes Hypertension Father Myocardial infarction Social History Smoking/Tobacco Use Status: Current-Occasional Tobacco Type: cigarettes Years smoked: 50 Tobacco: How many years used: 60 Smoking risk assessment performed?: Yes Alcohol Intake: former Drug use: Never Substance use type: does not use Housing: house Do you feel safe at home: Yes Do you feel safe in your relationship?: Yes Additional Social history: Current tobacco user. Use:4-5 cigarettes per day. Started at age 17.
[2024-08-29 12:09] VITALS: RESP 34
[2024-08-29 12:19] LABS: ALT 28 U/L (14-59); AST 21 U/L (15-37); Alkaline Phosphatase 85 U/L (46-116); Anion Gap 5.3 mmol/L (3-11); BUN 11 mg/dL (7-18); Bilirubin, Total 0.3 mg/dL (0.2-1.0); CO2 32.7 mmol/L (21.0-32.0); CREATININE 0.5 mg/dL (0.55-1.02); Calcium 9.6 mg/dL (8.5-10.1); Chloride 103 mmol/L (98-107); Estimated GFR 96.54 (mL/min/1.73m2); Glucose 92 mg/dL (74-106); Magnesium 2.1 mg/dL (1.8-2.4); Potassium 3.8 mmol/L (3.5-5.1); Sodium 141 mmol/L (136-145); Total Protein 7.4 g/dL (6.4-8.2); Troponin I 7 ng/L (<or=51)
[2024-08-29 12:31] LABS: COVID-19 PCR Negative (Negative); Influenza A PCR Negative (Negative); Influenza B PCR Negative (Negative); RSV PCR Negative (Negative)
[2024-08-29 13:01] LABS: Source Nasopharynx
[2024-08-29 13:57] LABS: Troponin I 4 ng/L (<or=51)
[2024-08-29 15:01] VITALS: BP 142/55; PULSE 54; RESP 25; O2SAT 92
== END 2024-08-29 15:02 | disposition home or self-care (01) ==
PROVIDERS: Emergency Provider Physician Assistant; PCP Nurse Practitioner Family
DX: J44.1 Chronic obstructive pulmonary disease with (acute) exacerbation (principal); Z99.81 Dependence on supplemental oxygen
CPT/HCPCS: 36415; 80053; 82805; 87637; 93005; 94640; 96365; 96375; 99284; 71046; 83605; 83735; 84484; 85025; 93010; J2919; J3475; J7620

== ENCOUNTER 2024-08-31 06:52 | Inpatient (IN) | payer MEDICARE, MEDICAID, SELFPAY ==
[2024-08-31] VITALS (63 sets, daily range): BP systolic 113–193; BP diastolic 37–82; PULSE 78–114; RESP 5–33; TEMP 36–36.7; O2SAT 87–99
--- NOTE | 2024-08-31 06:45 | RT.EKG_ITS ---
APPROVED REPORT Exam: Resting ECG Reason for Exam: SOB Patient Location: E HR:101 bpm ECG Measurements Heart Rate 101 AXIS AZ 113 P 86 QRSd 75 QRS 58 QT 326 T 49 QTc 419 Conclusion Sinus rhythm...normal P axis, V-rate 60- 99 Atrial premature complex...SV complex w/ short R-R interval Borderline ST depression, diffuse leads...ST <-0.07mV, ant/lat/inf Physician: no stemi
--- NOTE | 2024-08-31 07:07 | ED.GENADUL_ITS ---
Discharge Plan Discharge Details Chief Complaint: SOB Clinical Impression: Respiratory failure, unspecified with hypercapnia, Acute exacerbation of chronic obstructive pulmonary disease (COPD) Primary Care Provider: Mechelle Sprague ED Provider: Peter Walden Home Meds and New Rx's Prescriptions: No Action azithromycin 250 mg tablet 250 mg PO DAILY Qty: 90 3RF Patient Comments: three times a week diltiazem HCl 120 mg capsule,extended release 24hr 180 mg PO DAILY Patient Comments: patient reports increase from 120 to 180 cholecalciferol (vitamin D3) 125 mcg (5,000 unit) capsule 125 mcg PO DAILY ipratropium-albuterol 0.5 mg-3 mg(2.5 mg base)/3 mL solution for nebulization 3 ml inhalation TID PRN albuterol sulfate 90 mcg/actuation HFA aerosol inhaler 2 puff inhalation Q4H albuterol sulfate 2.5 mg /3 mL (0.083 %) solution for nebulization 2.5 mg inhalation Q6H PRN atorvastatin 20 mg tablet 20 mg PO DAILY omeprazole 20 mg capsule,delayed release(DR/EC) 20 mg PO DAILY Trelegy Ellipta 100-62.5-25 mcg blister with device 1 inh inhalation DAILY guaifenesin [Mucus Relief ER] 600 mg Tablet Extended Release 12hr 1,200 mg PO BID Qty: 30 0RF azithromycin 250 mg tablet See Rx Instructions .ROUTE .COMPLEX Qty: 6 0RF Rx Instructions: For 250 mg dose pack: take 500 mg today (day 1), then 250 mg for 4 days (days 2-5) prednisone 20 mg tablet 40 mg PO DAILY 4 Days Qty: 8 0RF Rx Instructions: start tomorrow- 08/30/24 loratadine 10 mg tablet 10 mg PO DAILY 7 Days Qty: 7 0RF HPI General Date/Time Provider Initiated Documentation: 08/31/24 06:56 . 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 Patient was here in the emergency department on 08/29/2024. At the time of writing of this note, that previous note is in draft form and not completed. However from the discharge instructions it appears that the patient had a COPD exacerbation with an increased oxygen demand, chest x-ray was negative for any infection, laboratory workup was negative. A prescription of prednisone and azithromycin were given. That was on 08/29/2024, since then the patient's respiratory status is worsened, she called EMS secondary to notable shortness of breath. Per the son, the patient's oxygenation was at 60% on 4 L as measured by pulse oximetry. When EMS got there she was up to the 80s to 90s on 5 to 6 L. They gave her a breathing treatment, Solu-Medrol 125, and put her on the n onrebreather. She was brought to the ER for further assessment. She denies any new chest pain. She denies any vomiting or diarrhea but does admit to nausea and was given 4 mg of Zofran en route. She did have a few episodes of dry heaving per EMS but no vomiting or aspiration. Patient is notably tachypneic and working to breathe, she has no additional historical components to add. Last admission/discharge was on 07/19/2024 for COPD exacerbation. Related Data Home Medications ?Medication ?Instructions ?Recorded ?Confirmed albuterol sulfate 2.5 mg/3 mL 2.5 mg inhalation Q6H PRN 04/18/23 08/29/24 (0.083 %) solution for nebulization albuterol sulfate 90 mcg/actuation 2 puff inhalation Q4H 04/18/23 08/29/24 aerosol inhaler atorvastatin 20 mg tablet 20 mg PO DAILY 04/18/23 08/29/24 fluticasone fur. 100 mcg-umeclid 1 inh inhalation DAILY 04/18/23 08/29/24 62.5 mcg-vilant 25 mcg inhalat.powder (Trelegy Ellipta) ipratropium 0.5 mg-albuterol 3 mg 3 ml inhalation TID PRN 04/18/23 08/29/24 (2.5 mg base)/3 mL nebulization soln omeprazole 20 mg capsule,delayed 20 mg PO DAILY 04/18/23 08/29/24 release azithromycin 250 mg tablet 250 mg PO DAILY #90 tabs 04/24/24 08/29/24 guaifenesin 600 mg tablet, 1,200 mg (2 x 600 mg) PO BID #30 07/09/24 08/29/24 extended release 12 hr (Mucus tabs Relief ER) cholecalciferol (vitamin D3) 125 125 mcg PO DAILY 07/23/24 08/29/24 mcg (5,000 unit) capsule diltiazem HCl 120 mg 180 mg PO DAILY 07/23/24 08/29/24 capsule,extended release 24 hr loratadine 10 mg tablet 10 mg PO DAILY 7 days #7 tabs 08/29/24 prednisone 20 mg tablet 40 mg (2 x 20 mg) PO DAILY 4 days 08/29/24 #8 tabs Previous Rx's ?Medication ?Instructions ?Recorded azithromycin 250 mg tablet 250 mg PO DAILY #90 tabs 04/24/24 guaifenesin 600 mg tablet, 1,200 mg (2 x 600 mg) PO BID #30 07/09/24 extended release 12 hr (Mucus tabs Relief ER) loratadine 10 mg tablet 10 mg PO DAILY 7 days #7 tabs 08/29/24 prednisone 20 mg tablet 40 mg (2 x 20 mg) PO DAILY 4 days 08/29/24 #8 tabs Allergies Allergy/AdvReac Type Severity Reaction Status Date / Time pollen extracts Allergy Unknown Other (See Verified 08/31/24 07:16 Comment) sulfamethoxazole (From Allergy Unknown Other (See Verified 08/31/24 07:16 Sulfamethoxazole-Trimethoprim) Comment) trimethoprim (From Allergy Unknown Other (See Verified 08/31/24 07:16 Sulfamethoxazole-Trimethoprim) Comment) lemon Allergy Other (See Verified 08/31/24 07:16 Comment) seasonal Allergy Unknown Other (See Uncoded 08/31/24 07:16 Comment) sulfa drugs Allergy Unknown Other (See Uncoded 08/31/24 07:16 Comment) General Stated Complaint: SOB SHAREE: 2 Exam Narrative Exam Narrative: 1.Const: Well-nourished, Well-developed, appearing stated age 2.Eyes: PERRL, no conjunctival injection, and symmetrical lids. 3.ENT: Atraumatic external nose and ears. Moist MM. Neck: Symmetric, trachea midline, No thyromegaly. 4.CVS: +S1/S2, Peripheral pulses 2+ and equal in all extremities. Brisk capillary refill in all extremities. 5.RESP: Tachypneic, intercostal retractions, diffuse wheezing throughout. Scattered rhonchi. 6.GI: Soft, Nontender/Nondistended, No hepatosplenomegaly. No guarding or rebound. 7.MSK: Normocephalic/Atraumatic, Extremities w/o deformity or ttp No cyanosis or clubbing, Normal movement of all extremities 8.Skin: Warm, Dry. No rashes or lesions. 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 Sensation grossly intact, no focal neurologic deficits. 10.Psych: (AAO) x3. 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 Patient was here in the emergency department on 08/29/2024. At the time of writing of this note, that previous note is in draft form and not completed. However from the discharge instructions it appears that the patient had a COPD exacerbation with an increased oxygen demand, chest x-ray was negative for any infection, laboratory workup was negative. A prescription of prednisone and azithromycin were given. That was on 08/29/2024, since then the patient's respir atory status is worsened, she called EMS secondary to notable shortness of breath. Per the son, the patient's oxygenation was at 60% on 4 L as measured by pulse oximetry. When EMS got there she was up to the 80s to 90s on 5 to 6 L. They gave her a breathing treatment, Solu-Medrol 125, and put her on the nonrebreather. She was brought to the ER for further assessment. She denies any new chest pain. She denies any vomiting or diarrhea but does admit to nausea and was given 4 mg of Zofran en route. She did have a few episodes of dry heaving per EMS but no vomiting or aspiration. Patient is notably tachypneic and working to breathe, she has no additional historical components to add. Last admission/discharge was on 07/19/2024 for COPD exacerbation. Exam demonstrates tachypneic female struggling to breathe with increased intercostal retractions. Diffuse wheezes throughout. No pitting edema in lower extremities. Concern for COPD exacerbation, pneumonia, less likely cardiac etiology. Will give 125 Solu-Medrol, given additional breathing treatment, give 2 g of IV mag as push secondary to the notable wheezes that she still has and her notable work of breathing, while being on prescribed prednisone. Will monitor closely and reassess. Patient will be started on BiPAP. Patient will be signed out to my colleague Dr. Booth for follow-up on labs and imaging. Quality:[facility] Health Related Social Needs: No Data to Display Critical Care Time Critical Care Time Critical Care Time: Yes Total Critical Care Time: 45 Attestation: Upon my evaluation, this patient had a high probability of imminent or life- threatening deterioration, which required my direct attention, intervention, and personal management. I have personally provided 45 minutes of critical care time exclusive of time spent on separately billable procedures. Time includes review of laboratory data, radiology results, discussion with consultants, and monitoring for potential decompensation. Interventions were performed as documented. [facility] All Active Problems (Updated 08/31/24 @ 07:21 by Peter Walden DO) Acute exacerbation of chronic obstructive pulmonary disease (COPD) (Acute) Respiratory failure, unspecified with hypercapnia (Acute) COPD exacerbation (Acute) Dyspnea (Acute) At risk for falling (Acute) ACP (advance care planning) (Acute) Impaired instrumental activities of daily living (Acute) Acute bronchitis with chronic obstructive pulmonary disease (COPD) (Acute) COPD exacerbation (Acute) Pleural effusion (Acute) Hypoxic respiratory failure (Chronic) COPD (chronic obstructive pulmonary disease) (Chronic) Tear film insufficiency (Acute) Palpitations (Acute) Osteoporosis (Chronic) Nicotine dependence (Acute) Hyperlipidemia (Acute) Hearing loss (Acute) Fluid in endometrial cavity (Acute) Exposure to hepatitis B (Acute) COPD, severe (Acute) Closed fracture of tarsal and metatarsal bones (Acute) Closed fracture of left wrist (Acute) Allergic rhinitis (Acute) Adhesive capsulitis of shoulder (Acute) Acute [id number] elevation myocardial infarction (Acute) Abnormal weight loss (Acute) Abnormal findings on diagnostic imaging of liver and biliary tract (Acute) Medical History Anemia Hypertension H/O mammogram 08/30/11 H/O echocardiogram 07/02/21 Urinary tract infectious disease Genitourinary symptoms Chronic obstructive pulmonary disease with (acute) lower respiratory infection Surgical History H/O tubal ligation 1974 H/O repair of rotator cuff bilateral shoulders,04/17/03 History of colonoscopy 02/04/19 Family History Mother Cancer Diabetes Hypertension Father Myocardial infarction Social History Smoking/Tobacco Use Status: Current-Occasional Tobacco Type: cigarettes Years smoked: 50 Tobacco: How many years used: 60 Smoking risk assessment performed?: Yes Alcohol Intake: former Drug use: Never Substance use type: does not use Housing: house Do you feel safe at home: Yes Do you feel safe in your relationship?: Yes Additional Social history: Current tobacco user. Use:4-5 cigarettes per day. Started at age 17.
[2024-08-31 07:08] LABS: BE (Venous) 7 mmol/L (-2-3); HCO3 (Venous) 34 mmol/L (23-28); O2 Sat (Venous) 98 %; TCO2 (Venous) 33 mmol/L (24-29); pH (Venous) 7.24 (7.31-7.41); pO2 (Venous) 111 mmHg
[2024-08-31] MEDS: Ondansetron 4 MG/2 ML VIAL (07:10)
[2024-08-31] MEDS: MAGNESIUM SULFATE 2 GM/50 ML BAG IV_INF (07:10)
[2024-08-31 07:12] LABS: Abs Immature Grans 0.08 10^3/uL (0.0-0.06); Absolute Eosinophil Count 0.27 10^3/uL (0.0-0.7); Absolute Neutrophil Count 14.31 10^3/uL (1.2-6.7); Basophils % 0.2 %; Eosinophils % 1.3 %; HCT 32.2 % (36.0-46.0); HGB 9.7 g/dL (11.2-15.7); Immature Grans % 0.4 %; Lymphocytes % 22.4 %; MCHC 30.1 % (32.0-36.0); MCV 86 fL (80-95); Monocytes % 7.7 %; Platelet Count 474 10^3/uL (130-400); RBC 3.73 10^6/uL (3.93-5.22); RDW 14.4 % (11.7-14.6); RDW-SD 44.8 fL; WBC 21.05 10^3/uL (4.4-10.8)
[2024-08-31 07:15] LABS: pCO2 (Venous) 79 mmHg (41-51)
[2024-08-31 07:17] LABS: Absolute Basophil Count 0.04 10^3/uL (0.0-0.2); Absolute Lymphocyte Count 4.72 10^3/uL (1.2-3.4); Absolute Monocyte Count 1.62 10^3/uL (0.1-0.8)
[2024-08-31] MEDS: Albuterol/Ipratropium 3 ML UPD VIAL UPD (07:20)
[2024-08-31 07:22] LABS: PTT Activated 20.1 sec (20.6-30.2); Prothrombin Time 9.7 sec (9.1-11.1)
[2024-08-31 07:35] LABS: Diff Comment Agrees w/ Instrument; RBC Morphology Normal
[2024-08-31 07:38] LABS: ALT 34 U/L (14-59); AST 27 U/L (15-37); Alkaline Phosphatase 84 U/L (46-116); Anion Gap 3.9 mmol/L (3-11); BUN 34 mg/dL (7-18); Bilirubin, Total 0.2 mg/dL (0.2-1.0); CO2 36.1 mmol/L (21.0-32.0); CREATININE 0.6 mg/dL (0.55-1.02); Calcium 9.7 mg/dL (8.5-10.1); Chloride 105 mmol/L (98-107); Estimated GFR 92.39 (mL/min/1.73m2); Glucose 162 mg/dL (74-106); NT-proBNP 119 pg/mL (<300); Sodium 145 mmol/L (136-145); Total Protein 7.3 g/dL (6.4-8.2); Troponin I 5 ng/L (<or=51)
[2024-08-31] MEDS: LORazepam 20 MG/10 ML VIAL IVP (07:46)
[2024-08-31] MEDS: Metoclopramide 10 MG/2 ML VIAL (07:47)
--- NOTE | 2024-08-31 07:50 | RESPIRATORY ---
Addendum entered by Jarad Zhang 08/31/24 07:53: Pt takes Trelegy inhaler daily at home. Does not have inhaler with her and reports she did not take it yet this morning. Original Note: Pt placed on BiPAP on arrival from EMS. Pt SOB with increased WOB. EMS noted CO2 during transport in the 60s. Pt has history of COPD and wears 1.5L - 2L O2 at baseline through [facility], with spare tanks through [email or web address]. Son Alok to bring in [employer] concentrator for patient's transport home to [place] with him when she is ready.
[2024-08-31 07:59] LABS: COVID-19 PCR Negative (Negative); Influenza A PCR Negative (Negative); Influenza B PCR Negative (Negative); RSV PCR Negative (Negative)
[2024-08-31 08:00] LABS: Source Nasopharynx
--- NOTE | 2024-08-31 08:09 | ED.PROG_ITS ---
Date of service: 08/31/24 Time of Service: 08:09 Medical Decision Making I received signout on this 79-year-old female who arrives via EMS in the setting of acute COPD exacerbation. Her prehospital oxygen saturation was 60% on her home 1 to 2 L. She is on rescue BiPAP in the setting of her hypoxia and hyperca rbic respiratory failure. She received steroids. She has been on outpatient azithromycin. 10:57 AM Patient's repeat venous blood gas showed improvement in her hypercarbia and acidemia. She was weaned to nasal cannula with respiratory therapy. I was in touch with Dr. García who graciously agreed to accept the patient for hospitalization. Quality:[facility] Health Related Social Needs: No Data to Display Discharge Plan Disposition Patient Disposition: Admit to [facility] Discharge Details Chief Complaint: SOB Clinical Impression: Respiratory failure, unspecified with hypercapnia, Acute exacerbation of c hronic obstructive pulmonary disease (COPD) Primary Care Provider: Mechelle Sprague ED Provider: Quinn Booth [place] Meds and New Rx's Prescriptions: No Action azithromycin 250 mg tablet 250 mg PO DAILY Qty: 90 3RF Patient Comments: three times a week diltiazem HCl 120 mg capsule,extended release 24hr 180 mg PO DAILY Patient Comments: patient reports increase from 120 to 180 cholecalciferol (vitamin D3) 125 mcg (5,000 unit) capsule 125 mcg PO DAILY ipratropium-albuterol 0.5 mg-3 mg(2.5 mg base)/3 mL solution for nebulization 3 ml inhalation TID PRN albuterol sulfate 90 mcg/actuation HFA aerosol inhaler 2 puff inhalation Q4H albuterol sulfate 2.5 mg /3 mL (0.083 %) solution for nebulization 2.5 mg inhalation Q6H PRN atorvastatin 20 mg tablet 20 mg PO DAILY omeprazole 20 mg capsule,delayed release(DR/EC) 20 mg PO DAILY Trelegy Ellipta 100-62.5-25 mcg blister with device 1 inh inhalation DAILY guaifenesin [Mucus Relief ER] 600 mg Tablet Extended Release 12hr 1,200 mg PO BID Qty: 30 0RF prednisone 20 mg tablet 40 mg PO DAILY 4 Days Qty: 8 0RF Rx Instructions: start tomorrow- 08/30/24 loratadine 10 mg tablet 10 mg PO DAILY 7 Days Qty: 7 0RF
--- NOTE | 2024-08-31 08:29 | DI.RAD_ITS ---
Exam(s) XR PORTABLE CHEST AP EXAM: XR PORTABLE CHEST AP CLINICAL HISTORY: SOB, cough TECHNIQUE: 2D digital imaging was performed of the chest. One image was obtained. An AP view was ob tained. COMPARISON: CR XR CHEST 2V PA LATERAL from 08/29/2024 FINDINGS: MEDIASTINUM: Normal. HEART: Normal. PULMONARY VASCULATURE: Normal. LUNGS: The lungs are hyperinflated with flattened diaphragms suggesting underlying COPD. No focal co nsolidating infiltrates are present. PLEURAL SPACE: No pleural effusion or pneumothorax. BONE:Within normal limits for the patient's age. OTHER FINDINGS:Normal. IMPRESSION: 1. Hyperexpansion of the lungs suggesting underlying COPD. 2. No focal consolidating infiltrates. DATA REPOSITORY: RADIATION DOSE DELIVERED:
[2024-08-31 08:31] LABS: Troponin I 7 ng/L (<or=51)
[2024-08-31 08:46] LABS: BE (Venous) 7 mmol/L (-2-3); HCO3 (Venous) 33 mmol/L (23-28); O2 Sat (Venous) 79 %; TCO2 (Venous) 32 mmol/L (24-29); pH (Venous) 7.32 (7.31-7.41); pO2 (Venous) 48 mmHg
[2024-08-31 08:47] LABS: pCO2 (Venous) 64 mmHg (41-51)
[2024-08-31 10:46] LABS: Troponin I 17 ng/L (<or=51)
--- NOTE | 2024-08-31 12:15 | HPE_ITS ---
Date of service: 08/31/24 Time of Service: 12:16 Assessment and Plan Assessment and plan (1) Respiratory failure, unspecified with hypercapnia: Status: Acute Assessment and plan: Due to COPD exacerbation no infiltrates on x-ray Continue steroids scheduled updrafts, home inhalers Incentive spirometer pulmonary toileting (2) Acute exacerbation of chronic obstructive pulmonary disease (COPD): Status: Acute Assessment and plan: Continue treatment with doxycycline and steroids (3) Anemia: Status: Chronic Assessment and plan: Stable Iron deficient iron supplementation (4) Hypertension: Status: Chronic Assessment and plan: Blood pressure is stable continue monitoring continue diltiazem History of Present Illness History of Present Illness Chief Complaint: shortness of breath Narrative: This is a 79-year-old female with a past medical history of 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 Patient was here in the emergency department on 08/29/2024, discharged on COPD exacerbation and given a prescription of prednisone and azithromycin were given. Reportedly skilled intervention taking as prescribed respiratory status continued to decline. Workup in the emergency department does show acute on chronic respiratory failure due to COPD exacerbation. She received doxycycline and steroids and will be admitted to hospitalist services for further management failed outpatient treatment for COPD exacerbation Review of Systems All systems reviewed & are unremarkable except as noted in HPI and below PFSH All Active Problems (Updated 08/31/24 @ 15:25 by Gabriela Lama NP) Hypertension (Chronic) Anemia (Chronic) Acute exacerbation of chronic obstructive pulmonary disease (COPD) (Acute) Respiratory failure, unspecified with hypercapnia (Acute) COPD exacerbation (Acute) Dyspnea (Acute) At risk for falling (Acute) ACP (advance care planning) (Acute) Impaired instrumental activities of daily living (Acute) Acute bronchitis with chronic obstructive pulmonary disease (COPD) (Acute) COPD exacerbation (Acute) Pleural effusion (Acute) Hypoxic respiratory failure (Chronic) COPD (chronic obstructive pulmonary disease) (Chronic) Tear film insufficiency (Acute) Palpitations (Acute) Osteoporosis (Chronic) Nicotine dependence (Acute) Hyperlipidemia (Acute) Hearing loss (Acute) Fluid in endometrial cavity (Acute) Exposure to hepatitis B (Acute) COPD, severe (Acute) Closed fracture of tarsal and metatarsal bones (Acute) Closed fracture of left wrist (Acute) Allergic rhinitis (Acute) Adhesive capsulitis of shoulder (Acute) Acute hdq-DM-lnyqkyt elevation myocardial infarction (Acute) Abnormal weight loss (Acute) Abnormal findings on diagnostic imaging of liver and biliary tract (Acute) Medical History Anemia Hypertension H/O mammogram 08/30/11 H/O echocardiogram 07/02/21 Urinary tract infectious disease Genitourinary symptoms Chronic obstructive pulmonary disease with (acute) lower respiratory infection Surgical History H/O tubal ligation 1974 H/O repair of rotator cuff bilateral shoulders,04/17/03 History of colonoscopy 02/04/19 Family History Mother Cancer Diabetes Hypertension Father Myocardial infarction Social History Smoking/Tobacco Use Status: Current-Occasional Tobacco Type: cigarettes Years smoked: 50 Tobacco: How many years used: 60 Smoking risk assessment performed?: Yes Alcohol Intake: former Drug use: Never Substance use type: does not use Housing: house Do you feel safe at home: Yes Do you feel safe in your relationship?: Yes Additional Social history: Current tobacco user. Use:4-5 cigarettes per day. Started at age 17. Meds Allergies and Home Medications Allergies Allergy/AdvReac Type Severity Reaction Status Date / Time pollen extracts Allergy Unknown Other (See Verified 08/31/24 07:16 Comment) sulfamethoxazole (From Allergy Unknown Other (See Verified 08/31/24 07:16 Sulfamethoxazole-Trimethoprim) Comment) trimethoprim (From Allergy Unknown Other (See Verified 08/31/24 07:16 Sulfamethoxazole-Trimethoprim) Comment) lemon Allergy Other (See Verified 08/31/24 07:16 Comment) seasonal Allergy Unknown Other (See Uncoded 08/31/24 07:16 Comment) sulfa drugs Allergy Unknown Other (See Uncoded 08/31/24 07:16 Comment) Home Medications ?Medication ?Instructions ?Recorded ?Confirmed ?Type albuterol sulfate 2.5 mg/3 mL 2.5 mg inhalation Q6H PRN 04/18/23 08/31/24 History (0.083 %) solution for nebulization albuterol sulfate 90 mcg/actuation 2 puff inhalation Q4H 04/18/23 08/31/24 History aerosol inhaler atorvastatin 20 mg tablet 20 mg PO DAILY 04/18/23 08/31/24 History fluticasone fur. 100 mcg-umeclid 1 inh inhalation DAILY 04/18/23 08/31/24 History 62.5 mcg-vilant 25 mcg inhalat.powder (Trelegy Ellipta) ipratropium 0.5 mg-albuterol 3 mg 3 ml inhalation TID PRN 04/18/23 08/31/24 History (2.5 mg base)/3 mL nebulization soln omeprazole 20 mg capsule,delayed 20 mg PO DAILY 04/18/23 08/31/24 History release azithromycin 250 mg tablet 250 mg PO DAILY #90 tabs 04/24/24 08/31/24 Rx guaifenesin 600 mg tablet, 1,200 mg (2 x 600 mg) PO BID #30 07/09/24 08/31/24 Rx extended release 12 hr (Mucus tabs Relief ER) cholecalciferol (vitamin D3) 125 125 mcg PO DAILY 07/23/24 08/31/24 History mcg (5,000 unit) capsule loratadine 10 mg tablet 10 mg PO DAILY 7 days #7 tabs 08/29/24 08/31/24 Rx prednisone 20 mg tablet 40 mg (2 x 20 mg) PO DAILY 4 days 08/29/24 08/31/24 Rx #8 tabs diltiazem HCl 180 mg 180 mg PO DAILY 08/31/24 08/31/24 History capsule,extended release 24 hr Exam Narrative Exam Narrative: frail, chronically ill female of stated age. thin, awake alert oriented, no focal deficits. head atraumatic normocephalic, normal facial appearance. oral mucosa moist, no exudate. respirations even and labored. expiratory wheeze throughout, bases diminished. heart regular rate and rhythm, extremity with no peripheral edema, strength equal bilaterally, no rashes or lesion. Results Labs 08/31/24 07:00 08/31/24 07:00 Labs: Laboratory Results - last 24 hr 08/31/24 08/31/24 08/31/24 07:00 07:07 08:06 WBC 21.05 H RBC 3.73 L Hgb 9.7 L Hct 32.2 L MCV 86 MCH 26.0 L MCHC 30.1 L RDW 14.4 Plt Count 474 H MPV 10.0 Immature Gran % 0.4 Neutrophils % 68.0 Lymphocytes % 22.4 Monocytes % 7.7 Eosinophils % 1.3 Basophils % 0.2 Nucleated RBC % 0.0 Absolute Neutrophils 14.31 H Absolute Lymphocytes 4.72 H Absolute Monocytes 1.62 H Absolute Eosinophils 0.27 Absolute Basophils 0.04 RBC Morphology Normal PT 9.7 INR 1.0 APTT 20.1 L VBG pH 7.24 L VBG pCO2 79 H* VBG pO2 111 VBG HCO3 34 H VBG Total CO2 33 H VBG O2 Saturation 98 VBG Base Excess 7 H Sodium 145 Potassium 4.0 Chloride 105 Carbon Dioxide 36.1 H Anion Gap 3.9 BUN 34 H Creatinine 0.6 Est GFR (CKD-EPI 2020) 92.39 Glucose 162 H Calcium 9.7 Total Bilirubin 0.2 AST 27 ALT 34 Alkaline Phosphatase 84 Troponin I 5 7 NT-Pro-B Natriuret Pep 119 Total Protein 7.3 Albumin 4.0 COVID-19 Source Nasopharynx SARS-CoV-2 (PCR) Negative Influenza Type A (PCR) Negative Influenza Type B (PCR) Negative RSV (PCR) Negative 08/31/24 08/31/24 08:43 10:22 WBC RBC Hgb Hct MCV MCH MCHC RDW Plt Count MPV Immature Gran % Neutrophils % Lymphocytes % Monocytes % Eosinophils % Basophils % Nucleated RBC % Absolute Neutrophils Absolute Lymphocytes Absolute Monocytes Absolute Eosinophils Absolute Basophils RBC Morphology PT INR APTT VBG pH 7.32 VBG pCO2 64 H* VBG pO2 48 VBG HCO3 33 H VBG Total CO2 32 H VBG O2 Saturation 79 VBG Base Excess 7 H Sodium Potassium Chloride Carbon Dioxide Anion Gap BUN Creatinine Est GFR (CKD-EPI 2020) Glucose Calcium Total Bilirubin AST ALT Alkaline Phosphatase Troponin I 17 NT-Pro-B Natriuret Pep Total Protein Albumin COVID-19 Source SARS-CoV-2 (PCR) Influenza Type A (PCR) Influenza Type B (PCR) RSV (PCR) Last Vital Signs Temp 36.6 C 08/31/24 09:03 Pulse 89 08/31/24 11:31 Resp 20 08/31/24 11:31 BP 115/47 L 08/31/24 11:31 Pulse Ox 97 08/31/24 11:31 Time Spent Time spent with Patient: 55-74 minutes Time was spent: preparing to see the patient(eg.review tests), obtaining and/or reviewing separately otained hiistory, ordering medications,tests, procedures, indepentently interpreting results and counseling the patient
--- NOTE | 2024-08-31 12:37 | W.PC.ACHO ---
Registration Status: Primary Language: Preferred Language: ED Information & Data Chief Complaint SOB 08/31/24 07:21 Triage Note patient here with worsening 08/31/24 06:55 of sob this morning. on 4 lpm bumped to 6. Medical / Surgical History (Last Reviewed 07/19/24 @ 12:52 by Elvia Larsen NP) Anemia Hypertension H/O mammogram H/O echocardiogram Urinary tract infectious disease Genitourinary symptoms Chronic obstructive pulmonary disease with (acute) lower respiratory infection (Last Reviewed 07/19/24 @ 12:52 by Elvia Larsen NP) H/O tubal ligation H/O repair of rotator cuff History of colonoscopy Most Recent Vital Signs Temperature 36.6 C 08/31/24 09:03 Temperature Source Oral 08/31/24 09:03 Pulse 86 08/31/24 12:31 Pulse 86 08/31/24 12:31 Respiratory Rate 21 08/31/24 12:31 Respiratory Effort Short of Breath, Labored 08/31/24 08:32 Respiratory Depth Shallow 08/31/24 08:32 Respiratory Pattern Tachypnea 08/31/24 08:32 Blood Pressure 115/58 L 08/31/24 12:31 Blood Pressure Mean 72 08/31/24 12:31 Pulse Oximetry 95 08/31/24 12:31 Oxygen Delivery Method Nasal Cannula 08/31/24 09:01 Oxygen Flow Rate 2 08/31/24 09:01 Fraction of Inspired Oxygen (FIO2) 28 08/31/24 08:59 Allergies pollen extracts Allergy (Unknown, Verified 08/31/24 07:16) Other (See Comment) sulfamethoxazole (From Sulfamethoxazole-Trimethoprim) Allergy (Unknown, Verified 08/31/24 07:16) Other (See Comment) trimethoprim (From Sulfamethoxazole-Trimethoprim) Allergy (Unknown, Verified 08/31/24 07:16) Other (See Comment) lemon Allergy (Verified 08/31/24 07:16) Other (See Comment) seasonal Allergy (Unknown, Uncoded 08/31/24 07:16) Other (See Comment) sulfa drugs Allergy (Unknown, Uncoded 08/31/24 07:16) Other (See Comment) Precautions Isolation Standard precaution 08/31/24 07:14 IV IV Catheter Type [Right Peripheral IV Forearm] IV Catheter Type [Left Forearm Saline Lock ] IV Catheter Gauge [Right 20 Forearm] IV Catheter Gauge [Left 20 Forearm] Diet Orders Category Date Time Status Regular/Normal [DIET] Nutrition 08/31/24 Lunch Active Diagnostics 08/31/24 08/31/24 08/31/24 Range/Units 10:22 08:43 08:06 WBC (4.4-10.8) 10^3/uL RBC (3.93-5.22) 10^6/uL Hgb (11.2-15.7) g/dL Hct (36.0-46.0) % MCV (80-95) fL MCH (27.0-33.0) pg MCHC (32.0-36.0) % RDW (11.7-14.6) % Plt Count (130-400) 10^3/uL MPV (8.0-11.0) fL Immature Gran % % Neutrophils % % Lymphocytes % % Monocytes % % Eosinophils % % Basophils % % Nucleated RBC % (0.0-0.3) % Absolute Neutrophils (1.2-6.7) 10^3/uL Absolute Lymphocytes (1.2-3.4) 10^3/uL Absolute Monocytes (0.1-0.8) 10^3/uL Absolute Eosinophils (0.0-0.7) 10^3/uL Absolute Basophils (0.0-0.2) 10^3/uL RBC Morphology PT (9.1-11.1) sec INR (0.9-1.1) APTT (20.6-30.2) sec VBG pH 7.32 (7.31-7.41) VBG pCO2 64 H* (41-51) mmHg VBG pO2 48 mmHg VBG HCO3 33 H (23-28) mmol/L VBG Total CO2 32 H (24-29) mmol/L VBG O2 Saturation 79 % VBG Base Excess 7 H (-2-3) mmol/L Sodium (136-145) mmol/L Potassium (3.5-5.1) mmol/L Chloride (98-107) mmol/L Carbon Dioxide (21.0-32.0) mmol/L Anion Gap (3-11) mmol/L BUN (7-18) mg/dL Creatinine (0.55-1.02) mg/dL Est GFR (CKD-EPI 2020) (mL/min/1.73m2) Glucose (74-106) mg/dL Calcium (8.5-10.1) mg/dL Total Bilirubin (0.2-1.0) mg/dL AST (15-37) U/L ALT (14-59) U/L Alkaline Phosphatase (46-116) U/L Troponin I 17 7 (<or=51) ng/L NT-Pro-B Natriuret Pep (<300) pg/mL Total Protein (6.4-8.2) g/dL Albumin (3.4-5.0) g/dL COVID-19 Source SARS-CoV-2 (PCR) (Negative) Influenza Type A (PCR) (Negative) Influenza Type B (PCR) (Negative) RSV (PCR) (Negative) 08/31/24 08/31/24 Range/Units 07:07 07:00 WBC 21.05 H (4.4-10.8) 10^3/uL RBC 3.73 L (3.93-5.22) 10^6/uL Hgb 9.7 L (11.2-15.7) g/dL Hct 32.2 L (36.0-46.0) % MCV 86 (80-95) fL MCH 26.0 L (27.0-33.0) pg MCHC 30.1 L (32.0-36.0) % RDW 14.4 (11.7-14.6) % Plt Count 474 H (130-400) 10^3/uL MPV 10.0 (8.0-11.0) fL Immature Gran % 0.4 % Neutrophils % 68.0 % Lymphocytes % 22.4 % Monocytes % 7.7 % Eosinophils % 1.3 % Basophils % 0.2 % Nucleated RBC % 0.0 (0.0-0.3) % Absolute Neutrophils 14.31 H (1.2-6.7) 10^3/uL Absolute Lymphocytes 4.72 H (1.2-3.4) 10^3/uL Absolute Monocytes 1.62 H (0.1-0.8) 10^3/uL Absolute Eosinophils 0.27 (0.0-0.7) 10^3/uL Absolute Basophils 0.04 (0.0-0.2) 10^3/uL RBC Morphology Normal PT 9.7 (9.1-11.1) sec INR 1.0 (0.9-1.1) APTT 20.1 L (20.6-30.2) sec VBG pH 7.24 L (7.31-7.41) VBG pCO2 79 H* (41-51) mmHg VBG pO2 111 mmHg VBG HCO3 34 H (23-28) mmol/L VBG Total CO2 33 H (24-29) mmol/L VBG O2 Saturation 98 % VBG Base Excess 7 H (-2-3) mmol/L Sodium 145 (136-145) mmol/L Potassium 4.0 (3.5-5.1) mmol/L Chloride 105 (98-107) mmol/L Carbon Dioxide 36.1 H (21.0-32.0) mmol/L Anion Gap 3.9 (3-11) mmol/L BUN 34 H (7-18) mg/dL Creatinine 0.6 (0.55-1.02) mg/dL Est GFR (CKD-EPI 2020) 92.39 (mL/min/1.73m2) Glucose 162 H (74-106) mg/dL Calcium 9.7 (8.5-10.1) mg/dL Total Bilirubin 0.2 (0.2-1.0) mg/dL AST 27 (15-37) U/L ALT 34 (14-59) U/L Alkaline Phosphatase 84 (46-116) U/L Troponin I 5 (<or=51) ng/L NT-Pro-B Natriuret Pep 119 (<300) pg/mL Total Protein 7.3 (6.4-8.2) g/dL Albumin 4.0 (3.4-5.0) g/dL COVID-19 Source Nasopharynx SARS-CoV-2 (PCR) Negative (Negative) Influenza Type A (PCR) Negative (Negative) Influenza Type B (PCR) Negative (Negative) RSV (PCR) Negative (Negative) Intake and Output - 24 Hour Total 08/31/24 06:51 thru 08/31/24 09:15 Intake Total 60 Balance 60 Weight 36.1 kg Intake: IV 60 Falls Risk Assessment History of Falls No History 08/31/24 07:13 Contributing Factors No Factors 08/31/24 07:13 Ambulatory Aids Independent 08/31/24 07:13 Tubes/Lines W/no contributing factors 08/31/24 07:13 Gait Evaluation No gait disturbance 08/31/24 07:13 Cognition No cognitive impairment 08/31/24 07:13 Fall Total Score 10 08/31/24 07:13 Level of Risk Standard/Low Risk 08/31/24 07:13 Notes 08/31/24 07:50 Respiratory by Jarad Zhang Addendum entered by Jarad Zhang 08/31/24 07:53: Pt takes Trelegy inhaler daily at home. Does not have inhaler with her and reports she did not take it yet this morning. Original Note: Pt placed on BiPAP on arrival from EMS. Pt SOB with increased WOB. EMS noted CO2 during transport in the 60s. Pt has history of COPD and wears 1.5L - 2L O2 at baseline through [employer], with spare tanks through [employer]. Son Alok to bring in [employer] concentrator for patient's transport home to [place] with him when she is ready. Initialized on 08/31/24 07:50 - END OF NOTE v v v v v v v v v Sending and/or Receiving Nurses: Please use comment section below to note any information pertinent to the patient hand-off not included above. Information / Comments: pt called EMS due to O2 at home being 60% on 2L at baseline. Pt placed on rescue bypap, recovered well, now on 2L NC at 95%. Expiratory wheezing, A&Ox4, given ativan, mag, zofran and reglan in ER for anxiety and nausea. since resolved. Elevated WBC, 20G RFA, doesnt use assistive devices at baseline, reccomends stand by assist due to fatigue, SOB w/ exertion, and frail body. AP RN Report received from: Carmela BLACK in ER at [id number]
[2024-08-31] MEDS: Doxycycline Hyclate 100 MG CAP PO ×2 (13:05→20:13)
[2024-08-31] MEDS: Budesonide/Formoterol 80/4.5 6.9 GM 60 PUFF INH IH (19:58)
[2024-08-31] MEDS: guaiFENesin 600 MG TABCR 1200 MG PO (20:13)
[2024-08-31] MEDS: Melatonin 3 MG TAB 6 MG PO (20:13)
[2024-09-01 07:11] VITALS: BP 124/61; PULSE 74; RESP 18; TEMP 36.7; O2SAT 96
[2024-09-01] MEDS: Omeprazole 20 MG CAPCR PO (07:35)
[2024-09-01] MEDS: guaiFENesin 600 MG TABCR 1200 MG PO ×2 (07:35→19:26)
[2024-09-01] MEDS: Loratidine 10 MG TAB PO (07:35)
[2024-09-01] MEDS: predniSONE 20 MG TAB 40 MG PO (07:35)
[2024-09-01] MEDS: Ferrous Sulfate 325 MG TAB PO (07:35)
[2024-09-01] MEDS: Atorvastatin 20 MG TAB PO (07:35)
[2024-09-01] MEDS: dilTIAZem CD 180 MG CAPCR PO (07:36)
[2024-09-01] MEDS: Enoxaparin 40 MG/0.4 ML SYR SC (07:36)
[2024-09-01] MEDS: Cholecalciferol (Vitamin D3) 1,000 UNIT TAB 5000 UNITS PO (07:36)
[2024-09-01] MEDS: Doxycycline Hyclate 100 MG CAP PO ×2 (07:36→19:26)
[2024-09-01] MEDS: Budesonide/Formoterol 80/4.5 6.9 GM 60 PUFF INH IH ×2 (08:39→19:46)
[2024-09-01] MEDS: Tiotropium Bromide-Respimat 10 PUFF INH 2 PUFF IH (08:40)
[2024-09-01 08:42] VITALS: O2SAT 92
--- NOTE | 2024-09-01 09:23 | PDOC.CMIN ---
Date of service: 09/01/24 Time of Service: 09:25 Care Management Initial Assmt Initial Assessment Reason for Hospitalization: Hypoxic resp failure, copd exac Functional Status/Living Situation Patient Presentation: Patricia was sitting up in bed when CM arrived. She was pleasant and willing to engage in conversation. Patricia is currently living in [place] with her son, and daughter in law; she states that this will now be a permanent placement for her, as she is reportedly no longer safe to live alone. Patricia states she receives services through [employer], which is very helpful for her. Her RN aide through them, comes 3x weekly and assists with her requests of new DME. She states she currently has obtained a chair lift, over the bed table, hospital bed, life alert, O2 tanks and concentrators (for when she needs it, but reports she does not actively use this), FWW, and a commode. She is also interested in obtaining an air purifier. Her new case assembler through [facility] is Najma Kaur. Kym will be evaluated by PT, per report and will likely be a resumption of PT/RN. CM will continue to follow. Town of Residence: [place] Resides with: Child (Son Osvaldo and daughter in law. ) Significant Other/Family: Local Caregiver/Guardian: Osvaldo and his provide care and support at their home. Natural Supports: Family - Patricia has three children Employment Status: Retired Instrumental Activities of Daily Living (ADLs): Independent Medications Medication Management: No Issues/Barriers identified Physical Functioning/Mobility Assistive Device: FWW- doesn't use often Advance Directives Advance Directives: Do you have an Advance Directive: N 04/15/24 15:04 AD On File at [facility]: N 04/15/24 12:20 Date Asked 07/25/24 08/29/24 10:52 AD Date Reviewed COLST On File at [facility] COLST Date Scanned Code Status Resuscitation Status DNR/DNI Portal Pt does not currently have a portal and education provided: Yes Insurance Coverage/Financial Issues Insurance: Medicare Part A & B Care Team Visit Care Team Role Provider Type Gabriela Lama NP NURSE PRACTITIONER Mechelle Sprague Primary Care Provider ADV PRACTICE REGISTERED NURSE Quinn Booth MD Emergency Provider [facility] STAFF PHYSICIAN Quinn García MD Admit Provider [facility] STAFF PHYSICIAN Attending Provider Discharge Potential Discharge Needs: PCP F/U Appt Anticipated Barriers to Discharge: None Identified Patient/Family Education Needs: Review discharge instructions, discuss Ask Me Three Transportation: Private vehicle Plan: Anticipate Patricia will return home once medically cleared. She will be a resumption of HH RN, PT, and is followed by palliative outpatient. Her son will drive her home via private vehicle. She will follow up with her PCP and discharge plan of care. CM will continue to follow. Social Determinants of Health Screening Social Determinants of health last assessed in clinic: 09/01/24 Will the Patient Participate in the Screening?: Yes Do you worry about having a steady place to live?: no Problems where you live: no known problems In the past 12 months, have you had to go without electric, gas, oil or water in your home?: no 1. Within the past 12 months, we worried whether our food would run out before we got money to buy more.: Never true 2. Within the past 12 months, the food we bought just didn't last and we didn't have money to get more.: Never true Has lack of transportation kept you from medical appointments or from doing things needed for daily living?: no Has anyone in your life made you feel unsafe or unsupported?: no How hard is it for you to pay for the very basics like food, housing, medical care, and heating? Would you say it is:: Not hard at all Do you want help finding or keeping work or a job?: I do not need or want help If for any reason you need help with day-to-day activities such as bathing, preparing meals, shopping, managing finances, etc., do you get the help you need?: I don?t need any help How often do you feel lonely or isolated from those around you?: Never Do you speak a language other than Yakut at home?: No Does the patient want assistance with any of the above?: No PFSH All Active Problems (Updated 08/31/24 @ 15:25 by Gabriela Lama NP) Hypertension (Chronic) Anemia (Chronic) Acute exacerbation of chronic obstructive pulmonary disease (COPD) (Acute) Respiratory failure, unspecified with hypercapnia (Acute) COPD exacerbation (Acute) Dyspnea (Acute) At risk for falling (Acute) ACP (advance care planning) (Acute) Impaired instrumental activities of daily living (Acute) Acute bronchitis with chronic obstructive pulmonary disease (COPD) (Acute) COPD exacerbation (Acute) Pleural effusion (Acute) Hypoxic respiratory failure (Chronic) COPD (chronic obstructive pulmonary disease) (Chronic) Tear film insufficiency (Acute) Palpitations (Acute) Osteoporosis (Chronic) Nicotine dependence (Acute) Hyperlipidemia (Acute) Hearing loss (Acute) Fluid in endometrial cavity (Acute) Exposure to hepatitis B (Acute) COPD, severe (Acute) Closed fracture of tarsal and metatarsal bones (Acute) Closed fracture of left wrist (Acute) Allergic rhinitis (Acute) Adhesive capsulitis of shoulder (Acute) Acute urk-BE-szgztsc elevation myocardial infarction (Acute) Abnormal weight loss (Acute) Abnormal findings on diagnostic imaging of liver and biliary tract (Acute) Medical History Anemia Hypertension H/O mammogram 08/30/11 H/O echocardiogram 07/02/21 Urinary tract infectious disease Genitourinary symptoms Chronic obstructive pulmonary disease with (acute) lower respiratory infection Surgical History H/O tubal ligation 1974 H/O repair of rotator cuff bilateral shoulders,04/17/03 History of colonoscopy 02/04/19 Family History Mother Cancer Diabetes Hypertension Father Myocardial infarction Social History Smoking/Tobacco Use Status: Current-Occasional Tobacco Type: cigarettes Years smoked: 50 Tobacco: How many years used: 60 Smoking risk assessment performed?: Yes Alcohol Intake: former Drug use: Never Substance use type: does not use Housing: house Do you feel safe at home: Yes Do you feel safe in your relationship?: Yes Additional Social history: Current tobacco user. Use:4-5 cigarettes per day. Started at age 17. Readmission Within the Past 30 Days Yes or No: No
--- NOTE | 2024-09-01 11:44 | W.PM.PROGNOT ---
Date of Service Date of service: 09/01/24 Time of Service: 11:44 Assessment and Plan Assessment and plan (1) Respiratory failure, unspecified with hypercapnia: Status: Acute Assessment and plan: Due to COPD exacerbation no infiltrates on x-ray Continue steroids scheduled updrafts, home inhalers Incentive spirometer pulmonary toileting (2) Acute exacerbation of chronic obstructive pulmonary disease (COPD): Status: Acute Assessment and plan: Continue treatment with doxycycline and steroids day 2/5 will discharge back on prophylactic azithromycin when doxycycline complete. (3) Anemia: Status: Chronic Assessment and plan: Stable Iron deficient iron supplementation (4) Hypertension: Status: Chronic Assessment and plan: Blood pressure is stable continue monitoring continue diltiazem discussed with DR García Subjective Subjective Patient reports: no new complaints, feels better, tolerating liquids well, tolerating a regular diet, shortness of breath and afebrile Exam Narrative Exam Narrative: frail, chronically ill female of stated age. thin, awake alert oriented, no focal deficits. head atraumatic normocephalic, normal facial appearance. oral mucosa moist, no exudate. respirations even and labored. expiratory wheeze throughout, bases diminished. heart regular rate and rhythm, extremity with no peripheral edema, strength equal bilaterally, no rashes or lesion. Objective Last Vital Signs Temp 36.7 C 09/01/24 07:11 Pulse 74 09/01/24 07:11 Resp 18 09/01/24 07:11 BP 124/61 09/01/24 07:11 Pulse Ox 92 09/01/24 08:42 Time Spent with Patient Time Spent with Patient: 35-49 minutes Time was spent: preparing to see the patient(eg.review tests), obtaining and/or reviewing separately otained hiistory, ordering medications,tests, procedures, indepentently interpreting results and counseling the patient
[2024-09-01] MEDS: Melatonin 3 MG TAB 6 MG PO (19:27)
[2024-09-01 19:41] VITALS: BP 131/49; PULSE 72; RESP 20; TEMP 36.6; O2SAT 96
[2024-09-01 19:47] VITALS: O2SAT 95
[2024-09-02 06:40] LABS: Abs Immature Grans 0.06 10^3/uL (0.0-0.06); Absolute Basophil Count 0.02 10^3/uL (0.0-0.2); Absolute Eosinophil Count 0.15 10^3/uL (0.0-0.7); Absolute Lymphocyte Count 2.13 10^3/uL (1.2-3.4); Absolute Neutrophil Count 8.12 10^3/uL (1.2-6.7); Basophils % 0.2 %; Eosinophils % 1.3 %; HCT 29.6 % (36.0-46.0); HGB 8.9 g/dL (11.2-15.7); Immature Grans % 0.5 %; Lymphocytes % 18.4 %; MCH 25.4 pg (27.0-33.0); MCHC 30.1 % (32.0-36.0); MCV 84 fL (80-95); Monocytes % 9.5 %; Neutrophils % 70.1 %; Platelet Count 344 10^3/uL (130-400); RBC 3.51 10^6/uL (3.93-5.22); RDW 14.3 % (11.7-14.6); RDW-SD 43.7 fL; WBC 11.58 10^3/uL (4.4-10.8)
[2024-09-02 06:56] LABS: Anion Gap 3.1 mmol/L (3-11); BUN 26 mg/dL (7-18); CO2 35.9 mmol/L (21.0-32.0); CREATININE 0.5 mg/dL (0.55-1.02); Calcium 9.4 mg/dL (8.5-10.1); Chloride 99 mmol/L (98-107); Estimated GFR 96.54 (mL/min/1.73m2); Glucose 89 mg/dL (74-106); Potassium 4.2 mmol/L (3.5-5.1); Sodium 138 mmol/L (136-145)
[2024-09-02 07:39] LABS: Diff Comment RBC Morph Reviewed; Hypochromasia 1+; Polychromasia Present
[2024-09-02 07:48] VITALS: BP 126/84; PULSE 65; RESP 20; TEMP 36.4; O2SAT 98
--- NOTE | 2024-09-02 08:06 | NUR.NOTE ---
Nursing Note: This nurse gave handoff to Low Rascon RN who had been called in and is now primary nurse.
[2024-09-02] MEDS: Enoxaparin 40 MG/0.4 ML SYR SC (08:27)
[2024-09-02] MEDS: Atorvastatin 20 MG TAB PO (08:27)
[2024-09-02] MEDS: predniSONE 20 MG TAB 40 MG PO (08:27)
[2024-09-02] MEDS: dilTIAZem CD 180 MG CAPCR PO (08:27)
[2024-09-02] MEDS: Doxycycline Hyclate 100 MG CAP PO ×2 (08:28→19:32)
[2024-09-02] MEDS: guaiFENesin 600 MG TABCR 1200 MG PO ×2 (08:28→19:33)
[2024-09-02] MEDS: Omeprazole 20 MG CAPCR PO (08:28)
[2024-09-02] MEDS: Loratidine 10 MG TAB PO (08:29)
[2024-09-02] MEDS: Ferrous Sulfate 325 MG TAB PO (08:35)
[2024-09-02] MEDS: Cholecalciferol (Vitamin D3) 1,000 UNIT TAB 5000 UNITS PO (08:35)
[2024-09-02] MEDS: Tiotropium Bromide-Respimat 10 PUFF INH 2 PUFF IH (08:53)
[2024-09-02] MEDS: Budesonide/Formoterol 80/4.5 6.9 GM 60 PUFF INH IH ×2 (08:53→19:52)
[2024-09-02 08:55] VITALS: O2SAT 92
--- NOTE | 2024-09-02 09:03 | PDOC.CMPRO ---
Date of service: 09/02/24 Time of Service: 09:03 Care Management Progress Note Progress Note Text Progress Note Text: Patricia is admitted for hypoxic respiratory failure, she is off bi-pap and her respiratory status is back to baseline. Pt is well supported in the community, she lives with her Son in [place], has [facility] RN/PT, CM is Najma Kaur and Zana goes out to the home 3 days per week. Patricia is planning to discharge back to her sons home in [place] with resumption of services and community support when medically ready. CM will continue to follow. Discharge Potential Discharge Needs: PCP F/U Appt Anticipated Barriers to Discharge: None Identified Patient/Family Education Needs: Review discharge instructions, discuss Ask Me Three Transportation: Private vehicle Plan: Patricia is being treated for respiratory failure and is on day 3/5 of doxycycline and steroids. Discharge plan at this time is to return home when Doxycycline is completed with resumption of [facility] RN, PT and community supports. Her son will drive her home via private vehicle. She will follow up with her PCP and discharge plan of care. CM will continue to follow. Social Determinants of Health Screening Social Determinants of health last assessed in clinic: 09/02/24 Will the Patient Participate in the Screening?: Yes Do you worry about having a steady place to live?: no Problems where you live: no known problems In the past 12 months, have you had to go without electric, gas, oil or water in your home?: no 1. Within the past 12 months, we worried whether our food would run out before we got money to buy more.: Never true 2. Within the past 12 months, the food we bought just didn't last and we didn't have money to get more.: Never true Has lack of transportation kept you from medical appointments or from doing things needed for daily living?: no Has anyone in your life made you feel unsafe or unsupported?: no How hard is it for you to pay for the very basics like food, housing, medical care, and heating? Would you say it is:: Not hard at all Do you want help finding or keeping work or a job?: I do not need or want help If for any reason you need help with day-to-day activities such as bathing, preparing meals, shopping, managing finances, etc., do you get the help you need?: I don?t need any help How often do you feel lonely or isolated from those around you?: Never Do you speak a language other than [place] at home?: No Does the patient want assistance with any of the above?: No
[2024-09-02] MEDS: Melatonin 3 MG TAB 6 MG PO (19:32)
[2024-09-02 20:05] VITALS: BP 127/56; PULSE 79; RESP 20; TEMP 36.2; O2SAT 95
--- NOTE | 2024-09-02 21:44 | NUR.NOTE ---
Nursing Note: Pt states all she wants tonight is to get some rest. States she hasn't been able to rest because of the predinsone and noise. Enc to use her fans and we will keep her door shut during the night. SHe is alert and oriented. Her son is at bedside. SHe states she is ready to home. PIV to right wrist DC'd d/t leaking around insertion site. Pt complained that site was tender. 2x2 and papertape applied to insertion site.
[2024-09-03] MEDS: Omeprazole 20 MG CAPCR PO (06:31)
[2024-09-03 07:28] VITALS: BP 124/76; PULSE 72; RESP 18; TEMP 36.5; O2SAT 95
[2024-09-03] MEDS: Cholecalciferol (Vitamin D3) 1,000 UNIT TAB 5000 UNITS PO (07:43)
[2024-09-03] MEDS: Loratidine 10 MG TAB PO (07:43)
[2024-09-03] MEDS: guaiFENesin 600 MG TABCR 1200 MG PO (07:43)
[2024-09-03] MEDS: predniSONE 20 MG TAB 40 MG PO (07:44)
[2024-09-03] MEDS: Atorvastatin 20 MG TAB PO (07:44)
[2024-09-03] MEDS: Ferrous Sulfate 325 MG TAB PO (07:44)
[2024-09-03] MEDS: Doxycycline Hyclate 100 MG CAP PO (07:45)
[2024-09-03] MEDS: dilTIAZem CD 180 MG CAPCR PO (07:45)
[2024-09-03] MEDS: Enoxaparin 40 MG/0.4 ML SYR SC (07:45)
[2024-09-03] MEDS: Budesonide/Formoterol 80/4.5 6.9 GM 60 PUFF INH IH (08:24)
[2024-09-03] MEDS: Tiotropium Bromide-Respimat 10 PUFF INH 2 PUFF IH (08:24)
--- NOTE | 2024-09-03 08:39 | CMPROGNOTE_ITS ---
Date of service: 09/03/24 Time of Service: 08:40 Care Management Progress Note Discharge Potential Discharge Needs: PCP F/U Appt Anticipated Barriers to Discharge: None Identified Patient/Family Education Needs: Review discharge instructions, discuss Ask Me Three Transportation: Private vehicle Plan: Patricia is being treated for respiratory failure and is on day 3/5 of doxycycline and steroids. Discharge plan at this time is to return home when Doxycycline is completed with resumption of H RN, PT and community supports including [facility], & palliative. Her son will drive her home via private vehicle. She will follow up with her PCP and discharge plan of care. CM will continue to follow. Social Determinants of Health Screening Social Determinants of health last assessed in clinic: 09/02/24 Will the Patient Participate in the Screening?: Yes Do you worry about having a steady place to live?: no Problems where you live: no known problems In the past 12 months, have you had to go without electric, gas, oil or water in your home?: no Has lack of transportation kept you from medical appointments or from doing things needed for daily living?: no Has anyone in your life made you feel unsafe or unsupported?: no How hard is it for you to pay for the very basics like food, housing, medical care, and heating? Would you say it is:: Not hard at all Do you want help finding or keeping work or a job?: I do not need or want help If for any reason you need help with day-to-day activities such as bathing, preparing meals, shopping, managing finances, etc., do you get the help you need?: I don?t need any help How often do you feel lonely or isolated from those around you?: Never Do you speak a language other than Frisian at home?: No Does the patient want assistance with any of the above?: No Anticipated HH Services Anticipated HH Services at Discharge [facility] Resumption, PT and RN.
--- NOTE | 2024-09-03 09:33 | DSE_ITS ---
Date of service: 09/03/24 Time of Service: 09:36 DS: Diagnosis Discharge Diagnosis (1) Respiratory failure, unspecified with hypercapnia: Status: Acute (2) Acute exacerbation of chronic obstructive pulmonary disease (COPD): Status: Acute (3) Anemia: Status: Chronic (4) Hypertension: Status: Chronic Discharge Plan Disposition Patient Disposition: Home W/Home Health Services Condition: Improving Discharge Details Reason For Visit: hypoxic resp failure,copd exac Admit Date/Time: 08/31/24 13:07 Admit Provider: Quinn García Attending Provider: Quinn García Primary Care Provider: [facility] Hospital Course: This is a 79-year-old female with a known history of end-stage chronic obstructive pulmonary disease, who presented to the [facility] ED on 08/31/24 with worsening shortness of breath. She has a baseline oxygen requirement of 1-2 L and is DNR/DNI. She was seen in the Emergency Department on 08/29/2024 for a COPD exacerbation and discharged with prednisone and azithromycin. Despite following outpatient recommendations, her respiratory status continued to decline. Upon evaluation in the ED, she was diagnosed with acute on chronic respiratory failure secondary to COPD exacerbation. She was admitted for further management, with continued treatment using doxycycline and steroids. Patient improved and is now at baseline. She has been discharged to home with resumption of home health nursing and physical therapy. Patient was discharged with doxycycline to complete a 10 day course and prednisone for five days. Patient agrees with discharge plan. Patricia updated her COLST and advance directives during this admission - this was faxed to home health and scanned to her chart. Home Meds and New Rx's Prescriptions: New melatonin 3 mg Tablet 6 mg PO HS Qty: 0 0RF ferrous sulfate 325 mg (65 mg iron) Tablet 325 mg PO DAILY Qty: 0 0RF doxycycline hyclate 100 mg Capsule 100 mg PO BID Qty: 13 0RF prednisone 20 mg Tablet 40 mg PO DAILY Qty: 10 0RF Continued azithromycin 250 mg tablet 250 mg PO DAILY Qty: 90 3RF Patient Comments: three times a week cholecalciferol (vitamin D3) 125 mcg (5,000 unit) capsule 125 mcg PO DAILY ipratropium-albuterol 0.5 mg-3 mg(2.5 mg base)/3 mL solution for nebulization 3 ml inhalation TID PRN albuterol sulfate 90 mcg/actuation HFA aerosol inhaler 2 puff inhalation Q4H albuterol sulfate 2.5 mg /3 mL (0.083 %) solution for nebulization 2.5 mg inhalation Q6H PRN atorvastatin 20 mg tablet 20 mg PO DAILY omeprazole 20 mg capsule,delayed release(DR/EC) 20 mg PO DAILY Trelegy Ellipta 100-62.5-25 mcg blister with device 1 inh inhalation DAILY guaifenesin [Mucus Relief ER] 600 mg Tablet Extended Release 12hr 1,200 mg PO BID Qty: 30 0RF diltiazem HCl 180 mg capsule,extended release 24hr 180 mg PO DAILY Patient Comments: TAKE ONE CAPSULE BY MOUTH EVERY DAY prednisone 20 mg tablet 40 mg PO DAILY 4 Days Qty: 8 0RF Rx Instructions: start tomorrow- 08/30/24 loratadine 10 mg tablet 10 mg PO DAILY 7 Days Qty: 7 0RF Discharge Instructions Instructions: Chronic Obstructive Pulmonary Disease (COPD) (DC), Doxycycline Additional Instructions: 1. Medications * Take all prescribed medications as directed. * Inhalers - continue * Oral steroids - continue prednisone * Antibiotics - doxycycline 100 mg twice a day for 7 days * Oxygen - continue * Use spacers with inhalers if recommended. * Do not stop any medications without consulting your healthcare provider. 2. Oxygen Therapy * Use oxygen as prescribed * Do not smoke or allow anyone to smoke around your oxygen. * Keep oxygen equipment clean and properly stored. * Contact your DME (Durable Medical Equipment) provider for supplies or issues. 3. Breathing Techniques * Practice pursed-lip breathing and diaphragmatic breathing to improve air exchange. * Use incentive spirometry if instructed. 4. Activity & Exercise * Gradually increase activity as tolerated. * Avoid heavy lifting or strenuous activity until cleared by your doctor. * Walking is encouraged?start slowly and increase gradually. * Rest often and avoid overexertion. 5. Nutrition & Hydration * Eat small, frequent meals to avoid bloating. * Stay well hydrated (unless fluid-restricted). * Monitor for signs of weight loss or gain, and notify your provider. 6. Smoking Cessation * If you smoke, quitting is the most important step you can take to improve your health. * Resources: * 5-418-UPRB-NOW * Smoking cessation programs, patches, medications, counseling. 7. Follow-Up Care * Follow up with your primary care provider within 7 days. * Pulmonology appointment if referred. [facility] nursing and physical therapy 8. When to Seek Medical Attention Call 911 or go to the ER if you experience: * Severe shortness of breath not relieved by medications * Chest pain or tightness * Confusion or drowsiness * Blue or bartlett lips or fingertips * Fever > 100.4?F (38?C) with worsening symptoms Call your doctor if you notice: * Increased coughing, wheezing, or shortness of breath * Changes in sputum color, amount, or consistency * Medication side effects Stand Alone Forms: Nursing Discharge Form Referrals: Mechelle Sprague [Primary Care Provider] - 09/18/24 10:15 am Activity:: Activity as Tolerated Equipment/Supplies:: No Equipment Needed Diet:: As Tolerated Discharge Orders Discharge Orders: Discharge Order (Routine); Ordered 09/03/24 Ordered By: Katie Griffin DS: Summary Time Spent with Patient providing and/or coordinating discharge services: Greater than 30 minutes Status at Discharge Functional status at discharge: uses cane/walker Overall status at discharge: patient is back to baseline Mental Status: mental status grossly normal Speech and Movement: speech and movement normal Mood: congruent mood Affect: normal affect Quality:SDOH Health Related Social Needs: No Data to Display Exam Narrative Exam Narrative: General Appearance: No increased work of breathing. Thin. Speaking in complete sentences. HEENT: Within normal limits. Respiratory: Diminished breath sounds bilaterally with expiratory wheezing. Intermittent cough. Cardiovascular: Heart regular rate and rhythm, no murmurs. Extremities: No leg swelling. No calf tenderness. Skin: Warm and dry, no rash. Neurological: Normal. Psych Mental Status: mental status grossly normal Speech and Movement: speech and movement normal Mood: congruent mood Affect: normal affect DS: Data Vitals/I&O Vitals and I&O: Vital Signs Temperature 36.5 C 09/03/24 07:28 Temperature Source Temporal Artery Scan 09/03/24 07:28 Pulse 72 09/03/24 07:28 Pulse Rhythm Regular 08/31/24 12:53 Pulse 86 08/31/24 12:32 Respiratory Rate 18 09/03/24 07:28 Respiratory Effort Short of Breath 08/31/24 12:53 Respiratory Depth Normal 08/31/24 12:53 Respiratory Pattern Normal 08/31/24 12:53 Blood Pressure 124/76 09/03/24 07:28 Blood Pressure Mean 92 09/03/24 07:28 Pulse Oximetry 95 09/03/24 07:28 Oxygen Delivery Method Nasal Cannula 09/03/24 07:28 Oxygen Flow Rate 2 09/03/24 07:28 Fraction of Inspired Oxygen (FIO2) 28 08/31/24 08:59 Pain Level 0 09/02/24 20:05 Intake & Output 09/02/24 09/02/24 09/03/24 11:59 23:59 11:59 Intake Total 350 / 350 440 / 440 Output Total 800 / 1650 850 / 1650 250 / 250 Balance -450 / -1300 -850 / -1300 190 / 190 Intake: IV 50 / 50 Oral 300 / 300 440 / 440 Output: Urine 800 / 1650 850 / 1650 250 / 250 Other: Urine Color Yellow Yellow Yellow Urine Appearance Clear Cloudy Clear Urine Odor Normal Strong Normal Comment pt voided into commode pt threw toilet paper in urine, unmeasurable. PFSH All Active Problems (Updated 08/31/24 @ 15:25 by Gabriela Lama NP) Hypertension (Chronic) Anemia (Chronic) Acute exacerbation of chronic obstructive pulmonary disease (COPD) (Acute) Respiratory failure, unspecified with hypercapnia (Acute) COPD exacerbation (Acute) Dyspnea (Acute) At risk for falling (Acute) ACP (advance care planning) (Acute) Impaired instrumental activities of daily living (Acute) Acute bronchitis with chronic obstructive pulmonary disease (COPD) (Acute) COPD exacerbation (Acute) Pleural effusion (Acute) Hypoxic respiratory failure (Chronic) COPD (chronic obstructive pulmonary disease) (Chronic) Tear film insufficiency (Acute) Palpitations (Acute) Osteoporosis (Chronic) Nicotine dependence (Acute) Hyperlipidemia (Acute) Hearing loss (Acute) Fluid in endometrial cavity (Acute) Exposure to hepatitis B (Acute) COPD, severe (Acute) Closed fracture of tarsal and metatarsal bones (Acute) Closed fracture of left wrist (Acute) Allergic rhinitis (Acute) Adhesive capsulitis of shoulder (Acute) Acute [id number] elevation myocardial infarction (Acute) Abnormal weight loss (Acute) Abnormal findings on diagnostic imaging of liver and biliary tract (Acute) Medical History Anemia Hypertension H/O mammogram 08/30/11 H/O echocardiogram 07/02/21 Urinary tract infectious disease Genitourinary symptoms Chronic obstructive pulmonary disease with (acute) lower respiratory infection Surgical History H/O tubal ligation 1974 H/O repair of rotator cuff bilateral shoulders,04/17/03 History of colonoscopy 02/04/19 Family History Mother Cancer Diabetes Hypertension Father Myocardial infarction Social History Smoking/Tobacco Use Status: Current-Occasional Tobacco Type: cigarettes Years smoked: 50 Tobacco: How many years used: 60 Smoking risk assessment performed?: Yes Alcohol Intake: former Drug use: Never Substance use type: does not use Housing: house Do you feel safe at home: Yes Do you feel safe in your relationship?: Yes Additional Social history: Current tobacco user. Use:4-5 cigarettes per day. Started at age 17. Time Spent with Patient Time Spent with Patient: 45-69 minutes Time was spent: preparing to see the patient(eg.review tests), ordering medications,tests, procedures, referring, communicating with other health medicare insurance specialist, indepentently interpreting results, counseling the patient and care coordination
[2024-09-03] MEDS: Docusate Sodium 100 MG/10 ML CUP PO (09:42)
--- NOTE | 2024-09-03 10:09 | CMDISCH_ITS ---
Date of service: 09/03/24 Time of Service: 10:09 LACE Index Scoring Tool Questions: Length of Stay (in days): 3 Was the patient admitted via the E.D.?: Yes Comorbidities: Chronic Pulmonary Disease E.D. Visits: 5 Answers: Total Score: 12 Risk of Readmission: High Risk Care Management Discharge Plan Reason for Hospitalization: Hypoxic resp failure, COPD exacerbation Discharge Plan: Patricia will return home today with a resumption of [facility] RN, PT and community supports. Her son will drive her home via private vehicle. She will follow up with her PCP and discharge plan of care. Patient/Family Education Needs: Review discharge instructions, activity, limitations and plan of care. Discuss Ask Me Three. Services Needed at Discharge: Home Health Care Services (RN/PT) [facility] Health Related Social Needs: No Data to Display
== END 2024-09-03 17:06 | disposition home health service (06) | DRG 190 ==
LOC: ER 10:58 → MS 12:51
PROVIDERS: Nurse Practitioner Acute Care; Student in an Organized Health Care Education/Training Program; Admitting Provider Hospitalist; Emergency Provider Emergency Medicine; PCP Nurse Practitioner Family; Responsible Provider Nurse Practitioner Family; Visit Provider Hospitalist
DX: J44.1 Chronic obstructive pulmonary disease with (acute) exacerbation (principal); J96.22 Acute and chronic respiratory failure with hypercapnia; J96.11 Chronic respiratory failure with hypoxia; Z68.1 Body mass index [BMI] 19.9 or less, adult; D50.9 Iron deficiency anemia, unspecified; I10 Essential (primary) hypertension; R63.4 Abnormal weight loss; Z99.81 Dependence on supplemental oxygen; Z66 Do not resuscitate; M81.0 Age-related osteoporosis without current pathological fracture; F17.210 Nicotine dependence, cigarettes, uncomplicated; E78.5 Hyperlipidemia, unspecified; I25.2 Old myocardial infarction
CPT/HCPCS: 00123; 36415; 80048; 80053; 82805; 87637; 93005; 94640; 96365; 96366; 96375; 99291; J1650; 71045; 83880; 84484; 85025; 85610; 85730; 93010; 94664; 94667; 94668; 94760; 99223; 99233; 99239; J2060; J2405; J2765; J3475; J7512; J7620

== ENCOUNTER 2024-09-16 16:08 | Outpatient (REF) | payer MEDICARE, MEDICAID, SELFPAY ==
[2024-09-16 14:43] LABS: HCT 30.7 % (36.0-46.0); HGB 9.3 g/dL (11.2-15.7); MCH 25.1 pg (27.0-33.0); MCHC 30.3 % (32.0-36.0); MCV 83 fL (80-95); MPV 9.9 fL (8.0-11.0); Platelet Count 432 10^3/uL (130-400); RBC 3.71 10^6/uL (3.93-5.22); RDW 15.9 % (11.7-14.6); RDW-SD 47.3 fL; WBC 15.84 10^3/uL (4.4-10.8)
[2024-09-16 15:06] LABS: Iron 13 ug/dL (50-170); Total Iron Binding Capacity 409 ug/dL (250-450); Transferrin Sat 3 % (15-50)
[2024-09-16 15:18] LABS: Ferritin 15 ng/mL (8-252)
== END 2024-09-16 16:09 | disposition home or self-care (01) ==
LOC: NCHCN 16:08
PROVIDERS: PCP Nurse Practitioner Family; Visit Provider Nurse Practitioner Family
DX: D64.9 Anemia, unspecified (principal)
CPT/HCPCS: 85027; 82728; 83540; 83550

== ENCOUNTER 2024-10-07 18:20 | Outpatient (REF) | payer MEDICARE, MEDICAID, SELFPAY ==
[2024-10-07 15:44] LABS: Abs Immature Grans 0.02 10^3/uL (0.0-0.06); Absolute Basophil Count 0.04 10^3/uL (0.0-0.2); Absolute Eosinophil Count 0.06 10^3/uL (0.0-0.7); Absolute Lymphocyte Count 1.26 10^3/uL (1.2-3.4); Absolute Neutrophil Count 5.53 10^3/uL (1.2-6.7); Basophils % 0.5 %; Eosinophils % 0.8 %; HCT 37.7 % (36.0-46.0); HGB 10.9 g/dL (11.2-15.7); Immature Grans % 0.3 %; Lymphocytes % 16.8 %; MCH 25.3 pg (27.0-33.0); MCHC 28.9 % (32.0-36.0); MCV 88 fL (80-95); MPV 10.9 fL (8.0-11.0); Neutrophils % 73.6 %; Platelet Count 436 10^3/uL (130-400); RDW 18.8 % (11.7-14.6); RDW-SD 60.3 fL; WBC 7.51 10^3/uL (4.4-10.8)
[2024-10-07 16:20] LABS: Iron 25 ug/dL (50-170); Total Iron Binding Capacity 404 ug/dL (250-450); Transferrin Sat 6 % (15-50)
[2024-10-07 16:24] LABS: Ferritin 40 ng/mL (8-252)
[2024-10-08 07:37] LABS: Transferrin 297 mg/dL (201-352)
== END 2024-10-07 18:21 | disposition home or self-care (01) ==
LOC: NCHCN 18:20
PROVIDERS: PCP Nurse Practitioner Family; Visit Provider Nurse Practitioner Family
DX: D64.9 Anemia, unspecified (principal)
CPT/HCPCS: 82728; 83540; 83550; 84466; 85025

== ENCOUNTER → 2024-10-21 10:58 | Outpatient (BNVA) | payer MEDICARE, MEDICAID, SELFPAY | PROVIDERS: PCP Nurse Practitioner Family; Referring Provider Nurse Practitioner Family; Visit Provider Physician Assistant Surgical | DX: J44.9 Chronic obstructive pulmonary disease, unspecified (principal); J96.91 Respiratory failure, unspecified with hypoxia; J90 Pleural effusion, not elsewhere classified | CPT/HCPCS: 99214 ==

== ENCOUNTER → 2024-10-25 10:57 | Outpatient (BNVA) | payer MEDICARE, MEDICAID, SELFPAY | PROVIDERS: PCP Nurse Practitioner Family; Referring Provider Nurse Practitioner Family; Visit Provider Surgery | DX: D64.9 Anemia, unspecified (principal); R63.4 Abnormal weight loss; J44.9 Chronic obstructive pulmonary disease, unspecified; F17.210 Nicotine dependence, cigarettes, uncomplicated; Z99.81 Dependence on supplemental oxygen; Z86.19 Personal history of other infectious and parasitic diseases | CPT/HCPCS: 99214 ==

== ENCOUNTER 2024-10-31 19:37 | Emergency (ER) | payer MEDICARE, MEDICAID, SELFPAY ==
[2024-10-31] VITALS (27 sets, daily range): BP systolic 111–148; BP diastolic 35–97; PULSE 41–91; RESP 15–26; TEMP 36; O2SAT 89–98
--- NOTE | 2024-10-31 19:30 | RT.EKG_ITS ---
APPROVED REPORT Exam: Resting ECG Reason for Exam: bradycardia Patient Location: E HR:82 bpm ECG Measurements Heart Rate 82 AXIS NV 97 P 58 QRSd 73 QRS 65 QT 369 T 64 QTc 431 Conclusion Sinus rhythm...normal P axis, V-rate 60- 99 Ventricular trigeminy...trigeminy string>6 w/ V complexes
--- NOTE | 2024-10-31 20:02 | W.ED.GENAD ---
Discharge Plan Disposition Patient Disposition: Home Condition: Improving Discharge Details Clinical Impression: Palpitations, COPD (chronic obstructive pulmonary disease) Primary Care Provider: Mechelle Sprague ED Provider: Fidel Morrell Meds and New Rx's Prescriptions: Continued azithromycin 250 mg tablet 250 mg PO DAILY Qty: 90 3RF Patient Comments: three times a week cholecalciferol (vitamin D3) 125 mcg (5,000 unit) capsule 125 mcg PO DAILY Combivent Respimat 20-100 mcg/actuation mist 1 puff inhalation Q4H Qty: 4 12RF Rx Instructions: space evenly during waking hours Breztri Aerosphere 160-9-4.8 mcg/actuation HFA aerosol inhaler 2 inh inhalation BID Qty: 10.7 12RF guaifenesin [Mucus Relief ER] 600 mg tablet extended release 12hr 600 mg PO ONCE pantoprazole 40 mg tablet,delayed release (DR/EC) 40 mg PO DAILY Qty: 30 11RF ipratropium-albuterol 0.5 mg-3 mg(2.5 mg base)/3 mL solution for nebulization 3 ml inhalation TID PRN albuterol sulfate 90 mcg/actuation HFA aerosol inhaler 2 puff inhalation Q4H albuterol sulfate 2.5 mg /3 mL (0.083 %) solution for nebulization 2.5 mg inhalation Q6H PRN atorvastatin 20 mg tablet 20 mg PO DAILY Trelegy Ellipta 100-62.5-25 mcg blister with device 1 inh inhalation DAILY trazodone 50 mg tablet 25 mg PO QHS PRN aspirin [Adult Low Dose Aspirin] 81 mg tablet,delayed release (DR/EC) 81 mg PO DAILY Ensure Liquid PO DAILY diltiazem HCl 180 mg capsule,extended release 24hr 180 mg PO DAILY Patient Comments: TAKE ONE CAPSULE BY MOUTH EVERY DAY melatonin 3 mg Tablet 6 mg PO HS Qty: 0 0RF ferrous sulfate 325 mg (65 mg iron) Tablet 325 mg PO DAILY Qty: 0 0RF Discharge Instructions Instructions: Chronic obstructive pulmonary disease (COPD), Palpitations ED Referrals: Mechelle Sprague [Primary Care Provider, Medicine] - 2 days Discharge Data Discharge Physician: Fidel Morrell HPI General Date/Time Provider Initiated Documentation: 10/31/24 20:01. HPI Narrative: Patient presents emergency department stating that she has been very tired and noticed that her pulse oximeter was reading that her pulse was in the 30s and 40s this morning decided to come in tonight. Denies any syncope denies any chest pain she has end-stage oxygen dependent COPD but denies any shortness of breath Related Data Home Medications ?Medication ?Instructions ?Recorded ?Confirmed albuterol sulfate 2.5 mg/3 mL 2.5 mg inhalation Q6H PRN 04/18/23 10/25/24 (0.083 %) solution for nebulization albuterol sulfate 90 mcg/actuation 2 puff inhalation Q4H 04/18/23 10/25/24 aerosol inhaler atorvastatin 20 mg tablet 20 mg PO DAILY 04/18/23 10/25/24 fluticasone fur. 100 mcg-umeclid 1 inh inhalation DAILY 04/18/23 10/25/24 62.5 mcg-vilant 25 mcg inhalat.powder (Trelegy Ellipta) ipratropium 0.5 mg-albuterol 3 mg 3 ml inhalation TID PRN 04/18/23 10/25/24 (2.5 mg base)/3 mL nebulization soln azithromycin 250 mg tablet 250 mg PO DAILY #90 tabs 04/24/24 10/25/24 cholecalciferol (vitamin D3) 125 125 mcg PO DAILY 07/23/24 10/25/24 mcg (5,000 unit) capsule diltiazem HCl 180 mg 180 mg PO DAILY 08/31/24 10/25/24 capsule,extended release 24 hr ferrous sulfate 325 mg (65 mg 325 mg PO DAILY #0 tabs 09/03/24 10/25/24 iron) tablet melatonin 3 mg tablet 6 mg (2 x 3 mg) PO HS #0 tabs 09/03/24 10/25/24 guaifenesin 600 mg tablet, 600 mg PO ONCE 10/01/24 10/25/24 extended release 12 hr (Mucus Relief ER) aspirin 81 mg tablet,delayed 81 mg PO DAILY 10/08/24 10/25/24 release (Adult Low Dose Aspirin) food supplemt, lactose-reduced ml PO DAILY 10/08/24 10/25/24 (Ensure oral liquid) trazodone 50 mg tablet 25 mg PO QHS PRN 10/08/24 10/25/24 budesonide 160 mcg-glycopyr 9 2 inh inhalation BID #10.7 grams 10/21/24 10/25/24 mcg-formot 4.8 mcg/actuation HFA inhaler (Breztri Aerosphere) ipratropium 20 mcg-albuterol 100 1 puff inhalation Q4H #4 grams 10/21/24 10/25/24 mcg/actuation mist for inhalation (Combivent Respimat) pantoprazole 40 mg tablet,delayed 40 mg PO DAILY #30 tabs 10/25/24 10/25/24 release Previous Rx's ?Medication ?Instructions ?Recorded azithromycin 250 mg tablet 250 mg PO DAILY #90 tabs 04/24/24 ferrous sulfate 325 mg (65 mg 325 mg PO DAILY #0 tabs 09/03/24 iron) tablet melatonin 3 mg tablet 6 mg (2 x 3 mg) PO HS #0 tabs 09/03/24 budesonide 160 mcg-glycopyr 9 2 inh inhalation BID #10.7 grams 10/21/24 mcg-formot 4.8 mcg/actuation HFA inhaler (Breztri Aerosphere) ipratropium 20 mcg-albuterol 100 1 puff inhalation Q4H #4 grams 10/21/24 mcg/actuation mist for inhalation (Combivent Respimat) pantoprazole 40 mg tablet,delayed 40 mg PO DAILY #30 tabs 10/25/24 release Allergies Allergy/AdvReac Type Severity Reaction Status Date / Time pollen extracts Allergy Unknown Other (See Verified 10/25/24 11:26 Comment) sulfamethoxazole (From Allergy Unknown Other (See Verified 10/25/24 11:26 Sulfamethoxazole-Trimethoprim) Comment) trimethoprim (From Allergy Unknown Other (See Verified 10/25/24 11:26 Sulfamethoxazole-Trimethoprim) Comment) lemon Allergy Other (See Verified 10/25/24 11:26 Comment) seasonal Allergy Unknown Other (See Uncoded 10/25/24 11:26 Comment) sulfa drugs Allergy Unknown Other (See Uncoded 10/25/24 11:26 Comment) General Stated Complaint: Palpitatns SHAREE: 3 Review of Systems Narrative: Review of Systems: Constitutional: No fevers, chills, sweats Eye: No recent visual problems ENT: No ear pain, nasal congestion, sore throat Respiratory: No shortness of breath, cough Cardiovascular: No Chest pain, palpitations, syncope Gastrointestinal: No nausea, vomiting, diarrhea Genitourinary: No hematuria Parish/Lymph: Negative for bruising tendency, swollen lymph glands Endocrine: Negative for excessive thirst, excessive hunger Musculoskeletal: No back pain, neck pain, joint pain, muscle pain, decreased range of motion Integumentary: No rash, pruritus, abrasions Neurologic: Alert & oriented X 4 Psychiatric: No anxiety, depression Exam Narrative Exam Narrative: Exam; vitals signs as reported above normal Constitutional; In no acute distress, afebrile General: cooperative, healthy appearing, comfortable and no acute distress HEENT: Head: normal to inspection, no palpable skull fracture and normocephalic atraumatic Eyes: : appearance normal, both eyes and all related structures EOM intact bilaterally Pupils: PERRL : conjunctiva normal Direct ophthalmoscopy: normal light reflex, normal conjunctiva, normal visual acuity Ears: Normal TM, normal external canal Nose: normal no rhinorreha Neck no JVD, supple non tender Neck: normal visual inspection, full ROM and no lymphadenopathy Chest: normal inspection of the chest Respiratory : normal respiratory effort and able to speak in complete sentences normally decreased breath sounds bilateral Cardio Rate: regular rate, rhythm: regular rhythm normal heart sounds S1 and S2 no murmurs, gallops, or rubs GI : normal to inspection, normal bowel sounds, soft, non tender, non distended, no organomegaly Back/Spine/ no CVA tenderness Thoracic/Lumbar Spine: no tenderness or deformities Skin no rashes or lesions Neuro: patient alert oriented x 4 and no meningeal signs, Cranial Nerves: CN's II-XI intact bilaterally, Cognition: normal cognition, Speech: speech normal, Gait: normal gait, Depp tendon reflexes normal 2+ muscle strength 5/5 bilaterally Extremities, no edema, full range of motion, normal strength Course Vital Signs Vital signs: Vital Signs Temperature 36.0 C L 10/31/24 19:43 Pulse 82 10/31/24 19:43 Respiratory Rate 16 10/31/24 19:43 Blood Pressure 147/77 H 10/31/24 19:43 Pulse Oximetry 96 10/31/24 19:43 Temperature 36.0 C L 10/31/24 19:43 Temperature Source Tympanic 10/31/24 19:43 Pulse 82 10/31/24 19:43 Respiratory Rate 16 10/31/24 19:43 Blood Pressure 147/77 H 10/31/24 19:43 Pulse Oximetry 96 10/31/24 19:43 Medical Decision Making MDM: Summary: Patient presented to the emergency department stating that she had her pulse oximeter to register her pulse being low. Denies any other symptoms of lethargy. Here labs are completely unremarkable she has end-stage COPD in the chest which does not show pneumonia just hyperinflated lung vargas on exam she is not wheezing. Her O2 sat is at baseline. 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 Troponins are negative BNP is low. Patient will be discharged with follow-up with her PCP or cardiology for Zio patch or Holter monitor Data Review Analysis All the data on this patient was reviewed by me including laboratory and imaging studies as well as bedside studies performed by me Independent review of Studies Imaging Chest x-ray unchanged shows hyperinflated lung vargas Lab: Labs do not show any abnormality Risk Stratification: Patient who had an episode of palpitations and states that her pulse was low but this time there is no evidence of such she is at baseline with her oxygen dependent COPD. 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 Bradycardia 2. Tachycardia 3. A-fib 4. Multifocal atrial tachycardia 5. Consultants: Shared disposition: Patient assess disposition and will follow accordingly Impression: Medical Records Medical records reviewed: Yes I reviewed the patient's medical records. ECG Data Attestation: I personally reviewed and interpreted this ECG (s) as follows: Prior ECG tracings: available for review Interpretation: Heart rate of 82 normal sinus rhythm occasional ventricular bigeminy no acute ST-T changes PFSH All Active Problems (Updated 10/31/24 @ 22:27 by Fidel Morrell MD) Fecal occult blood test positive (Acute) Hypoproteinemia (Acute) Chronic anemia (Acute) Acute exacerbation of chronic obstructive pulmonary disease (COPD) (Acute) COPD exacerbation (Acute) Dyspnea (Acute) At risk for falling (Acute) ACP (advance care planning) (Acute) Impaired instrumental activities of daily living (Acute) Acute bronchitis with chronic obstructive pulmonary disease (COPD) (Acute) COPD exacerbation (Acute) Pleural effusion (Acute) Hypoxic respiratory failure (Chronic) COPD (chronic obstructive pulmonary disease) (Chronic) Tear film insufficiency (Acute) Palpitations (Acute) Osteoporosis (Chronic) Nicotine dependence (Acute) Hyperlipidemia (Acute) Hearing loss (Acute) Fluid in endometrial cavity (Acute) Exposure to hepatitis B (Acute) COPD, severe (Acute) Closed fracture of tarsal and metatarsal bones (Acute) Closed fracture of left wrist (Acute) Allergic rhinitis (Acute) Adhesive capsulitis of shoulder (Acute) Acute [id number] elevation myocardial infarction (Acute) Abnormal weight loss (Acute) Abnormal findings on diagnostic imaging of liver and biliary tract (Acute) Medical History Heartburn Dizziness Constipation Anemia Hypertension H/O mammogram 08/30/11 H/O echocardiogram 07/02/21 Urinary tract infectious disease Genitourinary symptoms Chronic obstructive pulmonary disease with (acute) lower respiratory infection Surgical History H/O tubal ligation 1974 H/O repair of rotator cuff bilateral shoulders,04/17/03 History of colonoscopy 02/04/19 Family History Mother Cancer Diabetes Hypertension Father Myocardial infarction Social History Smoking/Tobacco Use Status: Current-Occasional Tobacco Type: cigarettes Years smoked: 50 Tobacco: How many years used: 60 Smoking risk assessment performed?: Yes Alcohol Intake: former Drug use: Never Substance use type: does not use Housing: house Do you feel safe at home: Yes Do you feel safe in your relationship?: Yes Additional Social history: Current tobacco user. Use:4-5 cigarettes per day. Started at age 17.
[2024-10-31] MEDS: Normal Saline 1,000 ML 1000 ML IV (21:23)
[2024-10-31 21:29] LABS: Abs Immature Grans 0.02 10^3/uL (0.0-0.06); HCT 36.2 % (36.0-46.0); HGB 11.0 g/dL (11.2-15.7); Immature Grans % 0.3 %; MCH 26.3 pg (27.0-33.0); MCHC 30.4 % (32.0-36.0); MCV 87 fL (80-95); MPV 10.6 fL (8.0-11.0); RBC 4.18 10^6/uL (3.93-5.22); RDW 20.9 % (11.7-14.6); RDW-SD 66.0 fL; WBC 7.43 10^3/uL (4.4-10.8)
--- NOTE | 2024-10-31 21:32 | DI.RAD_ITS ---
Exam(s) XR PORTABLE CHEST AP EXAM: XR PORTABLE CHEST AP CLINICAL HISTORY: cough. TECHNIQUE: 2D digital imaging was performed. COMPARISON: CR XR PORTABLE CHEST AP from 08/31/2024 FINDINGS: Single AP portable view. Heart size is normal. The mediastinum is not widened. Bilateral pulmonary hyper inflation again noted but no new infiltrates nor pleural effusions. No pulmonary edema. Advanced degenerative changes in the right shoulder glenohumeral joint again noted. IMPRESSION: No acute pulmonary findings on this single AP portable view of the chest.Bilateral are COPD hyperinflation again noted. DATA REPOSITORY: RADIATION DOSE DELIVERED:
[2024-10-31 21:45] LABS: ALT 28 U/L (14-59); AST 19 U/L (15-37); Albumin 3.8 g/dL (3.4-5.0); Alkaline Phosphatase 65 U/L (46-116); Anion Gap 7.3 mmol/L (3-11); BUN 18 mg/dL (7-18); Bilirubin, Total 0.2 mg/dL (0.2-1.0); CO2 31.7 mmol/L (21.0-32.0); Calcium 9.4 mg/dL (8.5-10.1); Chloride 105 mmol/L (98-107); Estimated GFR 101.87 (mL/min/1.73m2); Glucose 88 mg/dL (74-106); Magnesium 2.2 mg/dL (1.8-2.4); NT-proBNP 214 pg/mL (<300); Potassium 3.8 mmol/L (3.5-5.1); Sodium 144 mmol/L (136-145); Total Protein 6.8 g/dL (6.4-8.2); Troponin I 5 ng/L (<or=51)
[2024-10-31 21:46] LABS: Anisocytosis 2+; Hypochromasia 1+; Platelet Count 288 10^3/uL (130-400)
[2024-10-31 21:48] LABS: Troponin I 7 ng/L (<or=51)
== END 2024-10-31 22:46 | disposition home or self-care (01) ==
PROVIDERS: Emergency Provider Emergency Medicine Emergency Medical Services; PCP Nurse Practitioner Family
DX: R00.2 Palpitations (principal); J44.9 Chronic obstructive pulmonary disease, unspecified; I10 Essential (primary) hypertension; F17.210 Nicotine dependence, cigarettes, uncomplicated; Z79.82 Long term (current) use of aspirin; Z99.81 Dependence on supplemental oxygen
CPT/HCPCS: 36415; 80053; 93005; 96360; 99285; 71045; 83735; 83880; 84484; 85025; 93010; 99284

== ENCOUNTER 2024-11-13 09:47 | Outpatient (CLI) | payer MEDICARE, MEDICAID, SELFPAY | END 2024-11-13 09:48 | disposition home or self-care (01) | PROVIDERS: PCP Nurse Practitioner Family; Visit Provider Family Medicine | DX: R00.1 Bradycardia, unspecified (principal) | CPT/HCPCS: 93246 ==

== ENCOUNTER 2024-12-05 07:02 | Outpatient (CLI) | payer MEDICARE, MEDICAID, SELFPAY ==
--- NOTE | 2024-12-05 14:37 | W.CARDEVENT ---
Date of service: 12/05/24 Time of Service: 14:37 Cardiac Event Recorder Referring Provider:: Nano Guerrero Indications:: Bradycardia Cardiac Event Note: This is a cardiac event monitor. Patient was monitored for 13 days and 23 hours. Rhythm throughout was sinus with an average heart rate of 83. Minimum was 60, maximum 122 There were occasional isolated ventricular ectopic beats. Very rare couplets. There were several ventricular runs 3-5 beats in duration. There were occasional atrial premature beats. Some self-limited atrial runs occurred. The longest of these was 13 beats in duration There was no atrial fibrillation, no high-grade AV block, no pauses greater than 3 seconds. No patient's symptoms were reported
== END 2024-12-05 07:03 | disposition home or self-care (01) ==
LOC: CARDOPNVT 07:02
PROVIDERS: PCP Nurse Practitioner Family; Visit Provider Internal Medicine Cardiovascular Disease
DX: R00.1 Bradycardia, unspecified (principal); I49.3 Ventricular premature depolarization; I49.1 Atrial premature depolarization
CPT/HCPCS: 93248

== ENCOUNTER 2024-12-27 15:40 | Outpatient (REF) | payer MEDICARE, MEDICAID, SELFPAY ==
[2024-12-27 21:44] LABS: Abs Immature Grans 0.01 10^3/uL (0.0-0.06); HCT 38.9 % (36.0-46.0); HGB 12.0 g/dL (11.2-15.7); Immature Grans % 0.1 %; MCH 27.0 pg (27.0-33.0); MCHC 30.8 % (32.0-36.0); MCV 87 fL (80-95); MPV 10.2 fL (8.0-11.0); Platelet Count 301 10^3/uL (130-400); RBC 4.45 10^6/uL (3.93-5.22); RDW 17.2 % (11.7-14.6); RDW-SD 55.7 fL; WBC 6.91 10^3/uL (4.4-10.8)
[2024-12-27 21:54] LABS: Iron 30 ug/dL (50-170); Total Iron Binding Capacity 419 ug/dL (250-450); Transferrin Sat 7 % (15-50)
[2024-12-27 22:26] LABS: Ferritin 11 ng/mL (8-252)
== END 2024-12-27 15:41 | disposition home or self-care (01) ==
LOC: NCHCN 15:40
PROVIDERS: PCP Nurse Practitioner Family; Visit Provider Nurse Practitioner Family
DX: D64.9 Anemia, unspecified (principal)
CPT/HCPCS: 82728; 83540; 83550; 85025

== ENCOUNTER → 2025-01-29 10:02 | Outpatient (BNVA) | payer MEDICARE, MEDICAID, SELFPAY | PROVIDERS: PCP Nurse Practitioner Family; Referring Provider Nurse Practitioner Family; Visit Provider Physician Assistant Surgical | DX: J44.9 Chronic obstructive pulmonary disease, unspecified (principal); J96.91 Respiratory failure, unspecified with hypoxia; J90 Pleural effusion, not elsewhere classified; Z87.891 Personal history of nicotine dependence; Z29.11 Encounter for prophylactic immunotherapy for respiratory syncytial virus (RSV) | CPT/HCPCS: 90471; 90679; 99214 ==